=== PATIENT | male | born 1945 | race Caucasian/White ===

== ENCOUNTER 2016-05-13 11:00 | Day surgery (SDC) | payer MEDICARE, OTHER ==
[2016-05-11 13:56] VITALS: BMI 19.3
[~2016-05-13 11:00] MED LIST: LACTATED RINGERS 1,000 ML IV SCH
[2016-05-13] MEDS ORDERED: LIDOCAINE 1% 20 ML VIAL (10MG/ML) FOR IV START INTRADERMA ONE (11:25)
[2016-05-13 11:32] VITALS: RESP 16; TEMP 98.4
[2016-05-13] MEDS ORDERED: LIDOCAINE 1% INJ 10MG/ML (20 ML MDV) ONE (11:49)
[2016-05-13] MEDS ORDERED: PROPOFOL 10 MG/ML 20 ML VIAL IV ONE (11:49)
--- NOTE | 2016-05-13 12:22 | P.PCN ---
Date of Procedure: 05/13/16 Procedure(s) Performed: Brief history: Patient is a pleasant 72-year-old white male, scheduled for an elective upper endoscopy as well as colonoscopy as a part of evaluation of abdominal pain, mostly in the epigastric area, change in bowel habits and weight loss for the last 6 months duration. Procedure performed: Esophagogastroduodenoscopy with biopsy Colonoscopy with snare polypectomy Preoperative diagnosis: Epigastric pain Change in bowel habits and weight loss Anesthesia: MAC Procedure: After informed consent was obtained from the patient was brought into the endoscopy unit and IV conscious sedation was administered by anesthesia under continuous monitoring. Initially upper endoscopy was done. The Olympus GF 160 video endoscope was inserted inserted into the mouth and esophagus intubated without any difficulty and was gradually advanced into the stomach and duodenum and carefully examined. The bulb and second part of the duodenum appeared normal. The scope was then withdrawn into the stomach adequately insufflated with air and upon careful examination the antrum had mild gastritis and biopsies were done from this area. The body, cardia and fundus appeared normal. The scope was then withdrawn into the esophagus. The GE junction was located at 43 cm to the incisors. The GE junction appeared irregular and there was 2 tongues of Canela's appearing mucosa extending 1 cm proximal to the GE junction and this was biopsied. Rest of the esophagus appeared normal. Patient tolerated the procedure well. At this time the patient continued to remain sedation. Initial digital rectal examination was normal. Olympus CF 160 video colonoscope was then inserted into the rectum and gradually advanced to the cecum without any difficulty. Careful examination was performed as the scope was gradually being withdrawn. The prep was excellent. The cecum, ascending colon, transverse colon, descending colon, appeared normal. In the sigmoid colon there were 2 polyps measuring 1 cm and 5 mm in size both of which were removed by snare polypectomy. In the rectum there was a 5 mm polyp removed by snare polypectomy. The rest of the sigmoid colon and rectum appeared normal. Retroflexion was performed in the rectum and no lesions were noted. Patient tolerated the procedure well. Impression: 1. Upper endoscopy revealed mild antral gastritis and short segment Canela's esophagus, status post biopsy 2. Colonoscopy revealed 5 mm and 1 cm; polyp status post polypectomy and 5 mm rectal polyp status post polypectomy. Recommendations: Findings of this examination were discussed with the patient as well as his family. He was advised to follow with the biopsy results. If the biopsy shows a tubular adenoma he can have a repeat colonoscopy in 3 years.
[2016-05-13] MEDS ORDERED: IV FLUID CONTINUATION 1,000 ML IV ONE (12:23)
[2016-05-13 12:25] VITALS: PULSE 67
[2016-05-13 12:42] VITALS: BP 110/65
== END 2016-05-13 13:19 | disposition home or self-care (01) ==
LOC: ORWHC2ENDO 11:00
PROVIDERS: ATTEND Internal Medicine Gastroenterology
DX: D12.5 Benign neoplasm of sigmoid colon (principal); D12.8 Benign neoplasm of rectum; K29.50 Unspecified chronic gastritis without bleeding; K21.9 Gastro-esophageal reflux disease without esophagitis; E78.5 Hyperlipidemia, unspecified; M10.9 Gout, unspecified; F39 Unspecified mood [affective] disorder; F17.200 Nicotine dependence, unspecified, uncomplicated; Z79.899 Other long term (current) drug therapy
CPT/HCPCS: 88305; 88342; 45385; 43239; J2001; J2704; 99153

== ENCOUNTER 2016-05-30 11:39 | Emergency (ER) | payer MEDICARE, OTHER ==
--- NOTE | 2016-05-30 12:06 | ED ---
General Adult HPI - General Chief complaint: Back Pain/Injury Stated complaint: Left Shoulder Pain Time Seen by Provider: 05/30/16 11:53 Source: patient, EMS, RN notes reviewed Mode of arrival: EMS Limitations: no limitations - History of Present Illness Initial comments: Patient 71-year-old male who presents emergency room today with a chief complaint of pain to the left shoulder last 4 days. He states he had a difficult time putting his sweater earlier today. States is worse with certain movements of extension and abduction of the left shoulder. States feels similar joint. States he had similar symptoms approximately a year ago after a fall. Patient denies any injury or trauma to the area. Patient's unsure what he 's been taking at home for the pain. States is over at the [facility]. Patient denies any other complaints or associated symptoms. Patient denies any recent fever, chills, shortness of breath, chest pain, back pain, abdominal pain , nausea or vomiting, numbness or tingling, dysuria or hematuria, constipation or diarrhea, headaches or visual changes, or any other complaints. - Related Data Home Medications Medication Instructions Recorded Confirmed Docusate [Colace] 100 mg PO DAILY 08/19/13 05/30/16 Lovastatin [Mevacor] 20 mg PO HS 08/19/13 05/30/16 Acetaminophen [Tylenol] 650 mg PO BID PRN 02/13/14 05/30/16 Allopurinol [Zyloprim] 100 mg PO DAILY 02/13/14 05/30/16 Loratadine [Claritin] 10 mg PO DAILY PRN 02/13/14 05/30/16 [place]-3 Acid Ethyl Esters [Lovaza] 1 gm PO BID 02/13/14 05/30/16 Bismuth Subsalicylate 524 mg PO DAILY PRN 05/10/16 05/30/16 [Pepto-Bismol] Omeprazole [PriLOSEC] 40 mg PO DAILY 05/10/16 05/30/16 QUEtiapine [SEROquel] 100 mg PO HS 05/30/16 05/30/16 Previous Rx's Medication Instructions Recorded Ibuprofen [Motrin] 600 mg PO Q6HR PRN #20 day 05/30/16 Allergies Allergy/AdvReac Type Severity Reaction Status Date / Time No Known Allergies Allergy Verified 05/30/16 12:21 Review of Systems ROS Statement: Those systems with pertinent positive or pertinent negative responses have been documented in the HPI. ROS Other: All systems not noted in ROS Statement are negative. Past Medical History Past Medical History: GERD/Reflux, Hyperlipidemia, Hypertension, Osteoarthritis (OA) Additional Past Medical History / Comment(s): Charmaine [facility] at [facility] states "no seizure disorder", A&O x3-has public guardian Renate Zimmer, ambulatory. ALERT AND ORIENTED. History of Any Multi-Drug Resistant Organisms: None Reported Past Surgical History: No Surgical Hx Reported Additional Past Surgical History / Comment(s): Rt cataract Mar 2015 Past Anesthesia/Blood Transfusion Reactions: Unable to Obtain Additional Past Anesthesia/Blood Transfusion Reaction / Comment(s): never has had general anesthesia, unknown family hx, unknown blood transfusion hx Past Psychological History: Depression, Schizophrenia Smoking Status: Current every day smoker Past Alcohol Use History: None Reported Additional Past Alcohol Use History / Comment(s): smokes 1ppd. Pt. Charmaine at [facility] "states Anders comes and goes at [place], NO ALCOHOL RECENTLY " Past Drug Use History: None Reported Additional Drug Use History / Comment(s): Pt denies. - Past Family History Father History Unknown: Yes Mother History Unknown: Yes General Exam - General Exam Comments Initial Comments: General: The patient is awake and alert, in no distress, and does not appear acutely ill. Eye: Pupils are equal, round and reactive to light, extra-ocular movements are intact. No nystagmus. There is normal conjunctiva bilaterally. No signs of icterus. Ears, nose, mouth and throat: There are moist mucous membranes and no oral lesions. Neck: The neck is supple, there is no tenderness or JVD. Cardiovascular: There is a regular rate and rhythm. No murmur, rub or gallop is appreciated. Respiratory: Lungs are clear to auscultation, respirations are non-labored, breath sounds are equal. No wheezes, stridor, rales, or rhonchi. Gastrointestinal: Soft, non-distended, non-tender abdomen without masses or organomegaly noted. There is no rebound or guarding present. No CVA tenderness. Bowel sounds are unremarkable. Musculoskeletal: Normal appearance of the left shoulder no obvious deformity. No redness or swelling. Does have tenderness to the posterior anterior joint over the humeral head. Patient sensations are intact. Strength 5/5. Sensation intact. Pulses equal bilaterally 2+. Neurological: A&O x 3. CN II-XII intact, There are no obvious motor or sensory deficits. Coordination appears grossly intact. Speech is normal. Skin: Skin is warm and dry and no rashes or lesions are noted. Psychiatric: Cooperative, appropriate mood & affect, normal judgment. Limitations: no limitations Course Vital Signs 05/30/16 11:47 Temperature 98.3 F Pulse Rate 77 Respiratory 20 Rate Blood Pressure 122/71 O2 Sat by Pulse 96 Oximetry Medical Decision Making - Medical Decision Making Case discussed in detail with attending physician Dr. Leong. Patient's x-ray reviewed in his negative for any acute fracture dislocation. Results were discussed with the patient. Was discussed about possible impingement with the patient. Advised patient follow-up with orthopedics. Will be started on anti- inflammatories for her symptoms. Advised to do range of motion exercises. Advised to return if any symptoms increase or worsen. Disposition Clinical Impression: Shoulder pain, left Disposition: HOME SELF-CARE Condition: Good Instructions: Shoulder Pain (ED) Additional Instructions: Please use medication as discussed. Please follow-up with family doctor/ orthopedics in the next 2 days. Please return to emergency room if the symptoms increase or worsen or for any other concerns. Prescriptions: Ibuprofen [Motrin] 600 mg PO Q6HR PRN #20 day PRN Reason: Pain Referrals: Juan Kurtz MD [Primary Care Provider] - 1-2 days Jyoti Boateng DO [Doctor of Osteopathic Medicine] - 1-2 days Time of Disposition: 13:07
--- NOTE | 2016-05-30 12:19 | XR ---
Left shoulder HISTORY: Left shoulder pain 3 views of the left shoulder Hypertrophic changes present at the acromioclavicular joint. Left lung apex as visualized is normal. Old left-sided rib fracture at the eighth and ninth ribs appears healed. Pseudocysts suspected within the humeral head. Mild marginal spurring present at the glenohumeral joint, there may be some chondr ocalcinosis. Distal acromion appears downturned, there may be a small spur. IMPRESSION: Osteoarthritis, additional findings above. Correlate for impingement.
[2016-05-30 13:27] VITALS: BP 128/77; PULSE 68; RESP 16; TEMP 98.1
== END 2016-05-30 13:27 | disposition home or self-care (01) ==
LOC: EEVIPCON 11:39 → EC 11:39
DX: M25.512 Pain in left shoulder (principal); K21.9 Gastro-esophageal reflux disease without esophagitis; E78.5 Hyperlipidemia, unspecified; F32.9 Major depressive disorder, single episode, unspecified; F20.9 Schizophrenia, unspecified; F17.200 Nicotine dependence, unspecified, uncomplicated; Z79.899 Other long term (current) drug therapy
CPT/HCPCS: 99283

== ENCOUNTER 2017-04-17 04:30 | Emergency (ER) | payer MEDICARE, OTHER ==
[2017-04-17 05:54] LABS: Basophils # (A) 0.1 k/uL (0-0.2); Basophils % (A) 1 %; Eosinophils # (A) 0.4 k/uL (0-0.7); Eosinophils % (A) 5 %; HCT 43.9 % (39.0-53.0); HGB 14.6 gm/dL (13.0-17.5); Lymphocytes # (A) 1.4 k/uL (1.0-4.8); Lymphocytes % (A) 18 %; MCH 30.8 pg (25.0-35.0); MCHC 33.2 g/dL (31.0-37.0); Mean Platelet Volume 7.9; Monocytes # (A) 0.7 k/uL (0-1.0); Monocytes % (A) 9 %; Neutrophils # (A) 5.1 k/uL (1.3-7.7); Neutrophils % (A) 66 %; Platelet Count 177 k/uL (150-450); RBC 4.72 m/uL (4.30-5.90); RDW 13.7 % (11.5-15.5); WBC 7.8 k/uL (3.8-10.6)
[2017-04-17 05:58] LABS: Partial Thromboplastin Time 25.5 sec (22.0-30.0); Prothrombin Time 9.7 sec (9.0-12.0)
[2017-04-17 06:12] LABS: ALT 25 U/L (21-72); AST 18 U/L (17-59); Albumin 3.5 g/dL (3.5-5.0); Alkaline Phosphatase 84 U/L (38-126); Anion Gap 7 mmol/L; Blood Urea Nitrogen 16 mg/dL (9-20); Calcium 9.5 mg/dL (8.4-10.2); Carbon Dioxide 28 mmol/L (22-30); Chloride 107 mmol/L (98-107); Glucose 113 mg/dL (74-99); Potassium 4.1 mmol/L (3.5-5.1); Sodium 142 mmol/L (137-145); Total Bilirubin 0.4 mg/dL (0.2-1.3); Total Protein 6.1 g/dL (6.3-8.2)
[2017-04-17 06:16] LABS: Creatine Kinase 108 U/L (55-170)
[2017-04-17 06:29] LABS: Creatine Kinase MB 1.4 ng/mL (0.0-2.4); Troponin I <0.012 ng/mL (0.000-0.034)
[2017-04-17] MEDS ORDERED: HYDROcodone/APAP 5-325MG 1 EACH TAB PO STA (06:36)
--- NOTE | 2017-04-17 06:52 | XR ---
EXAM: XR Chest, 1 View CLINICAL HISTORY: Chest pain TECHNIQUE: Frontal view of the chest. COMPARISON: No relevant prior studies available. FINDINGS: Lungs: Patchy airspace opacity seen throughout both lungs which may represent an inflammatory or infectious process and less likely pulmonary edema. Pleural space: Unremarkable. No pneumothorax. Heart: Mild enlargement of the heart. Mediastinum: Unremarkable. Bones/joints: Unremarkable. IMPRESSION: Patchy airspace opacity seen throughout both lungs which may represent an inflammatory or infectious process and less likely pulmonary edema.
--- NOTE | 2017-04-17 06:55 | XR ---
EXAM: XR Left Shoulder Complete, 2 or More Views CLINICAL HISTORY: Pain TECHNIQUE: Two or more views of the left shoulder. COMPARISON: X-ray dated 05/30/2016 FINDINGS: Bones/joints: No acute fracture or traumatic malalignment. Mild degenerative changes. Soft tissues: Unremarkable. IMPRESSION: No acute findings.
--- NOTE | 2017-04-17 07:01 | ED ---
Extremity Problem HPI <Qamar Paul - Last Filed: 04/17/17 08:55> - General Source: patient, EMS Mode of arrival: EMS Limitations: no limitations - History of Present Illness MD Complaint: joint pain -: days(s) Location: left, upper extremity History of Same: Yes Quality: aching Consistency: constant Improves with: immobilization Worsens with: other (Movement) <Roman Deluca - Last Filed: 04/23/17 01:26> - General Chief complaint: Extremity Problem,Nontraumatic Stated complaint: shoulder pain Time Seen by Provider: 04/17/17 04:46 - History of Present Illness Initial comments: This patient is a 72-year-old man who presents to be evaluated for left shoulder pain. He indicates the trapezius and deltoid areas on the left. He states that it has been going on for nearly 24 hours. He states that pain is an aching, and he has a hard time characterizing it. It is moderate intensity, though it improves when he immobilize it and he has been wearing a splint, and it worsens with trying to raise his arm. He denies any radiation. No associated symptoms, including no weakness or numbness. No anginal type symptoms including no dyspnea, diaphoresis, nausea or vomiting, palpitations, lightheadedness or syncope. (Roman Deluca) - Related Data Home Medications Medication Instructions Recorded Confirmed Docusate [Colace] 100 mg PO DAILY PRN 08/19/13 04/17/17 Lovastatin [Mevacor] 20 mg PO HS 08/19/13 04/17/17 Acetaminophen [Tylenol] 650 mg PO BID PRN 02/13/14 04/17/17 Allopurinol [Zyloprim] 100 mg PO DAILY 02/13/14 04/17/17 Loratadine [Claritin] 10 mg PO DAILY PRN 02/13/14 04/17/17 [place]-3 Acid Ethyl Esters [Lovaza] 1 gm PO BID 02/13/14 04/17/17 Bismuth Subsalicylate 524 mg PO DAILY PRN 05/10/16 04/17/17 [Pepto-Bismol] Omeprazole [PriLOSEC] 40 mg PO DAILY 05/10/16 04/17/17 Ergocalciferol (Vitamin D2) 50,000 unit PO Q14D 04/17/17 04/17/17 [Vitamin D2] Propylene Glycol/Peg 400/Pf 1 drop BOTH EYES BID PRN 04/17/17 04/17/17 [Systane 0.3-0.4% Eye Drops] QUEtiapine [SEROquel] 50 mg PO HS 04/17/17 04/17/17 Simethicone 80 mg PO QID PRN 04/17/17 04/17/17 traZODone HCL 25 mg PO HS 04/17/17 04/17/17 Allergies Allergy/AdvReac Type Severity Reaction Status Date / Time No Known Allergies Allergy Verified 04/17/17 07:57 Review of Systems ROS Other: All systems not noted in ROS Statement are negative. <Qamar Paul - Last Filed: 04/17/17 08:55> ROS Other: All systems not noted in ROS Statement are negative. Constitutional: Denies: fever, weakness Respiratory: Denies: cough, dyspnea Cardiovascular: Denies: chest pain, palpitations, edema, syncope Gastrointestinal: Denies: abdominal pain, nausea, vomiting Musculoskeletal: Reports: myalgia. Denies: back pain, joint swelling, arthralgia Skin: Denies: rash Neurological: Denies: headache, weakness, numbness <Roman Deluca - Last Filed: 04/23/17 01:26> ROS Statement: Those systems with pertinent positive or pertinent negative responses have been documented in the HPI. Past Medical History Past Medical History: GERD/Reflux, Hyperlipidemia, Hypertension, Osteoarthritis (OA) Additional Past Medical History / Comment(s): gout, Charmaine at [facility] states "no seizure disorder", A&O x3-has public guardian Renate Zimmer ambulatory. ALERT AND ORIENTED. History of Any Multi-Drug Resistant Organisms: None Reported Past Surgical History: No Surgical Hx Reported Additional Past Surgical History / Comment(s): Rt cataract Mar 2015 Past Anesthesia/Blood Transfusion Reactions: Unable to Obtain Additional Past Anesthesia/Blood Transfusion Reaction / Comment(s): never has had general anesthesia, unknown family hx, unknown blood transfusion hx Past Psychological History: Depression, Schizophrenia Smoking Status: Current every day smoker Past Alcohol Use History: None Reported Past Drug Use History: None Reported - Past Family History Father History Unknown: Yes Mother History Unknown: Yes <Roman Deluca - Last Filed: 04/23/17 01:26> General Exam Limitations: no limitations General appearance: alert, in no apparent distress Head exam: Present: atraumatic, normocephalic Eye exam: Present: normal appearance. Absent: scleral icterus, conjunctival injection Respiratory exam: Present: normal lung sounds bilaterally. Absent: respiratory distress, wheezes, rales, rhonchi, stridor Cardiovascular Exam: Present: regular rate, normal rhythm, normal heart sounds. Absent: systolic murmur, diastolic murmur, rubs, gallop GI/Abdominal exam: Present: soft. Absent: distended, tenderness, guarding, rebound Extremities exam: Present: normal inspection, tenderness (Trapezius), normal capillary refill Left Shoulder Exam: Present: tenderness ((Please is), other (Patient is wearing a sling on the left arm). Absent: full ROM (Pain with abduction), swelling, abrasion, laceration, ecchymosis, deformity, crepitus, dislocation, erythema, tenderness over AC joint Upper Arm exam: Present: normal inspection, full ROM. Absent: tenderness, swelling, abrasion, laceration, ecchymosis, deformity, crepidus, dislocation, erythema Elbow exam: Present: normal inspection, full ROM. Absent: tenderness, swelling Forearm Wrist exam: Present: normal inspection, full ROM. Absent: tenderness, swelling Hand Wrist exam: Present: normal inspection, full ROM. Absent: tenderness Neurosensory exam: Present: 2-point discrimination, radial nerve intact, ulnar nerve intact, median nerve intact Vascular: Present: normal capillary refill, radial pulse (Normal). Absent: vascular compromise Back exam: Absent: vertebral tenderness Neurological exam: Present: alert. Absent: motor sensory deficit Skin exam: Present: warm, dry, intact, normal color. Absent: rash <YosiRoman - Last Filed: 04/23/17 01:26> Vital Signs 04/17/17 04/17/17 04/17/17 04:31 05:51 08:14 Temperature 98.3 F Pulse Rate 75 73 87 Respiratory 20 20 16 Rate Blood Pressure 127/70 133/71 115/59 O2 Sat by Pulse 96 96 95 Oximetry 04/17/17 09:31 Temperature 97.8 F Pulse Rate 96 Respiratory 18 Rate Blood Pressure 116/68 O2 Sat by Pulse 95 Oximetry Medical Decision Making - Lab Data Result diagrams: 04/17/17 05:37 04/17/17 05:37 - EKG Data -: EKG Interpreted by Me (EKG shows normal sinus rhythm rate of 74, QRS NC 170, QRS 06, QTc 424) <Qamar Paul - Last Filed: 04/17/17 08:55> - Lab Data Result diagrams: 04/17/17 05:37 04/17/17 05:37 <Roman Deluca - Last Filed: 04/23/17 01:26> - Medical Decision Making Patient is 72-year-old man presenting with left shoulder pain that seems to be musculoskeletal in nature, however he is not able to fully describe the pain, and given age and risk factors patient will be observed pending a second troponin at time of sign out. (Roman Deluca) - Lab Data Lab Results 04/17/17 04/17/17 04/17/17 Range/Units 05:37 05:37 05:37 WBC 7.8 (3.8-10.6) k/uL RBC 4.72 (4.30-5.90) m/uL Hgb 14.6 (13.0-17.5) gm/dL Hct 43.9 (39.0-53.0) % MCV 93.0 (80.0-100.0) fL MCH 30.8 (25.0-35.0) pg MCHC 33.2 (31.0-37.0) g/dL RDW 13.7 (11.5-15.5) % Plt Count 177 (150-450) k/uL Neutrophils % 66 % Lymphocytes % 18 % Monocytes % 9 % Eosinophils % 5 % Basophils % 1 % Neutrophils # 5.1 (1.3-7.7) k/uL Lymphocytes # 1.4 (1.0-4.8) k/uL Monocytes # 0.7 (0-1.0) k/uL Eosinophils # 0.4 (0-0.7) k/uL Basophils # 0.1 (0-0.2) k/uL PT (9.0-12.0) sec INR (<1.2) APTT (22.0-30.0) sec Sodium 142 (137-145) mmol/L Potassium 4.1 (3.5-5.1) mmol/L Chloride 107 (98-107) mmol/L Carbon Dioxide 28 (22-30) mmol/L Anion Gap 7 mmol/L BUN 16 (9-20) mg/dL Creatinine 0.77 (0.66-1.25) mg/dL Est GFR (MDRD) Af Amer >60 (>60 ml/min/1.73 sqM) Est GFR (MDRD) Non-Af >60 (>60 ml/min/1.73 sqM) Glucose 113 H (74-99) mg/dL Calcium 9.5 (8.4-10.2) mg/dL Magnesium 2.0 (1.6-2.3) mg/dL Total Bilirubin 0.4 (0.2-1.3) mg/dL AST 18 (17-59) U/L ALT 25 (21-72) U/L Alkaline Phosphatase 84 (38-126) U/L Total Creatine Kinase 108 (55-170) U/L CK-MB (CK-2) 1.4 (0.0-2.4) ng/mL CK-MB (CK-2) Rel Index 1.3 Troponin I <0.012 (0.000-0.034) ng/mL Total Protein 6.1 L (6.3-8.2) g/dL Albumin 3.5 (3.5-5.0) g/dL 04/17/17 04/17/17 Range/Units 05:37 08:16 WBC (3.8-10.6) k/uL RBC (4.30-5.90) m/uL Hgb (13.0-17.5) gm/dL Hct (39.0-53.0) % MCV (80.0-100.0) fL MCH (25.0-35.0) pg MCHC (31.0-37.0) g/dL RDW (11.5-15.5) % Plt Count (150-450) k/uL Neutrophils % % Lymphocytes % % Monocytes % % Eosinophils % % Basophils % % Neutrophils # (1.3-7.7) k/uL Lymphocytes # (1.0-4.8) k/uL Monocytes # (0-1.0) k/uL Eosinophils # (0-0.7) k/uL Basophils # (0-0.2) k/uL PT 9.7 (9.0-12.0) sec INR 1.0 (<1.2) APTT 25.5 (22.0-30.0) sec Sodium (137-145) mmol/L Potassium (3.5-5.1) mmol/L Chloride (98-107) mmol/L Carbon Dioxide (22-30) mmol/L Anion Gap mmol/L BUN (9-20) mg/dL Creatinine (0.66-1.25) mg/dL Est GFR (MDRD) Af Amer (>60 ml/min/1.73 sqM) Est GFR (MDRD) Non-Af (>60 ml/min/1.73 sqM) Glucose (74-99) mg/dL Calcium (8.4-10.2) mg/dL Magnesium (1.6-2.3) mg/dL Total Bilirubin (0.2-1.3) mg/dL AST (17-59) U/L ALT (21-72) U/L Alkaline Phosphatase (38-126) U/L Total Creatine Kinase (55-170) U/L CK-MB (CK-2) (0.0-2.4) ng/mL CK-MB (CK-2) Rel Index Troponin I <0.012 (0.000-0.034) ng/mL Total Protein (6.3-8.2) g/dL Albumin (3.5-5.0) g/dL Disposition <Qamar Paul - Last Filed: 04/17/17 08:55> <Roman Deluca - Last Filed: 04/23/17 01:26> Clinical Impression: Left shoulder pain Disposition: HOME SELF-CARE Condition: Good Instructions: Shoulder Pain (ED) Referrals: None,Stated [Primary Care Provider] - 1-2 days
[2017-04-17 09:33] VITALS: BP 116/68; PULSE 96; RESP 18; TEMP 97.8
== END 2017-04-17 09:38 | disposition home or self-care (01) ==
LOC: EC 04:30 → EEVIPCON 04:30 → EC 09:38
DX: M25.512 Pain in left shoulder (principal); K21.9 Gastro-esophageal reflux disease without esophagitis; E78.5 Hyperlipidemia, unspecified; M10.9 Gout, unspecified; F32.9 Major depressive disorder, single episode, unspecified; F20.9 Schizophrenia, unspecified; F17.200 Nicotine dependence, unspecified, uncomplicated; Z79.899 Other long term (current) drug therapy
CPT/HCPCS: 36415; 71045; 80053; 82550; 82553; 83735; 84484; 85025; 85610; 85730; 93005; 99284

== ENCOUNTER 2018-02-03 17:38 | Emergency (ER) | payer MEDICARE, OTHER ==
--- NOTE | 2018-02-03 17:48 | ED ---
General Adult HPI - General Stated complaint: Acid reflex Time Seen by Provider: 02/03/18 17:41 Source: patient, RN notes reviewed Limitations: no limitations - History of Present Illness Initial comments: 72-year-old male with a past medical history of GERD, hypertension, hyperlipidemia presents to the emergency department for a chief complaint of lower abdominal pain 3 days. Patient describes it as a dull aching pain of the lower abdomen. He states he believes this is "gastric reflux" but denies any chest pain, burning pain, or upper abdominal pain. Patient states he has had this pain before and it has been intermittent for years. Patient admits he has not had normal bowel movements in the past few days and recently has had small hard bowel movements. He admits to nausea and has vomited twice today. He states he has been able to eat solids and to keep down liquids. He denies any urinary symptoms. Patient has no other complaints at this time including shortness of breath, chest pain, headache, or visual changes. - Related Data Home Medications Medication Instructions Recorded Confirmed Docusate [Colace] 100 mg PO DAILY PRN 08/19/13 04/17/17 Lovastatin [Mevacor] 20 mg PO HS 08/19/13 04/17/17 Acetaminophen [Tylenol] 650 mg PO BID PRN 02/13/14 04/17/17 Allopurinol [Zyloprim] 100 mg PO DAILY 02/13/14 04/17/17 Loratadine [Claritin] 10 mg PO DAILY PRN 02/13/14 04/17/17 Beemer-3 Acid Ethyl Esters [Lovaza] 1 gm PO BID 02/13/14 04/17/17 Bismuth Subsalicylate 524 mg PO DAILY PRN 05/10/16 04/17/17 [Pepto-Bismol] Omeprazole [PriLOSEC] 40 mg PO DAILY 05/10/16 04/17/17 Ergocalciferol (Vitamin D2) 50,000 unit PO Q14D 04/17/17 04/17/17 [Vitamin D2] Propylene Glycol/Peg 400/Pf 1 drop BOTH EYES BID PRN 04/17/17 04/17/17 [Systane 0.3-0.4% Eye Drops] QUEtiapine [SEROquel] 50 mg PO HS 04/17/17 04/17/17 Simethicone 80 mg PO QID PRN 04/17/17 04/17/17 traZODone HCL 25 mg PO HS 04/17/17 04/17/17 Previous Rx's Medication Instructions Recorded Docusate Sodium [Dok] 100 mg PO BID #20 capsule 02/03/18 Allergies Allergy/AdvReac Type Severity Reaction Status Date / Time No Known Allergies Allergy Verified 02/03/18 17:54 Review of Systems ROS Statement: Those systems with pertinent positive or pertinent negative responses have been documented in the HPI. ROS Other: All systems not noted in ROS Statement are negative. Past Medical History Past Medical History: GERD/Reflux, Hyperlipidemia, Hypertension, Osteoarthritis (OA) Additional Past Medical History / Comment(s): gout, Charmaine at [facility] states "no seizure disorder", A&O x3-has public guardian Renate Zimmer, ambulatory. ALERT AND ORIENTED. History of Any Multi-Drug Resistant Organisms: None Reported Past Surgical History: No Surgical Hx Reported Additional Past Surgical History / Comment(s): Rt cataract Mar 2015 Past Anesthesia/Blood Transfusion Reactions: Unable to Obtain Additional Past Anesthesia/Blood Transfusion Reaction / Comment(s): never has had general anesthesia, unknown family hx, unknown blood transfusion hx Past Psychological History: Depression, Schizophrenia Smoking Status: Current every day smoker Past Alcohol Use History: None Reported Past Drug Use History: None Reported - Past Family History Father History Unknown: Yes Mother History Unknown: Yes General Exam General appearance: alert, in no apparent distress Head exam: Present: atraumatic, normocephalic, normal inspection Eye exam: Present: normal appearance, PERRL, EOMI. Absent: scleral icterus, conjunctival injection, periorbital swelling ENT exam: Present: normal exam, mucous membranes moist Neck exam: Present: normal inspection, full ROM. Absent: tenderness, meningismus, lymphadenopathy Respiratory exam: Present: normal lung sounds bilaterally. Absent: respiratory distress, wheezes, rales, rhonchi, stridor Cardiovascular Exam: Present: regular rate, normal rhythm, normal heart sounds. Absent: systolic murmur, diastolic murmur, rubs, gallop, clicks GI/Abdominal exam: Present: soft, tenderness (Right and left lower quadrant abdominal tenderness with guarding), normal bowel sounds. Absent: distended, guarding, rebound, rigid Neurological exam: Present: alert, oriented X3, CN II-XII intact Psychiatric exam: Present: normal affect, normal mood Course Vital Signs 02/03/18 02/03/18 02/03/18 17:52 18:26 20:06 Temperature 98.0 F Pulse Rate 75 73 78 Respiratory 16 22 18 Rate Blood Pressure 117/80 120/83 124/77 O2 Sat by Pulse 96 97 98 Oximetry Medical Decision Making - Medical Decision Making 72-year-old male presents to the emergency department for a chief complaint of abdominal pain 3 days. Patient states it is a dull aching pain in the lower abdomen. He denies any chest pain, burning pain, or upper abdominal pain. Patient did vomit twice today but has been able to keep down solids and liquids. Vitals are stable. Patient is well-appearing. On exam patient does have lower abdominal tenderness with mild guarding present. No upper abdominal tenderness. Negative Ojeda sign. CBC and CMP are unremarkable. Urine does not show any evidence of infection. CT abdomen and pelvis with contrast shows mild pericolonic fat stranding that may be related to mild colitis with fluid- filled loops of nondilated small bowel throughout the abdomen suggesting mild ileus. Patient does have moderate amount of retained colonic stool as well. Pancreatic ductal dilation of the pancreatic head is also visualized and outpatient evaluation is recommended. Given patient's clinical complaints of constipation such as inability to produce a bowel movement over the past few days I did perform a rectal exam and there is no impaction, soft stool noted. Enema was given to patient which was successful in producing stool. Patient states his pain is much better at this time. I discussed with patient following up with GI in the next 1-2 days for this pancreatic ductal dilation as well as abdominal pain and ileus. Patient is aware of the pancreatic ductal dilation. He will take stool softeners for constipation. He is aware to return to the emergency department if he has any worsening symptoms. - Lab Data Result diagrams: 02/03/18 17:45 02/03/18 17:45 Lab Results 02/03/18 02/03/18 02/03/18 Range/Units 17:45 17:45 18:10 WBC 7.1 (3.8-10.6) k/uL RBC 5.36 (4.30-5.90) m/uL Hgb 16.5 (13.0-17.5) gm/dL Hct 49.7 (39.0-53.0) % MCV 92.7 (80.0-100.0) fL MCH 30.8 (25.0-35.0) pg MCHC 33.3 (31.0-37.0) g/dL RDW 13.5 (11.5-15.5) % Plt Count 236 (150-450) k/uL Neutrophils % 60 % Lymphocytes % 27 % Monocytes % 6 % Eosinophils % 4 % Basophils % 1 % Neutrophils # 4.2 (1.3-7.7) k/uL Lymphocytes # 1.9 (1.0-4.8) k/uL Monocytes # 0.5 (0-1.0) k/uL Eosinophils # 0.3 (0-0.7) k/uL Basophils # 0.1 (0-0.2) k/uL Sodium 137 (137-145) mmol/L Potassium 5.0 (3.5-5.1) mmol/L Chloride 103 (98-107) mmol/L Carbon Dioxide 23 (22-30) mmol/L Anion Gap 11 mmol/L BUN 14 (9-20) mg/dL Creatinine 0.88 (0.66-1.25) mg/dL Est GFR (CKD-EPI)AfAm >90 (>60 ml/min/1.73 sqM) Est GFR (CKD-EPI)NonAf 85 (>60 ml/min/1.73 sqM) Glucose 92 (74-99) mg/dL Calcium 10.2 (8.4-10.2) mg/dL Total Bilirubin 0.9 (0.2-1.3) mg/dL AST 28 (17-59) U/L ALT 26 (21-72) U/L Alkaline Phosphatase 109 (38-126) U/L Total Protein 7.9 (6.3-8.2) g/dL Albumin 4.6 (3.5-5.0) g/dL Amylase 62 (30-110) U/L Lipase 36 (23-300) U/L Urine Color Yellow Urine Appearance Clear (Clear) Urine pH 5.5 (5.0-8.0) Ur Specific [place] 1.011 (1.001-1.035) Urine Protein Negative (Negative) Urine Glucose (UA) Negative (Negative) Urine Ketones Negative (Negative) Urine Blood Trace H (Negative) Urine Nitrite Negative (Negative) Urine Bilirubin Negative (Negative) Urine Urobilinogen <2.0 (<2.0) mg/dL Ur Leukocyte Esterase Negative (Negative) Urine RBC 1 (0-5) /hpf Urine WBC <1 (0-5) /hpf Urine Mucus Moderate H (None) /hpf Disposition Clinical Impression: Abdominal pain, Dilated pancreatic duct, Ileus Disposition: HOME SELF-CARE Condition: Good Instructions: Abdominal Pain (ED) Additional Instructions: Please take stool softener as directed. Please follow-up with GI in 1-2 days for pancreatic duct as well as abdominal pain. Please return to the emergency department if you have any worsening symptoms. Prescriptions: Docusate Sodium [Dok] 100 mg PO BID #20 capsule Is patient prescribed a controlled substance at d/c from ED?: No [facility] - [facility]-2 days Juvencio Hanna MD [STAFF PHYSICIAN] - 1-2 days Time of Disposition: 20:40
[2018-02-03] MEDS ORDERED: SODIUM CHLORIDE 0.9% 1,000 ML IV STA (18:08)
[2018-02-03] MEDS ORDERED: MORPHINE SULFATE 2 MG/ML SYRINGE IVP STA (18:08)
[2018-02-03] MEDS ORDERED: ONDANSETRON 4 MG/2 ML VIAL IVP STA (18:08)
[2018-02-03 18:29] LABS: Basophils # (A) 0.1 k/uL (0-0.2); Basophils % (A) 1 %; Eosinophils # (A) 0.3 k/uL (0-0.7); Eosinophils % (A) 4 %; HCT 49.7 % (39.0-53.0); HGB 16.5 gm/dL (13.0-17.5); Lymphocytes # (A) 1.9 k/uL (1.0-4.8); Lymphocytes % (A) 27 %; MCH 30.8 pg (25.0-35.0); MCHC 33.3 g/dL (31.0-37.0); MCV 92.7 fL (80.0-100.0); Mean Platelet Volume 7.5; Monocytes # (A) 0.5 k/uL (0-1.0); Monocytes % (A) 6 %; Neutrophils # (A) 4.2 k/uL (1.3-7.7); Neutrophils % (A) 60 %; Platelet Count 236 k/uL (150-450); RBC 5.36 m/uL (4.30-5.90); RDW 13.5 % (11.5-15.5); WBC 7.1 k/uL (3.8-10.6)
[2018-02-03 18:39] LABS: Appearance,Urine Clear (Clear); Bilirubin,Urine Negative (Negative); Blood,Urine Trace (Negative); Color,Urine Yellow; Glucose,Urine (UA) Negative (Negative); Ketones,Urine Negative (Negative); Leukocyte Esterase,Urine Negative (Negative); Mucus,Urine Moderate /hpf; Nitrite,Urine Negative (Negative); PH, Urine 5.5 (5.0-8.0); Protein,Urine Negative (Negative); RBC,Urine 1 /hpf (0-5); Specific Gravity,Urine 1.011 (1.001-1.035); Urobilinogen,Urine <2.0 mg/dL (<2.0); WBC,Urine <1 /hpf (0-5)
[2018-02-03 18:44] LABS: ALT 26 U/L (21-72); AST 28 U/L (17-59); Albumin 4.6 g/dL (3.5-5.0); Alkaline Phosphatase 109 U/L (38-126); Amylase 62 U/L (30-110); Anion Gap 11 mmol/L; Blood Urea Nitrogen 14 mg/dL (9-20); Calcium 10.2 mg/dL (8.4-10.2); Carbon Dioxide 23 mmol/L (22-30); Chloride 103 mmol/L (98-107); Glucose 92 mg/dL (74-99); Lipase 36 U/L (23-300); Sodium 137 mmol/L (137-145); Total Bilirubin 0.9 mg/dL (0.2-1.3); Total Protein 7.9 g/dL (6.3-8.2)
--- NOTE | 2018-02-03 19:37 | CT ---
EXAMINATION TYPE: CT abdomen pelvis w con DATE OF EXAM: 02/03/2018 COMPARISON: None HISTORY: generalized pain with reflux CT DLP: 551.4 mGycm Automated exposure control for dose reduction was used. TECHNIQUE: Helical acquisition of images was performed from the lung bases through the pelvis. CONTRAST: Performed without Oral Contrast and with IV Contrast, patient injected with 100 mL of Isovue 300. FINDINGS: LUNG BASES: There are scattered pulmonary blebs and bibasilar subsegmental atelectasis at the lung ba ses. There is also a small hiatal hernia in the posterior mediastinum and few subcentimeter lymph nod es LIVER/GB: Too small to accurately characterize 6 mm hypoattenuated hepatic lesion is seen on image 16 within segment 7 of the liver. Very small wedge-shaped area of hypoattenuation is seen near the fiss ure for the falciform ligament on image 27 and 28 most commonly related to focal fatty infiltration R emainder the liver is unremarkable in enhancement. PANCREAS: Main pancreatic duct is slightly prominent although nonenlarged the pancreatic body. Main p ancreatic duct is mildly enlarged. The pancreatic head measuring up to 4.6 mm. No pancreatic head mas s is seen on today's examination. However further evaluation with MRCP is recommended on a nonemergen t basis. SPLEEN: No significant abnormality is seen. No splenomegaly. ADRENALS: No significant abnormality is seen. KIDNEYS: Kidneys enhance and excrete symmetrically. No hydronephrosis. FREE AIR: No free air is visualized. REPRODUCTIVE ORGANS: Prostate gland is heterogenous containing central zone calcifications. URINARY BLADDER: No significant abnormality is seen. ADENOPATHY: No greater than 1 cm short axis lymph node is seen within the abdomen or pelvis. OSSEOUS STRUCTURES: M multilevel degenerative changes of the spine and femoral acetabular joints are seen. Nonspecific sclerotic osseous foci are seen of L3 and possibly within S1. Femoral head and trell tabular subchondral cysts are noted. BOWEL: Appendix is retrocecal and without periappendiceal fat stranding. There is a moderate amount retained colonic stool. There is very subtle pericolonic fat stranding surrounding the hepatic flexur e, possibly related to mild colitis. Fluid-filled loops of small bowel are seen throughout the abdome n with few air-fluid levels. IMPRESSION: 1. VERY MILD HEPATIC FLEXURE PERICOLONIC FAT STRANDING MAY RELATE TO MILD COLITIS WITH FLUID-FILLED L OOPS OF NONDILATED SMALL BOWEL THROUGHOUT THE ABDOMEN SUGGESTING MILD ILEUS. 2. PANCREATIC DUCTAL DILATION OF THE PANCREATIC HEAD FOR WHICH NONEMERGENT FURTHER EVALUATION WITH MR CP IS RECOMMENDED. TOO SMALL TO ACCURATELY CHARACTERIZE HEPATIC LESION COULD ALSO BE CHARACTERIZED ON THIS EXAM IF CONTRAST IS GIVEN.
[2018-02-03] MEDS ORDERED: NA PHOS,M-B/NA PHOS,DI-BA 133 ML ENEMA RECTAL STA (19:48)
[2018-02-03 20:07] VITALS: RESP 18
[2018-02-03 21:34] VITALS: BP 127/68; PULSE 76; TEMP 98.4
== END 2018-02-03 21:34 | disposition home or self-care (01) ==
LOC: EC 17:38 → SUPCPDRO 17:38 → EC 21:34
DX: K56.7 Ileus, unspecified (principal); K86.89 Other specified diseases of pancreas; K59.00 Constipation, unspecified; E78.5 Hyperlipidemia, unspecified; I10 Essential (primary) hypertension; K21.9 Gastro-esophageal reflux disease without esophagitis; M10.9 Gout, unspecified; F20.9 Schizophrenia, unspecified; F32.9 Major depressive disorder, single episode, unspecified; F17.200 Nicotine dependence, unspecified, uncomplicated; Z79.899 Other long term (current) drug therapy
CPT/HCPCS: 36415; 80053; 82150; 83690; 85025; 81001; 74177; 99285; 96374; 96375; 96361; J2405; J2270; Q9967

== ENCOUNTER 2018-02-05 21:07 | Emergency (ER) | payer MEDICARE, OTHER ==
[2018-02-05] MEDS ORDERED: SODIUM CHLORIDE 0.9% 500 ML 500 ML IV STA (22:32)
--- NOTE | 2018-02-05 23:12 | XR ---
EXAMINATION TYPE: XR KUB DATE OF EXAM: 02/05/2018 COMPARISON: 02/02/2014 HISTORY: Abdominal pain TECHNIQUE: 2 views supine FINDINGS: There is no sign of intestinal obstruction or pneumoperitoneum. Fecal pattern is normal. Th ere are no pathologic calcifications. Lung bases are clear. IMPRESSION: Nonacute abdomen. No change.
[2018-02-05 23:19] LABS: Basophils % (A) 1 %; Eosinophils # (A) 0.5 k/uL (0-0.7); Eosinophils % (A) 8 %; HCT 41.7 % (39.0-53.0); HGB 14.1 gm/dL (13.0-17.5); Lymphocytes # (A) 1.6 k/uL (1.0-4.8); Lymphocytes % (A) 27 %; MCH 31.5 pg (25.0-35.0); MCHC 33.9 g/dL (31.0-37.0); MCV 93.1 fL (80.0-100.0); Mean Platelet Volume 7.6; Monocytes # (A) 0.4 k/uL (0-1.0); Monocytes % (A) 7 %; Neutrophils # (A) 3.1 k/uL (1.3-7.7); Neutrophils % (A) 55 %; Platelet Count 198 k/uL (150-450); RBC 4.48 m/uL (4.30-5.90); RDW 13.4 % (11.5-15.5); WBC 5.7 k/uL (3.8-10.6)
[2018-02-05 23:31] LABS: ALT 24 U/L (21-72); AST 21 U/L (17-59); Albumin 3.5 g/dL (3.5-5.0); Alkaline Phosphatase 95 U/L (38-126); Amylase 54 U/L (30-110); Anion Gap 4 mmol/L; Blood Urea Nitrogen 19 mg/dL (9-20); Calcium 8.9 mg/dL (8.4-10.2); Carbon Dioxide 26 mmol/L (22-30); Chloride 110 mmol/L (98-107); Glucose 95 mg/dL (74-99); Lipase 73 U/L (23-300); Potassium 4.7 mmol/L (3.5-5.1); Sodium 140 mmol/L (137-145); Total Bilirubin 0.3 mg/dL (0.2-1.3); Total Protein 6.1 g/dL (6.3-8.2)
--- NOTE | 2018-02-05 23:37 | ED ---
Abdominal Pain HPI - General Chief Complaint: Abdominal Pain Stated Complaint: NVD Time Seen by Provider: 02/05/18 21:59 Source: patient Mode of arrival: EMS Limitations: altered mental status - History of Present Illness Initial Comments: 72-year-old male patient presents to the emergency department today for complaints of lower abdominal pain. Patient states that the pain started about 4 days ago. States he was seen and evaluated for it here on Monday but was discharged home. States that the pain was gone on Monday however started again this morning. States that the pain is currently resolved. Patient states he has not had a bowel movement since being discharged from here. States he had 2 episodes of vomiting today. Denies any hematemesis. States that he does have a history of GERD and is concerned that this may be causing his symptoms. He denies any chest pain or shortness of breath. Denies any dysuria, hematuria, urinary frequency, urinary urgency. He denies any flank or back pain. Patient denies any recent rash, fever, chills, numbness, tingling, dizziness, weakness, hematuria, dysuria, urinary urgency, urinary frequency, headache, visual changes , or any other complaints. - Related Data Home Medications Medication Instructions Recorded Confirmed Docusate [Colace] 100 mg PO DAILY PRN 08/19/13 04/17/17 Lovastatin [Mevacor] 20 mg PO HS 08/19/13 04/17/17 Acetaminophen [Tylenol] 650 mg PO BID PRN 02/13/14 04/17/17 Allopurinol [Zyloprim] 100 mg PO DAILY 02/13/14 04/17/17 Loratadine [Claritin] 10 mg PO DAILY PRN 02/13/14 04/17/17 Burkett-3 Acid Ethyl Esters [Lovaza] 1 gm PO BID 02/13/14 04/17/17 Bismuth Subsalicylate 524 mg PO DAILY PRN 05/10/16 04/17/17 [Pepto-Bismol] Omeprazole [PriLOSEC] 40 mg PO DAILY 05/10/16 04/17/17 Ergocalciferol (Vitamin D2) 50,000 unit PO Q14D 04/17/17 04/17/17 [Vitamin D2] Propylene Glycol/Peg 400/Pf 1 drop BOTH EYES BID PRN 04/17/17 04/17/17 [Systane 0.3-0.4% Eye Drops] QUEtiapine [SEROquel] 50 mg PO HS 04/17/17 04/17/17 Simethicone 80 mg PO QID PRN 04/17/17 04/17/17 traZODone HCL 25 mg PO HS 04/17/17 04/17/17 Previous Rx's Medication Instructions Recorded Docusate Sodium [Dok] 100 mg PO BID #20 capsule 02/03/18 Sennosides [Senna] 8.6 mg PO DAILY #10 tablet 02/06/18 Allergies Allergy/AdvReac Type Severity Reaction Status Date / Time No Known Allergies Allergy Verified 02/05/18 21:20 Review of Systems ROS Statement: Those systems with pertinent positive or pertinent negative responses have been documented in the HPI. ROS Other: All systems not noted in ROS Statement are negative. Past Medical History Past Medical History: GERD/Reflux, Hyperlipidemia, Hypertension, Osteoarthritis (OA) Additional Past Medical History / Comment(s): Charmaine [place] at [facility] states "no seizure disorder", A&O x3-has public guardian lucrecia Madsen. ALERT AND ORIENTED. History of Any Multi-Drug Resistant Organisms: None Reported Past Surgical History: No Surgical Hx Reported Additional Past Surgical History / Comment(s): Rt cataract Mar 2015 Past Anesthesia/Blood Transfusion Reactions: Unable to Obtain Additional Past Anesthesia/Blood Transfusion Reaction / Comment(s): never has had general anesthesia, unknown family hx, unknown blood transfusion hx Past Psychological History: Depression, Schizophrenia Smoking Status: Current every day smoker Past Alcohol Use History: None Reported Past Drug Use History: None Reported - Past Family History Father History Unknown: Yes Mother History Unknown: Yes General Exam Limitations: altered mental status General appearance: alert, in no apparent distress, other (This is a well- developed, well-nourished elderly male patient in no acute distress. Vital signs upon presentation are temperature 98.1F, pulse 72, respirations 18, blood pressure 123/62, pulse ox 98% on room air.) Eye exam: Present: normal appearance, PERRL, EOMI. Absent: scleral icterus, conjunctival injection, periorbital swelling ENT exam: Present: normal exam, normal oropharynx, mucous membranes moist Respiratory exam: Present: normal lung sounds bilaterally. Absent: respiratory distress, wheezes, rales, rhonchi, stridor Cardiovascular Exam: Present: regular rate, normal rhythm, normal heart sounds. Absent: systolic murmur, diastolic murmur, rubs, gallop, clicks GI/Abdominal exam: Present: soft, normal bowel sounds. Absent: distended, tenderness, guarding, rebound, rigid Neurological exam: Present: alert, oriented X3, CN II-XII intact Psychiatric exam: Present: normal affect, normal mood Skin exam: Present: warm, dry, intact, normal color. Absent: rash Course Vital Signs 02/05/18 02/05/18 02/05/18 21:16 21:46 23:00 Temperature 98.1 F Pulse Rate 72 71 70 Respiratory 18 18 20 Rate Blood Pressure 123/62 113/70 118/68 O2 Sat by Pulse 98 99 99 Oximetry 02/05/18 02/06/18 23:24 01:16 Temperature 97.6 F Pulse Rate 64 Respiratory 18 19 Rate Blood Pressure 112/66 O2 Sat by Pulse 98 Oximetry Medical Decision Making - Medical Decision Making 72-year-old male patient presents to the emergency department today for complaints of lower abdominal pain. Physical examination revealed a soft nontender abdomen. Labs reviewed and were unremarkable. Vital signs stable. X -ray showed overall nonobstructive bowel gas pattern. Did discuss findings and results with the patient. He reports he has been pain-free since arrival to the emergency department. He will be discharged home today with prescription for senna. He is instructed to follow-up with his primary care physician for recheck in 1-2 days. Return parameters were discussed in detail. He verbalizes understanding and agrees with this plan. - Lab Data Result diagrams: 02/05/18 21:40 02/05/18 21:40 Lab Results 02/05/18 02/05/18 02/05/18 Range/Units 21:40 21:40 21:40 WBC 5.7 (3.8-10.6) k/uL RBC 4.48 (4.30-5.90) m/uL Hgb 14.1 (13.0-17.5) gm/dL Hct 41.7 (39.0-53.0) % MCV 93.1 (80.0-100.0) fL MCH 31.5 (25.0-35.0) pg MCHC 33.9 (31.0-37.0) g/dL RDW 13.4 (11.5-15.5) % Plt Count 198 (150-450) k/uL Neutrophils % 55 % Lymphocytes % 27 % Monocytes % 7 % Eosinophils % 8 % Basophils % 1 % Neutrophils # 3.1 (1.3-7.7) k/uL Lymphocytes # 1.6 (1.0-4.8) k/uL Monocytes # 0.4 (0-1.0) k/uL Eosinophils # 0.5 (0-0.7) k/uL Basophils # 0.0 (0-0.2) k/uL Sodium 140 (137-145) mmol/L Potassium 4.7 (3.5-5.1) mmol/L Chloride 110 H (98-107) mmol/L Carbon Dioxide 26 (22-30) mmol/L Anion Gap 4 mmol/L BUN 19 (9-20) mg/dL Creatinine 0.73 (0.66-1.25) mg/dL Est GFR (CKD-EPI)AfAm >90 (>60 ml/min/1.73 sqM) Est GFR (CKD-EPI)NonAf >90 (>60 ml/min/1.73 sqM) Glucose 95 (74-99) mg/dL Plasma Lactic Acid Breezy (0.7-2.0) mmol/L Calcium 8.9 (8.4-10.2) mg/dL Total Bilirubin 0.3 (0.2-1.3) mg/dL AST 21 (17-59) U/L ALT 24 (21-72) U/L Alkaline Phosphatase 95 (38-126) U/L Total Creatine Kinase 133 (55-170) U/L CK-MB (CK-2) 1.5 (0.0-2.4) ng/mL CK-MB (CK-2) Rel Index 1.1 Troponin I <0.012 (0.000-0.034) ng/mL Total Protein 6.1 L (6.3-8.2) g/dL Albumin 3.5 (3.5-5.0) g/dL Amylase 54 (30-110) U/L Lipase 73 (23-300) U/L Urine Color Urine Appearance (Clear) Urine pH (5.0-8.0) Ur Specific [place] (1.001-1.035) Urine Protein (Negative) Urine Glucose (UA) (Negative) Urine Ketones (Negative) Urine Blood (Negative) Urine Nitrite (Negative) Urine Bilirubin (Negative) Urine Urobilinogen (<2.0) mg/dL Ur Leukocyte Esterase (Negative) 02/05/18 02/05/18 Range/Units 21:40 23:55 WBC (3.8-10.6) k/uL RBC (4.30-5.90) m/uL Hgb (13.0-17.5) gm/dL Hct (39.0-53.0) % MCV (80.0-100.0) fL MCH (25.0-35.0) pg MCHC (31.0-37.0) g/dL RDW (11.5-15.5) % Plt Count (150-450) k/uL Neutrophils % % Lymphocytes % % Monocytes % % Eosinophils % % Basophils % % Neutrophils # (1.3-7.7) k/uL Lymphocytes # (1.0-4.8) k/uL Monocytes # (0-1.0) k/uL Eosinophils # (0-0.7) k/uL Basophils # (0-0.2) k/uL Sodium (137-145) mmol/L Potassium (3.5-5.1) mmol/L Chloride (98-107) mmol/L Carbon Dioxide (22-30) mmol/L Anion Gap mmol/L BUN (9-20) mg/dL Creatinine (0.66-1.25) mg/dL Est GFR (CKD-EPI)AfAm (>60 ml/min/1.73 sqM) Est GFR (CKD-EPI)NonAf (>60 ml/min/1.73 sqM) Glucose (74-99) mg/dL Plasma Lactic Acid Breezy 0.8 (0.7-2.0) mmol/L Calcium (8.4-10.2) mg/dL Total Bilirubin (0.2-1.3) mg/dL AST (17-59) U/L ALT (21-72) U/L Alkaline Phosphatase (38-126) U/L Total Creatine Kinase (55-170) U/L CK-MB (CK-2) (0.0-2.4) ng/mL CK-MB (CK-2) Rel Index Troponin I (0.000-0.034) ng/mL Total Protein (6.3-8.2) g/dL Albumin (3.5-5.0) g/dL Amylase (30-110) U/L Lipase (23-300) U/L Urine Color Yellow Urine Appearance Clear (Clear) Urine pH 6.0 (5.0-8.0) Ur Specific [place] 1.015 (1.001-1.035) Urine Protein Negative (Negative) Urine Glucose (UA) Negative (Negative) Urine Ketones Negative (Negative) Urine Blood Negative (Negative) Urine Nitrite Negative (Negative) Urine Bilirubin Negative (Negative) Urine Urobilinogen <2.0 (<2.0) mg/dL Ur Leukocyte Esterase Negative (Negative) - Radiology Data Radiology results: report reviewed, image reviewed To supine views of the abdomen are obtained. There is no sign of intestinal obstruction or pneumoperitoneum. Fecal pattern is normal. There are no pathologic calcifications. Lung bases are clear. Impression by Dr. Gee shows nonacute abdomen no change Disposition Clinical Impression: Abdominal pain Disposition: HOME SELF-CARE Condition: Good Instructions: Abdominal Pain (ED) Additional Instructions: Take medication as directed. Follow up with your primary care physician for recheck in 1-2 days. Return immediately for any new, worsening, or concerning symptoms. Prescriptions: Sennosides [Senna] 8.6 mg PO DAILY #10 tablet Is patient prescribed a controlled substance at d/c from ED?: No [facility] [[facility] - 1-2 days Time of Disposition: 01:07
[2018-02-05 23:40] LABS: Creatine Kinase 133 U/L (55-170)
[2018-02-05 23:51] LABS: Creatine Kinase MB 1.5 ng/mL (0.0-2.4); Troponin I <0.012 ng/mL (0.000-0.034)
[2018-02-06 00:02] LABS: Appearance,Urine Clear (Clear); Bilirubin,Urine Negative (Negative); Blood,Urine Negative (Negative); Color,Urine Yellow; Glucose,Urine (UA) Negative (Negative); Ketones,Urine Negative (Negative); Leukocyte Esterase,Urine Negative (Negative); Nitrite,Urine Negative (Negative); Protein,Urine Negative (Negative); Specific Gravity,Urine 1.015 (1.001-1.035); Urobilinogen,Urine <2.0 mg/dL (<2.0)
[2018-02-06] MEDS ORDERED: SENNOSIDES 8.6 MG TAB PO STA (01:05)
[2018-02-06 01:30] VITALS: BP 112/66; PULSE 64; RESP 19; TEMP 97.6
== END 2018-02-06 01:16 | disposition home or self-care (01) ==
LOC: EC 21:07
DX: R10.30 Lower abdominal pain, unspecified (principal); R11.2 Nausea with vomiting, unspecified; R19.7 Diarrhea, unspecified; R41.82 Altered mental status, unspecified; E78.5 Hyperlipidemia, unspecified; K21.9 Gastro-esophageal reflux disease without esophagitis; I10 Essential (primary) hypertension; F32.9 Major depressive disorder, single episode, unspecified; F20.9 Schizophrenia, unspecified; F17.200 Nicotine dependence, unspecified, uncomplicated; Z79.899 Other long term (current) drug therapy
CPT/HCPCS: 36415; 74018; 80053; 81003; 82150; 82550; 82553; 83605; 83690; 84484; 85025; 99284

== ENCOUNTER 2020-07-22 09:53 | Day surgery (SDC) | payer MEDICARE, OTHER ==
[2020-07-20 13:11] VITALS: BMI 22.8
[~2020-07-22 09:53] MED LIST changes: +LIDOCAINE 1% (10MG/ML) FOR IV START INTRADERMA PRN
[2020-07-22 10:44] VITALS: TEMP 97.2
[2020-07-22] MEDS ORDERED: PROPOFOL 10 MG/ML 20 ML VIAL IV ONE (11:31)
[2020-07-22] MEDS ORDERED: LIDOCAINE 1% INJ 10MG/ML (20 ML MDV) ONE (11:31)
--- NOTE | 2020-07-22 11:56 | P.PCN ---
Date of Procedure: 07/22/20 Procedure(s) Performed: Brief history: Patient is a pleasant 75-year-old white male scheduled for an elective upper endoscopy as well as colonoscopy as a part of evaluation of GERD and prior history of colon polyps Procedure performed: Esophagogastroduodenoscopy with biopsy Colonoscopy with snare polypectomy Preoperative diagnosis: GERD History of colon polyps Anesthesia: [facility] [place] Procedure: After informed consent was obtained from the patient was brought into the endoscopy unit and IV sedation was administered by anesthesia under continuous monitoring. Initially upper endoscopy was done. The Olympus GF 160 video endoscope was inserted inserted into the mouth and esophagus intubated without any difficulty and was gradually advanced into the stomach and duodenum and carefully examined. The bulb and second part of the duodenum appeared normal. The scope was then withdrawn into the stomach adequately insufflated with air and upon careful examination the antrum and body, cardia and fundus appeared normal. The scope was then withdrawn into the esophagus. The GE junction was located at 40 cm to the incisors. It appeared rirregular with no erythema erosions or ulcerations. There was a short segment of Canela's appearing mucosa extending 3-4 mm proximal to the GE junction was biopsied. Rest of the esophagus appeared normal. Patient tolerated the procedure well. At this time the patient continued to remain sedation. Initial digital rectal examination was normal. Olympus CF 160 video colonoscope was then inserted into the rectum and gradually advanced to the cecum without any difficulty. Careful examination was performed as the scope was gradually being withdrawn. The prep was excellent. The cecum, ascending colon, transverse colon, descending colon, appeared normal. The sigmoid colon there was a 1 cm broad-based polyp removed by snare polypectomy. Rest of the sigmoid colon and rectum appeared normal. Retroflexion was performed in the rectum and no lesions were noted. Patient tolerated the procedure well. Impression: 1. 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 Colonoscopy Revealed 1 cm sigmoid colon polyp status post polypectomy Recommendations: Findings of this examination were discussed with the patient as well as her family. He was advised to follow with the biopsy results. If the biopsy shows an adenoma he can have a repeat colonoscopy in 3-5 years
[2020-07-22 12:02] VITALS: RESP 16
[2020-07-22 12:13] VITALS: BP 113/72; PULSE 69
== END 2020-07-22 13:01 | disposition home or self-care (01) ==
LOC: ORWHC2ENDO 09:53
PROVIDERS: ATTEND Internal Medicine Gastroenterology
DX: Z12.11 Encounter for screening for malignant neoplasm of colon (principal); K20.0 Eosinophilic esophagitis; D12.5 Benign neoplasm of sigmoid colon; K21.00 Gastro-esophageal reflux disease with esophagitis, without bleeding; K22.70 Barrett's esophagus without dysplasia; Z86.010 Personal history of colon polyps; I10 Essential (primary) hypertension; E78.5 Hyperlipidemia, unspecified; F17.210 Nicotine dependence, cigarettes, uncomplicated; F32.9 Major depressive disorder, single episode, unspecified; F20.9 Schizophrenia, unspecified; M19.90 Unspecified osteoarthritis, unspecified site; R41.3 Other amnesia; K59.00 Constipation, unspecified; Z79.1 Long term (current) use of non-steroidal anti-inflammatories (NSAID); Z79.899 Other long term (current) drug therapy
CPT/HCPCS: 45385; 43239; J2001; J2704; 88305

== ENCOUNTER → 2020-08-13 | Outpatient (CLI) | payer MEDICARE, OTHER ==
[2020-08-13 19:54] LABS: Basophils # (A) 0.06 X 10*3/uL (0.00-0.10); Basophils % (A) 0.8 %; Eosinophils # (A) 0.57 X 10*3/uL (0.04-0.35); Eosinophils % (A) 7.5 %; HCT 46.2 % (39.6-50.0); HGB 15.3 g/dL (13.0-17.0); Lymphocytes # (A) 1.75 X 10*3/uL (0.90-5.00); MCH 31.4 pg (27.0-32.0); MCHC 33.1 g/dL (32.0-37.0); MCV 94.9 fL (80.0-97.0); Mean Platelet Volume 11.3 fL (9.5-12.2); Monocytes # (A) 0.74 X 10*3/uL (0.20-1.00); Monocytes % (A) 9.7 %; Neutrophils # (A) 4.46 X 10*3/uL (1.80-7.70); Neutrophils % (A) 58.7 %; Platelet Count 250 X 10*3/uL (140-440); RBC 4.87 X 10*6/uL (4.40-5.60); RDW 13.8 % (11.5-14.5)
[2020-08-14 02:19] LABS: Folate, Serum >24.0 ng/mL
== END | disposition home or self-care (01) ==
LOC: LABWHC1 12:12
PROVIDERS: ATTEND Ophthalmology
DX: H53.01 Deprivation amblyopia (principal)
CPT/HCPCS: 36415; 82607; 82746; 83921; 85025

== ENCOUNTER 2020-08-15 11:43 | Emergency (ER) | payer MEDICARE, OTHER ==
[2020-08-15 11:50] VITALS: RESP 18
[2020-08-15] MEDS ORDERED: ACETAMINOPHEN TAB 325 MG TAB PO STA (12:17)
--- NOTE | 2020-08-15 12:36 | ED ---
General Adult HPI - General Chief complaint: Extremity Injury, Upper Stated complaint: fall, R hand injury Time Seen by Provider: 08/15/20 12:02 Source: patient, Caregiver Mode of arrival: ambulatory Limitations: no limitations - History of Present Illness Initial comments: 75-year-old male presents to emergency room with a chief complaint right hand pain. He is presenting with a caregiver who states the patient tripped over a cord 3 days ago and injured his right hand. States there was some initial redness that has gradually progressed to ecchymosis mostly located to the right hand. Patient reports swelling in the region and tenderness to the touch. However, he still able to move all of his fingers. Denies any paresthesias. Reports slight limitation range of motion due to the pain. Pain alleviated with rest. Worse with movement. - Related Data Home Medications Medication Instructions Recorded Confirmed Docusate [Colace] 100 mg PO DAILY PRN 08/19/13 07/22/20 Lovastatin [Mevacor] 20 mg PO HS 08/19/13 07/22/20 Loratadine [Claritin] 10 mg PO DAILY PRN 02/13/14 07/22/20 [place]-3 Acid Ethyl Esters [Lovaza] 1 gm PO BID 02/13/14 07/22/20 allopurinoL [Zyloprim] 100 mg PO DAILY 02/13/14 07/22/20 Omeprazole [PriLOSEC] 40 mg PO DAILY 05/10/16 07/22/20 Propylene Glycol/Peg 400/Pf 1 drop BOTH EYES BID PRN 04/17/17 07/22/20 [Systane 0.3-0.4% Eye Drops] QUEtiapine [SEROquel] 50 mg PO HS 04/17/17 07/22/20 Ibuprofen 400 mg PO BID 07/20/20 07/22/20 QUEtiapine [SEROquel] 100 mg PO HS PRN 07/20/20 07/22/20 Allergies Allergy/AdvReac Type Severity Reaction Status Date / Time No Known Allergies Allergy Verified 08/15/20 11:45 Review of Systems ROS Statement: Those systems with pertinent positive or pertinent negative responses have been documented in the HPI. ROS Other: All systems not noted in ROS Statement are negative. Past Medical History Past Medical History: GERD/Reflux, Hyperlipidemia, Hypertension, Memory Impairment, Osteoarthritis (OA) Additional Past Medical History / Comment(s): gout,ambulatory. ALERT AND ORIENTED. 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 PT CANNOT READ History of Any Multi-Drug Resistant Organisms: None Reported Past Surgical History: Unable to Obtain Additional Past Surgical History / Comment(s): Rt cataract Mar 2015 Past Anesthesia/Blood Transfusion Reactions: Unable to Obtain Additional Past Anesthesia/Blood Transfusion Reaction / Comment(s): never has had general anesthesia, unknown family hx, unknown blood transfusion hx Past Psychological History: Depression, Schizophrenia Smoking Status: Current every day smoker Past Alcohol Use History: Occasional Past Drug Use History: None Reported - Past Family History Father History Unknown: Yes Mother History Unknown: Yes General Exam Limitations: no limitations General appearance: alert, in no apparent distress Head exam: Present: atraumatic, normocephalic, normal inspection Eye exam: Present: normal appearance, PERRL, EOMI Pupils: Present: normal accommodation ENT exam: Present: normal exam, normal oropharynx, mucous membranes moist Neck exam: Present: normal inspection, full ROM. Absent: tenderness, lymphadenopathy Respiratory exam: Present: normal lung sounds bilaterally. Absent: respiratory distress, wheezes, rales, rhonchi, stridor, chest wall tenderness, accessory muscle use Cardiovascular Exam: Present: regular rate, normal rhythm, normal heart sounds. Absent: systolic murmur Extremities exam: Present: tenderness (Tenderness at the injured hand.), normal capillary refill, other (Palpable ulnar and radial pulses bilaterally.). Absent: normal inspection (Swelling and ecchymosis noted on the right hand), full ROM, pedal edema, joint swelling, calf tenderness Back exam: Present: normal inspection, full ROM. Absent: tenderness, CVA tenderness (R), CVA tenderness (L) Neurological exam: Present: alert, oriented X3 Psychiatric exam: Present: normal affect, normal mood Skin exam: Present: warm, dry, intact, normal color Course Vital Signs 08/15/20 11:46 Temperature 97.7 F Pulse Rate 66 Respiratory 18 Rate Blood Pressure 127/79 O2 Sat by Pulse 97 Oximetry Procedures - Orthopedic Splinting/Casting Injury #1 Side: right Upper Extremity Injury Location: wrist Upper Extremity Immobilizer: volar splint, Meño wrap, synthetic pre-padded splint Medical Decision Making - Medical Decision Making 75-year-old male presents emergency Department with a chief complaint right hand pain. On physical examination, patient is neurovascularly intact with her swelling with limited range of motion in the hand and wrist. X-ray reveals an impacted intra-articular comminuted distal metaphyseal right radial fracture with associated soft tissue swelling. There is also an associated ulnar styloid fracture with minimal displacement. No dislocations are noted. Volar splint applied per recommendation of Dr. Villegas. Patient was discharged with Tylenol 3 and an outpatient orthopedic follow-up. Return parameters were discussed with patient and the caregiver who are understanding and agreeable. Case discussed with Dr. Villegas. Disposition Clinical Impression: Right wrist injury, Radial head fracture, closed, Fracture of ulnar styloid Disposition: HOME SELF-CARE Condition: Stable Instructions (If sedation given, give patient instructions): Wrist Fracture in Adults (ED) Additional Instructions: Follow-up with pheresis specialist. Return to emergency department if symptoms worsen. Is patient prescribed a controlled substance at d/c from ED?: No Referrals: None,Stated [Primary Care Provider] - 1-2 days Juan Villasenor MD [STAFF PHYSICIAN] - 1-2 days Time of Disposition: 13:22
--- NOTE | 2020-08-15 13:10 | XR ---
Right hand and right wrist HISTORY: Trauma and pain 3 views of the right hand, 4 views of the right wrist There is an impacted intra-articular comminuted distal metaphyseal right radial fracture, associated soft tissue swelling. There is an associated ulnar styloid fracture with minimal displacement. No brian dent dislocation. Arthropathy changes are noted incidentally within the right hand and wrist. IMPRESSION: Fractures described
[2020-08-15] MEDS ORDERED: ACET/COD 300 MG/30 MG STARTER PACK 6 TAB BTL PO STA (13:37)
[2020-08-15 13:55] VITALS: BP 145/78; PULSE 77; TEMP 98
== END 2020-08-15 13:56 | disposition home or self-care (01) ==
LOC: EC 11:43
DX: S52.571A Other intraarticular fracture of lower end of right radius, initial encounter for closed fracture (principal); S52.611A Displaced fracture of right ulna styloid process, initial encounter for closed fracture; F17.200 Nicotine dependence, unspecified, uncomplicated; I10 Essential (primary) hypertension; K21.9 Gastro-esophageal reflux disease without esophagitis; M10.9 Gout, unspecified; M19.90 Unspecified osteoarthritis, unspecified site; Z79.1 Long term (current) use of non-steroidal anti-inflammatories (NSAID); Z79.899 Other long term (current) drug therapy; W18.09XA Striking against other object with subsequent fall, initial encounter
CPT/HCPCS: 29125; 99283

== ENCOUNTER 2020-09-11 00:46 | Observation (INO) | payer MEDICARE, OTHER ==
[2020-09-11 01:04] VITALS: RESP 18; TEMP 98.3
[2020-09-11] MEDS ORDERED: MORPHINE SULFATE 2 MG/ML SYRINGE IVP STA (01:18)
[2020-09-11] MEDS ORDERED: SODIUM CHLORIDE 0.9% 500 ML 500 ML IV STA (01:18)
[2020-09-11] MEDS ORDERED: ONDANSETRON 4 MG/2 ML VIAL IVP STA (01:18)
--- NOTE | 2020-09-11 02:10 | ED ---
General Adult HPI - General Source: EMS Mode of arrival: EMS Limitations: no limitations <Beatris Moreno - Last Filed: 09/11/20 02:42> <Qamar Paul - Last Filed: 09/11/20 04:09> - General Chief complaint: Nausea/Vomiting/Diarrhea Stated complaint: ABD Pain Time Seen by Provider: 09/11/20 00:49 - History of Present Illness Initial comments: 75 year-old male patient presents to the emergency department for evaluation of abdominal pain, nausea, and vomiting. States symptoms started earlier today. Pat mona states he has vomited "14 times" today. States he cannot keep down any food or fluid. Reports small amount of diarrhea today. States he is unsure if he has been passing gas. He denies any fever or chills. States he has had some streaking blood in his vomiting. Denies black or bloody stool. Denies any previous abdominal surgery. States that he has had symptoms similar to this in the past he calls it his "stomach problem". He is somewhat of a poor historian, does have a legal guardian. (Beatris Moreno) - Related Data Home Medications Medication Instructions Recorded Confirmed Docusate [Colace] 100 mg PO DAILY PRN 08/19/13 07/22/20 Lovastatin [Mevacor] 20 mg PO HS 08/19/13 07/22/20 Loratadine [Claritin] 10 mg PO DAILY PRN 02/13/14 07/22/20 [place]-3 Acid Ethyl Esters [Lovaza] 1 gm PO BID 02/13/14 07/22/20 allopurinoL [Zyloprim] 100 mg PO DAILY 02/13/14 07/22/20 Omeprazole [PriLOSEC] 40 mg PO DAILY 05/10/16 07/22/20 Propylene Glycol/Peg 400/Pf 1 drop BOTH EYES BID PRN 04/17/17 07/22/20 [Systane 0.3-0.4% Eye Drops] QUEtiapine [SEROquel] 50 mg PO HS 04/17/17 07/22/20 Ibuprofen 400 mg PO BID 07/20/20 07/22/20 QUEtiapine [SEROquel] 100 mg PO HS PRN 07/20/20 07/22/20 Allergies Allergy/AdvReac Type Severity Reaction Status Date / Time No Known Allergies Allergy Verified 08/15/20 11:45 Review of Systems ROS Other: All systems not noted in ROS Statement are negative. <Beatris Moreno - Last Filed: 09/11/20 02:42> ROS Other: All systems not noted in ROS Statement are negative. <Qamar Paul Gemma - Last Filed: 09/11/20 04:09> ROS Statement: Those systems with pertinent positive or pertinent negative responses have been documented in the HPI. Past Medical History Past Medical History: GERD/Reflux, Hyperlipidemia, Hypertension, Memory Impairment, Osteoarthritis (OA) Additional Past Medical History / Comment(s): gout,ambulatory. ALERT AND ORIENTED. 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 History of Any Multi-Drug Resistant Organisms: None Reported Past Surgical History: Unable to Obtain Additional Past Surgical History / Comment(s): Rt cataract Mar 2015 Past Anesthesia/Blood Transfusion Reactions: Unable to Obtain Additional Past Anesthesia/Blood Transfusion Reaction / Comment(s): never has had general anesthesia, unknown family hx, unknown blood transfusion hx Past Psychological History: Depression, Schizophrenia Smoking Status: Current every day smoker Past Alcohol Use History: Occasional Past Drug Use History: None Reported - Past Family History Father History Unknown: Yes Mother History Unknown: Yes <Beatris Moreno - Last Filed: 09/11/20 02:42> General Exam Limitations: no limitations General appearance: alert, in no apparent distress, other (Physical well- developed, well-nourished elderly male patient in no acute distress. Vital signs upon presentation temperature 98.3F, pulse 77, respirations 18, blood pressure 133/94, pulse ox 93% on room air.) Eye exam: Present: normal appearance, PERRL, EOMI. Absent: scleral icterus, conjunctival injection, periorbital swelling ENT exam: Present: normal exam, normal oropharynx, mucous membranes moist Respiratory exam: Present: normal lung sounds bilaterally. Absent: respiratory distress, wheezes, rales, rhonchi, stridor Cardiovascular Exam: Present: regular rate, normal rhythm, normal heart sounds. Absent: systolic murmur, diastolic murmur, rubs, gallop, clicks GI/Abdominal exam: Present: soft, distended, tenderness (Generalized), normal bowel sounds. Absent: guarding, rebound, rigid Neurological exam: Present: alert, oriented X3, CN II-XII intact Psychiatric exam: Present: normal affect, normal mood Skin exam: Present: warm, dry, intact, normal color. Absent: rash <Beatris Moreno - Last Filed: 09/11/20 02:42> Course <Qamar Palu - Last Filed: 09/11/20 04:09> Vital Signs 09/11/20 09/11/20 00:57 02:59 Temperature 98.3 F Pulse Rate 77 72 Respiratory 18 18 Rate Blood Pressure 133/94 147/87 O2 Sat by Pulse 93 L 96 Oximetry - Reevaluation(s) Reevaluation #1: 09/11/20 04:09 Medical record is reviewed (Qamar Paul) Reevaluation #2: 09/11/20 04:09 A she does not feel significantly improved 09/11/20 04:09 Does not fill comfortable for discharge (Qamar Paul) EKG Findings - EKG Comments: EKG Findings:: EKG obtained at shows normal sinus rhythm with a ventricular rate of 69, ME interval 182, QRS duration 106, QT 398, QTC 426. No evidence of ST elevation or depression. <Beatris Moreno - Last Filed: 09/11/20 02:42> Medical Decision Making - Lab Data Result diagrams: 09/11/20 01:57 09/11/20 01:57 <Beatris Moreno - Last Filed: 09/11/20 02:42> - Lab Data Result diagrams: 09/11/20 01:57 09/11/20 01:57 <Qamar Paul - Last Filed: 09/11/20 04:09> - Medical Decision Making 75 year-old male patient presents for abdominal pain and vomiting that started earlier today. Physical exam did reveal abdominal distention, generalized tenderness, did have some vomiting in ED. Labs unremarkable. CT pending. Care h anded over to my attending Dr. Paul at 0245. (Beatris Moreno) 75 male persistent abdominal pain nausea vomiting. CT is negative labwork is otherwise negative the patient be admitted for symptomatic therapy (Qamar Paul) - Lab Data Lab Results 09/11/20 09/11/2021 Range/Units 01:57 01:57 01:57 WBC 7.2 (3.8-10.6) k/uL RBC 4.67 (4.30-5.90) m/uL Hgb 14.2 (13.0-17.5) gm/dL Hct 43.9 (39.0-53.0) % MCV 93.8 (80.0-100.0) fL MCH 30.4 (25.0-35.0) pg MCHC 32.3 (31.0-37.0) g/dL RDW 13.6 (11.5-15.5) % Plt Count 234 (150-450) k/uL MPV 7.7 Neutrophils % 63 % Lymphocytes % 22 % Monocytes % 8 % Eosinophils % 5 % Basophils % 1 % Neutrophils # 4.5 (1.3-7.7) k/uL Lymphocytes # 1.6 (1.0-4.8) k/uL Monocytes # 0.6 (0-1.0) k/uL Eosinophils # 0.4 (0-0.7) k/uL Basophils # 0.1 (0-0.2) k/uL Sodium 140 (137-145) mmol/L Potassium 4.2 (3.5-5.1) mmol/L Chloride 104 (98-107) mmol/L Carbon Dioxide 29 (22-30) mmol/L Anion Gap 7 mmol/L BUN 17 (9-20) mg/dL Creatinine 0.79 (0.66-1.25) mg/dL Est GFR (CKD-EPI)AfAm >90 (>60 ml/min/1.73 sqM) Est GFR (CKD-EPI)NonAf 88 (>60 ml/min/1.73 sqM) Glucose 133 H (74-99) mg/dL Plasma Lactic Acid Breezy (0.7-2.0) mmol/L Calcium 9.5 (8.4-10.2) mg/dL Total Bilirubin 0.2 (0.2-1.3) mg/dL AST 30 (17-59) U/L ALT 18 (4-49) U/L Alkaline Phosphatase 92 (38-126) U/L Troponin I (0.000-0.034) ng/mL Total Protein 6.6 (6.3-8.2) g/dL Albumin 4.1 (3.5-5.0) g/dL Lipase 43 (23-300) U/L Urine Color Light Yellow Urine Appearance Cloudy (Clear) Urine pH 8.0 (5.0-8.0) Ur Specific [place] 1.018 (1.001-1.035) Urine Protein Negative (Negative) Urine Glucose (UA) Negative (Negative) Urine Ketones Negative (Negative) Urine Blood Negative (Negative) Urine Nitrite Negative (Negative) Urine Bilirubin Negative (Negative) Urine Urobilinogen <2.0 (<2.0) mg/dL Ur Leukocyte Esterase Negative (Negative) Urine RBC 2 (0-5) /hpf Urine WBC <1 (0-5) /hpf Amorphous Sediment Few H (None) /hpf 09/11/20 09/11/20 Range/Units 01:57 01:57 WBC (3.8-10.6) k/uL RBC (4.30-5.90) m/uL Hgb (13.0-17.5) gm/dL Hct (39.0-53.0) % MCV (80.0-100.0) fL MCH (25.0-35.0) pg MCHC (31.0-37.0) g/dL RDW (11.5-15.5) % Plt Count (150-450) k/uL MPV Neutrophils % % Lymphocytes % % Monocytes % % Eosinophils % % Basophils % % Neutrophils # (1.3-7.7) k/uL Lymphocytes # (1.0-4.8) k/uL Monocytes # (0-1.0) k/uL Eosinophils # (0-0.7) k/uL Basophils # (0-0.2) k/uL Sodium (137-145) mmol/L Potassium (3.5-5.1) mmol/L Chloride (98-107) mmol/L Carbon Dioxide (22-30) mmol/L Anion Gap mmol/L BUN (9-20) mg/dL Creatinine (0.66-1.25) mg/dL Est GFR (CKD-EPI)AfAm (>60 ml/min/1.73 sqM) Est GFR (CKD-EPI)NonAf (>60 ml/min/1.73 sqM) Glucose (74-99) mg/dL Plasma Lactic Acid Breezy 0.7 (0.7-2.0) mmol/L Calcium (8.4-10.2) mg/dL Total Bilirubin (0.2-1.3) mg/dL AST (17-59) U/L ALT (4-49) U/L Alkaline Phosphatase (38-126) U/L Troponin I <0.012 (0.000-0.034) ng/mL Total Protein (6.3-8.2) g/dL Albumin (3.5-5.0) g/dL Lipase (23-300) U/L Urine Color Urine Appearance (Clear) Urine pH (5.0-8.0) Ur Specific [place] (1.001-1.035) Urine Protein (Negative) Urine Glucose (UA) (Negative) Urine Ketones (Negative) Urine Blood (Negative) Urine Nitrite (Negative) Urine Bilirubin (Negative) Urine Urobilinogen (<2.0) mg/dL Ur Leukocyte Esterase (Negative) Urine RBC (0-5) /hpf Urine WBC (0-5) /hpf Amorphous Sediment (None) /hpf Disposition <Beatris Moreno - Last Filed: 09/11/20 02:42> Is patient prescribed a controlled substance at d/c from ED?: No <Qamar Paul - Last Filed: 09/11/20 04:09> Clinical Impression: Dehydration, Gastroenteritis Disposition: ADMITTED IP TO THIS HOSP Condition: Good
[2020-09-11 02:21] LABS: Basophils # (A) 0.1 k/uL (0-0.2); Basophils % (A) 1 %; Eosinophils # (A) 0.4 k/uL (0-0.7); Eosinophils % (A) 5 %; HCT 43.9 % (39.0-53.0); HGB 14.2 gm/dL (13.0-17.5); Lymphocytes # (A) 1.6 k/uL (1.0-4.8); Lymphocytes % (A) 22 %; MCH 30.4 pg (25.0-35.0); MCHC 32.3 g/dL (31.0-37.0); MCV 93.8 fL (80.0-100.0); Mean Platelet Volume 7.7; Monocytes # (A) 0.6 k/uL (0-1.0); Monocytes % (A) 8 %; Neutrophils # (A) 4.5 k/uL (1.3-7.7); Neutrophils % (A) 63 %; Platelet Count 234 k/uL (150-450); RBC 4.67 m/uL (4.30-5.90); RDW 13.6 % (11.5-15.5); WBC 7.2 k/uL (3.8-10.6)
[2020-09-11 02:25] LABS: ALT 18 U/L (4-49); AST 30 U/L (17-59); African American GFR (CKD) >90 (>60 ml/min/1.73 sqM); Albumin 4.1 g/dL (3.5-5.0); Alkaline Phosphatase 92 U/L (38-126); Anion Gap 7 mmol/L; Blood Urea Nitrogen 17 mg/dL (9-20); Calcium 9.5 mg/dL (8.4-10.2); Carbon Dioxide 29 mmol/L (22-30); Chloride 104 mmol/L (98-107); Glucose 133 mg/dL (74-99); Lipase 43 U/L (23-300); Non-African American GFR(CKD) 88 (>60 ml/min/1.73 sqM); Potassium 4.2 mmol/L (3.5-5.1); Sodium 140 mmol/L (137-145); Total Bilirubin 0.2 mg/dL (0.2-1.3); Total Protein 6.6 g/dL (6.3-8.2)
--- NOTE | 2020-09-11 03:00 | CT ---
EXAMINATION TYPE: CT abdomen pelvis wo/w con DATE OF EXAM: 09/11/2020 COMPARISON: 02/03/2018 HISTORY: centralized abd pain with N&V&D. pt unable to sit through [address] DLP: 496.6 mGycm Automated exposure control for dose reduction was used. CONTRAST: Performed with IV Contrast, patient injected with 100 mL of Isovue 300. 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 There is no pleur al effusion. There is no pericardial effusion. Liver spleen stomach pancreas appear intact. The bile ducts are not dilated. Gallbladder appears intact. There is no adrenal mass. Kidneys show satisfactory contrast opacification. There is no hydronephrosi s. The ureters are not dilated. There is no retroperitoneal adenopathy. Abdominal aorta is atheromato us. Appendix is posterior and appears normal. The bladder distends smoothly. There are some prostatic calcifications. Prostate measures 4.3 cm. There is no inguinal hernia. There is no free fluid in the pelvis. There is no evidence of bladder mass. There is no mesenteric edema. There is no ascites or free air. There is no bowel obstruction. There a re some sigmoid diverticula. There is no evidence of diverticulitis. The lumbar vertebra have normal alignment. There is degenerative disc space narrowing throughout the lumbar spine. There is no compre ssion fracture. Posterior elements are intact. The bony pelvis is intact. Hip joints are intact. Ther e is some mild degenerative cyst formation in the acetabula. The delayed images show no evidence of r enal obstruction. There is atheromatous changes in the abdominal aorta. There is no aneurysm. IMPRESSION: No acute abnormality of the abdomen pelvis. Mild sigmoid diverticulosis. Normal appendix. No evidence of colitis. No adverse change compared to old exam.
[2020-09-11 03:01] VITALS: BP 147/87
[2020-09-11] MEDS ORDERED: NALOXONE 0.4 MG/ML 1 ML VIAL IV PRN (03:19)
[2020-09-11] MEDS ORDERED: MORPHINE SULFATE 4 MG/ML SYRINGE IV PRN (03:19)
[2020-09-11] MEDS ORDERED: ONDANSETRON 4 MG/2 ML VIAL IVP PRN (03:19)
[2020-09-11 03:22] LABS: Amorphous Sediment,Urine Few /hpf; Appearance,Urine Cloudy (Clear); Bilirubin,Urine Negative (Negative); Blood,Urine Negative (Negative); Color,Urine Light Yellow; Glucose,Urine (UA) Negative (Negative); Ketones,Urine Negative (Negative); Leukocyte Esterase,Urine Negative (Negative); Nitrite,Urine Negative (Negative); Protein,Urine Negative (Negative); RBC,Urine 2 /hpf (0-5); Specific Gravity,Urine 1.018 (1.001-1.035); Urobilinogen,Urine <2.0 mg/dL (<2.0); WBC,Urine <1 /hpf (0-5)
[2020-09-11] MEDS ORDERED: PANTOPRAZOLE 40 MG TABLET PO STA (04:14)
[2020-09-11] MEDS ORDERED: SODIUM CHLORIDE 0.9% 1,000 ML IV SCH (04:30)
--- NOTE | 2020-09-11 04:31 | P.HPIM ---
History of Present Illness H&P Date: 09/11/20 Chief Complaint: abdominal pain 75-year-old male with GERD, hypertension, hyperlipidemia, memory impairment Patient comes in with 1 day history of diffuse abdominal pain associated with nausea and repeated vomiting he claims that he had one at least 1 episodes of blood-streaked vomiting he's also had one episodes of diarrhea denies any melena or bloody bowel movement per rectum patient is mentally challenged and he is not clear if he tried any medications at home he doesn't know if he takes any painkillers at home that might precipitate peptic ulcer disease. He denies any recent travel or sick contact. Denies any fevers or chills. Denies any chest pain or trouble breathing. Otherwise history is limited due to patient mental status Looks like patient had some GI workup about a month ago, where he had EGD showing area suspicious for Canela's esophagitis however biopsy showed no intestinal metaplasia and only evidence of chronic reflux esophagitis Colonoscopy showed 1 cm tubular adenoma polyp with recommendations to follow up in 3-5 years Computed tomography scan of the abdomen showed no acute pathology Patient has a cast over the right forearm due to fracture happened about a month ago he is due for reevaluation next Monday Review of Systems Pertinent positives as noted in HPI. All other systems were reviewed and are negative Past Medical History Past Medical History: GERD/Reflux, Hyperlipidemia, Hypertension, Memory Impairment, Osteoarthritis (OA) Additional Past Medical History / Comment(s): gout History of Any Multi-Drug Resistant Organisms: None Reported Past Surgical History: Unable to Obtain Additional Past Surgical History / Comment(s): Rt cataract Mar 2015 Past Anesthesia/Blood Transfusion Reactions: Unable to Obtain Additional Past Anesthesia/Blood Transfusion Reaction / Comment(s): never has had general anesthesia, unknown family hx, unknown blood transfusion hx Past Psychological History: Depression, Schizophrenia Smoking Status: Current every day smoker Past Alcohol Use History: Occasional Past Drug Use History: None Reported - Past Family History Father History Unknown: Yes Mother History Unknown: Yes Medications and Allergies Home Medications Medication Instructions Recorded Confirmed Type Docusate [Colace] 100 mg PO DAILY PRN 08/19/13 07/22/20 History Lovastatin [Mevacor] 20 mg PO HS 08/19/13 07/22/20 History Loratadine [Claritin] 10 mg PO DAILY PRN 02/13/14 07/22/20 History [place]-3 Acid Ethyl Esters [Lovaza] 1 gm PO BID 02/13/14 07/22/20 History allopurinoL [Zyloprim] 100 mg PO DAILY 02/13/14 07/22/20 History Omeprazole [PriLOSEC] 40 mg PO DAILY 05/10/16 07/22/20 History Propylene Glycol/Peg 400/Pf 1 drop BOTH EYES BID PRN 04/17/17 07/22/20 History [Systane 0.3-0.4% Eye Drops] QUEtiapine [SEROquel] 50 mg PO HS 04/17/17 07/22/20 History Ibuprofen 400 mg PO BID 07/20/20 07/22/20 History QUEtiapine [SEROquel] 100 mg PO HS PRN 07/20/20 07/22/20 History Allergies Allergy/AdvReac Type Severity Reaction Status Date / Time No Known Allergies Allergy Verified 08/15/20 11:45 Physical Exam Vitals: Vital Signs Temp Pulse Resp BP Pulse Ox 09/11/20 02:59 72 18 147/87 96 09/11/20 00:57 98.3 F 77 18 133/94 93 L Intake and Output 09/10/20 09/10/20 09/11/20 14:59 22:59 06:59 Other: Weight 58.967 kg Constitutional: No acute distress, conversant, pleasant Eyes: Anicteric sclerae, moist conjunctiva, strabismus Pupils equal round reactive to light ENMT: NC/AT Oropharynx clear, no erythema, or exudates Neck: Supple, FROM, no masses, or JVD No carotid bruits No thyromegaly Lungs: Clear to auscultation Clear to percussion Normal respiratory effort, no accessory muscle use Cardiovascular: Heart regular in rate and rhythm, No murmurs, gallops, or rubs No peripheral edema Abdominal: Mild distention of the abdomen, diffuse tenderness to palpation with voluntary guarding, no rebound or rigidity Abdomen moving with respiration Normoactive bowel sounds No hepatomegaly, No splenomegaly No palpable mass No abdominal wall hernia noted Skin: Normal temperature, tone, texture, turgor No induration No subcutaneous nodules No rash, lesions No ulcers Extremities: Cast over the right forearm No digital cyanosis No clubbing Pedal pulses intact and symmetrical Radial pulses intact and symmetrical No calf tenderness Psychiatric: Alert and oriented to person only Neuro Muscles Strength 4/5 in all 4 extremities Sensation to light touch grossly present throughout Cranial nerves II-XII grossly intact No focal sensory deficits Lymphatics: no palpable cervical or supraclavicular , or inguinal lymph nodes Results CBC & Chem 7: 09/11/20 01:57 09/11/20 01:57 Labs: Abnormal Lab Results - Last 24 Hours (Table) 09/11/20 09/11/20 Range/Units 01:57 01:57 Glucose 133 H (74-99) mg/dL Amorphous Sediment Few H (None) /hpf Assessment and Plan Assessment: Intractable nausea and vomiting with abdominal pain CAT scan of the abdomen negative Blood work unremarkable Symptomatic control IV fluid hydration PPI with history of chronic reflux esophagitis Recently had EGD and colonoscopy as listed in HPI Chronic conditions Hypertension Hyperlipidemia GERD Verify home medications CODE STATUS: Full code DVT prophylaxis: Mechanical Discussed with: Patient, ER Anticipated length of stay < than [address]: home A total of 65 minutes was spent on the care of this complex patient more than 50% of the time was spent in counseling and care coordination.
[2020-09-11] MEDS: ONDANSETRON 4 MG ODT STARTER PACK 2 TAB BTL PO STA ×2 (07:24→10:41)
[2020-09-11] MEDS ORDERED: PANTOPRAZOLE 40 MG/10 ML VIAL IV SCH (09:00)
[2020-09-11 10:47] VITALS: PULSE 70
--- NOTE | 2020-09-11 11:31 | P.DS ---
Providers Date of admission: 09/11/20 03:19 Expected date of discharge: 09/11/20 Attending physician: Imani Hidalgo MD Primary care physician: Stated None Hospital Course: 75-year-old male with GERD, hypertension, hyperlipidemia, memory impairment Patient comes in with 1 day history of diffuse abdominal pain associated with nausea and repeated vomiting he claims that he had one at least 1 episodes of blood-streaked vomiting he's also had one episodes of diarrhea denies any melena or bloody bowel movement per rectum patient is mentally challenged and he is not clear if he tried any medications at home he doesn't know if he takes any painkillers at home that might precipitate peptic ulcer disease. He denies any recent travel or sick contact. Denies any fevers or chills. Denies any chest pain or trouble breathing. Otherwise history is limited due to patient mental status Looks like patient had some GI workup about a month ago, where he had EGD showing area suspicious for Canela's esophagitis however biopsy showed no intestinal metaplasia and only evidence of chronic reflux esophagitis Colonoscopy showed 1 cm tubular adenoma polyp with recommendations to follow up in 3-5 years Computed tomography scan of the abdomen showed no acute pathology Intractable nausea and vomiting with abdominal pain CAT scan of the abdomen negative for acute pathology and blood work was unremarkable. Patient was admitted for symptomatic control, but by the time of my evaluation, he reported complete resolution of nausea, vomiting, and abdominal pain. He had no tenderness on exam, and he could tolerate a diet with good appetite. He was discharged home with routine follow up with PCP and [facility] for fracture. Chronic conditions Hypertension Hyperlipidemia GERD No home medications were changed on discharge. Patient Condition at Discharge: Good Plan - Discharge Summary New Discharge Prescriptions: Continue Lovastatin [Mevacor] 20 mg PO HS Loratadine [Claritin] 10 mg PO DAILY PRN PRN Reason: Allergy Symptoms allopurinoL [Zyloprim] 100 mg PO DAILY Omeprazole [PriLOSEC] 40 mg PO DAILY QUEtiapine [SEROquel] 50 mg PO HS PRN PRN Reason: Insomnia QUEtiapine [SEROquel] 100 mg PO HS Montelukast [Singulair] 10 mg PO HS Docusate Sodium 250mg 250 mg PO BID Propylene Glycol/Peg 400 [Systane Ultra 0.4-0.3% Eye Drp] 1 drop BOTH EYES BID PRN PRN Reason: Dry Eye(S) Ibuprofen 400 mg PO BID PRN PRN Reason: Pain Simethicone 80 mg PO QID PRN PRN Reason: gas [place]-3 Fatty Acids [[place]-3] 1,000 mg PO BID Discharge Medication List Lovastatin [Mevacor] 20 mg PO HS 08/19/13 [History] Loratadine [Claritin] 10 mg PO DAILY PRN 02/13/14 [History] allopurinoL [Zyloprim] 100 mg PO DAILY 02/13/14 [History] Omeprazole [PriLOSEC] 40 mg PO DAILY 05/10/16 [History] QUEtiapine [SEROquel] 50 mg PO HS PRN 04/17/17 [History] Ibuprofen 400 mg PO BID PRN 07/20/20 [History] QUEtiapine [SEROquel] 100 mg PO HS 07/20/20 [History] Docusate Sodium 250mg 250 mg PO BID 09/11/20 [History] Montelukast [Singulair] 10 mg PO HS 09/11/20 [History] [place]-3 Fatty Acids [[place]-3] 1,000 mg PO BID 09/11/20 [History] Propylene Glycol/Peg 400 [Systane Ultra 0.4-0.3% Eye Drp] 1 drop BOTH EYES BID PRN 09/11/20 [History] Simethicone 80 mg PO QID PRN 09/11/20 [History] Follow up Appointment(s)/Referral(s): None,Stated [Primary Care Provider] - 1-2 days Patient Instructions/Handouts: Acute Nausea and Vomiting (ED) Discharge Disposition: HOME SELF-CARE
== END 2020-09-11 10:33 | disposition home or self-care (01) ==
LOC: EC 00:46 → 6NMEDSUR 03:19
PROVIDERS: ADMIT Internal Medicine; ATTEND Internal Medicine
DX: R11.2 Nausea with vomiting, unspecified (principal); R10.9 Unspecified abdominal pain; R19.7 Diarrhea, unspecified; Z20.822 Contact with and (suspected) exposure to COVID-19; K21.9 Gastro-esophageal reflux disease without esophagitis; I10 Essential (primary) hypertension; E78.5 Hyperlipidemia, unspecified; F17.200 Nicotine dependence, unspecified, uncomplicated; F32.9 Major depressive disorder, single episode, unspecified; F20.9 Schizophrenia, unspecified; Z98.41 Cataract extraction status, right eye; M10.9 Gout, unspecified; M19.90 Unspecified osteoarthritis, unspecified site; F79 Unspecified intellectual disabilities; Z79.899 Other long term (current) drug therapy
CPT/HCPCS: 96361; 96374; 96375; 99285; 36415; 93005; 80053; 83605; 83690; 84484; 85025; 81001; 87635; 74178; G0378; J2405; J2270; S0119; Q9967

== ENCOUNTER → 2020-11-25 | Outpatient (CLI) | payer MEDICARE, OTHER ==
[2020-11-25 19:40] LABS: HCT 42.7 % (39.6-50.0); HGB 14.3 g/dL (13.0-17.0); MCHC 33.5 g/dL (32.0-37.0); MCV 92.4 fL (80.0-97.0); Mean Platelet Volume 10.9 fL (9.5-12.2); Platelet Count 261 X 10*3/uL (140-440); RBC 4.62 X 10*6/uL (4.40-5.60); RDW 14.4 % (11.5-14.5); WBC 5.85 X 10*3/uL (4.50-10.00)
[2020-11-26 03:00] LABS: Folate, Serum >24.0 ng/mL
== END | disposition home or self-care (01) ==
LOC: LABWHC1 14:52
PROVIDERS: ATTEND Ophthalmology
DX: H46.2 Nutritional optic neuropathy (principal)
CPT/HCPCS: 36415; 82525; 82607; 82746; 85027; 86780

== ENCOUNTER 2021-08-19 11:40 | Emergency (ER) | payer MEDICARE, OTHER ==
[2021-08-19] MEDS ORDERED: ONDANSETRON 4 MG/2 ML VIAL IVP STA (12:23)
[2021-08-19] MEDS ORDERED: MORPHINE SULFATE 4 MG/ML SYRINGE IV STA (12:23)
[2021-08-19] MEDS ORDERED: diphenhydrAMINE 50 MG/ML 1 ML VIAL IVP STA (12:23)
[2021-08-19] MEDS ORDERED: SODIUM CHLORIDE 0.9% 1,000 ML IV STA (12:23)
[2021-08-19 12:45] LABS: Basophils # (A) 0.2 k/uL (0-0.2); Basophils % (A) 2 %; Eosinophils # (A) 0.8 k/uL (0-0.7); Eosinophils % (A) 13 %; HCT 46.4 % (39.0-53.0); HGB 14.6 gm/dL (13.0-17.5); Lymphocytes # (A) 1.5 k/uL (1.0-4.8); Lymphocytes % (A) 25 %; MCH 29.3 pg (25.0-35.0); MCHC 31.5 g/dL (31.0-37.0); MCV 93.1 fL (80.0-100.0); Mean Platelet Volume 8.3; Monocytes # (A) 0.4 k/uL (0-1.0); Monocytes % (A) 7 %; Neutrophils # (A) 3.1 k/uL (1.3-7.7); Neutrophils % (A) 51 %; Platelet Count 201 k/uL (150-450); RBC 4.98 m/uL (4.30-5.90); RDW 13.4 % (11.5-15.5); WBC 6.1 k/uL (3.8-10.6)
[2021-08-19 13:00] LABS: INR 0.9 (<1.2); Partial Thromboplastin Time 25.1 sec (22.0-30.0); Prothrombin Time 10.4 sec (9.0-12.0)
[2021-08-19 13:02] LABS: ALT 18 U/L (4-49); AST 23 U/L (17-59); African American GFR (CKD) >90 (>60 ml/min/1.73 sqM); Albumin 4.1 g/dL (3.5-5.0); Alkaline Phosphatase 80 U/L (38-126); Amylase 53 U/L (30-110); Anion Gap 5 mmol/L; Blood Urea Nitrogen 15 mg/dL (9-20); Calcium 8.9 mg/dL (8.4-10.2); Carbon Dioxide 24 mmol/L (22-30); Chloride 110 mmol/L (98-107); Glucose 101 mg/dL (74-99); Lipase 37 U/L (23-300); Non-African American GFR(CKD) 88 (>60 ml/min/1.73 sqM); Potassium 4.4 mmol/L (3.5-5.1); Sodium 139 mmol/L (137-145); Total Bilirubin 0.4 mg/dL (0.2-1.3); Total Protein 6.7 g/dL (6.3-8.2)
[2021-08-19 13:11] LABS: Appearance,Urine Clear (Clear); Bilirubin,Urine Negative (Negative); Blood,Urine Negative (Negative); Color,Urine Yellow; Glucose,Urine (UA) Negative (Negative); Ketones,Urine Negative (Negative); Leukocyte Esterase,Urine Negative (Negative); Nitrite,Urine Negative (Negative); PH, Urine 5.5 (5.0-8.0); Protein,Urine Negative (Negative); Specific Gravity,Urine 1.016 (1.001-1.035); Urobilinogen,Urine <2.0 mg/dL (<2.0)
[2021-08-19 14:05] VITALS: BP 127/80; PULSE 72; RESP 18; TEMP 97.2
--- NOTE | 2021-08-19 14:28 | ED ---
General Adult HPI - General Chief complaint: Nausea/Vomiting/Diarrhea Stated complaint: Vomiting Time Seen by Provider: 08/19/21 12:10 Source: patient, RN notes reviewed, old records reviewed Mode of arrival: ambulatory Limitations: no limitations - History of Present Illness Initial comments: Patient is a 76-year-old male with past medical history remarkable for GERD, acid reflux, hypertension who is a prior every day alcohol user but has since quit presents for vomiting for the last 2 days. Nurses mild epigastric discomfort as well. Denies any chest pain, shortness of breath. Prescription the pain as achy. Denies any urinary complaints. Denies any diarrhea. Denies constipation. Denies any sick contacts. Has no cough or fevers. Presents for further evaluation at this time. Last was seen here over a year ago.Patient's pain does not radiate. Endorses his alcohol episodes of emesis is nonbilious and nonbloody. - Related Data Home Medications Medication Instructions Recorded Confirmed Lovastatin [Mevacor] 20 mg PO HS 08/19/13 09/11/20 Loratadine [Claritin] 10 mg PO DAILY PRN 02/13/14 09/11/20 allopurinoL [Zyloprim] 100 mg PO DAILY 02/13/14 09/11/20 Omeprazole [PriLOSEC] 40 mg PO DAILY 05/10/16 09/11/20 QUEtiapine [SEROquel] 50 mg PO HS PRN 04/17/17 09/11/20 Ibuprofen 400 mg PO BID PRN 07/20/20 09/11/20 QUEtiapine [SEROquel] 100 mg PO HS 07/20/20 09/11/20 Docusate Sodium 250mg 250 mg PO BID 09/11/20 09/11/20 Montelukast [Singulair] 10 mg PO HS 09/11/20 09/11/20 [place]-3 Fatty Acids [[place]-3] 1,000 mg PO BID 09/11/20 09/11/20 Propylene Glycol/Peg 400 [Systane 1 drop BOTH EYES BID PRN 09/11/20 09/11/20 Ultra 0.4-0.3% Eye Drp] Simethicone [Simethicone Chew] 80 mg PO QID PRN 09/11/20 09/11/20 Previous Rx's Medication Instructions Recorded Famotidine [Pepcid] 20 mg PO DAILY 14 Days #14 tablet 08/19/21 Mag Hydrox/Al Hydrox/Simeth 30 ml PO BID PRN #400 ml 08/19/21 [Maalox] Ondansetron [Zofran ODT] 4 mg PO Q8HR PRN 3 Days #9 tab 08/19/21 Allergies Allergy/AdvReac Type Severity Reaction Status Date / Time No Known Allergies Allergy Verified 08/19/21 11:53 Review of Systems ROS Statement: Those systems with pertinent positive or pertinent negative responses have been documented in the HPI. Review of Systems: CONST: Denies fever EYES: Denies blurry vision ENT: Denies nasal congestion C/V: Denies Chest pain RESP: Denies shortness of breath GI: Endorses abdominal pain : Denies dysuria SKIN: Denies rash. MSK: Denies joint pain. NEURO: Denies headache ROS Other: All systems not noted in ROS Statement are negative. Past Medical History Past Medical History: GERD/Reflux, Hyperlipidemia, Hypertension, Memory Impairment, Osteoarthritis (OA) Additional Past Medical History / Comment(s): gout History of Any Multi-Drug Resistant Organisms: None Reported Past Surgical History: Unable to Obtain Additional Past Surgical History / Comment(s): Rt cataract Mar 2015 Past Anesthesia/Blood Transfusion Reactions: Unable to Obtain Additional Past Anesthesia/Blood Transfusion Reaction / Comment(s): never has had general anesthesia, unknown family hx, unknown blood transfusion hx Past Psychological History: Depression, Schizophrenia Smoking Status: Current every day smoker Past Alcohol Use History: Occasional Past Drug Use History: None Reported - Past Family History Father History Unknown: Yes Mother History Unknown: Yes General Exam - General Exam Comments Initial Comments: General: Appears in no acute distress. HEAD: Normal with no signs of head trauma. EYES: PERRLA, EOMI, conjunctiva normal, no discharge. ENT: Hearing grossly intact, normal oropharynx. RESPIRATORY: Clear breath sounds bilaterally. No wheezes, rales, or rhonchi. C/V: Regular rate and rhythm. S1 and S2 auscultated, no edema, peripheral pulses 2+ and intact throughout ABD: Abdomen is soft, non-distended. Mild tenderness to palpation in the epiga stric region. No guarding. No peritoneal signs. No rebound tenderness. No CVA tenderness to percussion. Relatively unremarkable exam. EXT: Normal range of motion, no obvious deformity SKIN: No rashes or lesions observed on exposed skin. NEURO: Alert and oriented 4. Limitations: no limitations Course Vital Signs 08/19/21 08/19/21 11:50 14:01 Temperature 97.9 F 97.2 F L Pulse Rate 78 72 Respiratory 20 18 Rate Blood Pressure 113/71 127/80 O2 Sat by Pulse 98 97 Oximetry Medical Decision Making - Medical Decision Making Based on the patient's presentation and physical exam, I'm concerned for possible intra-abdominal process for the patient. We will obtain a screening EKG in addition to abdominal laboratory studies as well as a CT abdomen and pelvis. He was in agreement this plan. He'll be sent likely treatment with 1 L fluid bolus as well as IV analgesia. EKG shows no signs of acute ischemia. Laboratory studies are unremarkable, inc luding a normal urine, negative COVID-19 flu swabs, and normal electrolytes. Patient's CT imaging shows gastritis, esophagitis. No other acute abnormalities. On reevaluation, patient is tolerating oral intake. He would like to try going home to manage his current symptoms. I believe this is reasonable with a relatively unremarkable workup except for acute esophagitis and gastritis which appears to be chronic. Strict return precautions were provided. I will provide the patient with a prescription for Maalox, ODT Zofran, famotidine. I instructed the patient to follow up with their PCP in the next 3 days. I provided contact information for follow up with [facility]. I explained that the patient should return to the emergency department if they experience any worsening symptoms. Strict return precautions were discussed with the patient. The patient expressed understanding of these instructions. I answered all questions that the patient had. The patient was discharged home in good condition with their prescriptions and follow up information. - Lab Data Result diagrams: 08/19/21 12:35 08/19/21 12:35 Lab Results 08/19/21 08/19/21 08/19/21 Range/Units 12:35 12:35 12:35 WBC 6.1 (3.8-10.6) k/uL RBC 4.98 (4.30-5.90) m/uL Hgb 14.6 (13.0-17.5) gm/dL Hct 46.4 (39.0-53.0) % MCV 93.1 (80.0-100.0) fL MCH 29.3 (25.0-35.0) pg MCHC 31.5 (31.0-37.0) g/dL RDW 13.4 (11.5-15.5) % Plt Count 201 (150-450) k/uL MPV 8.3 Neutrophils % 51 % Lymphocytes % 25 % Monocytes % 7 % Eosinophils % 13 % Basophils % 2 % Neutrophils # 3.1 (1.3-7.7) k/uL Lymphocytes # 1.5 (1.0-4.8) k/uL Monocytes # 0.4 (0-1.0) k/uL Eosinophils # 0.8 H (0-0.7) k/uL Basophils # 0.2 (0-0.2) k/uL PT (9.0-12.0) sec INR (<1.2) APTT (22.0-30.0) sec Sodium 139 (137-145) mmol/L Potassium 4.4 (3.5-5.1) mmol/L Chloride 110 H (98-107) mmol/L Carbon Dioxide 24 (22-30) mmol/L Anion Gap 5 mmol/L BUN 15 (9-20) mg/dL Creatinine 0.76 (0.66-1.25) mg/dL Est GFR (CKD-EPI)AfAm >90 (>60 ml/min/1.73 sqM) Est GFR (CKD-EPI)NonAf 88 (>60 ml/min/1.73 sqM) Glucose 101 H (74-99) mg/dL Calcium 8.9 (8.4-10.2) mg/dL Total Bilirubin 0.4 (0.2-1.3) mg/dL AST 23 (17-59) U/L ALT 18 (4-49) U/L Alkaline Phosphatase 80 (38-126) U/L Total Protein 6.7 (6.3-8.2) g/dL Albumin 4.1 (3.5-5.0) g/dL Amylase 53 (30-110) U/L Lipase 37 (23-300) U/L Urine Color Yellow Urine Appearance Clear (Clear) Urine pH 5.5 (5.0-8.0) Ur Specific [place] 1.016 (1.001-1.035) Urine Protein Negative (Negative) Urine Glucose (UA) Negative (Negative) Urine Ketones Negative (Negative) Urine Blood Negative (Negative) Urine Nitrite Negative (Negative) Urine Bilirubin Negative (Negative) Urine Urobilinogen <2.0 (<2.0) mg/dL Ur Leukocyte Esterase Negative (Negative) Coronavirus (PCR) (Not Detectd) Influenza Type A RNA (Not Detectd) Influenza Type B (PCR) (Not Detectd) 08/19/21 08/19/21 08/19/21 Range/Units 12:35 12:35 12:35 WBC (3.8-10.6) k/uL RBC (4.30-5.90) m/uL Hgb (13.0-17.5) gm/dL Hct (39.0-53.0) % MCV (80.0-100.0) fL MCH (25.0-35.0) pg MCHC (31.0-37.0) g/dL RDW (11.5-15.5) % Plt Count (150-450) k/uL MPV Neutrophils % % Lymphocytes % % Monocytes % % Eosinophils % % Basophils % % Neutrophils # (1.3-7.7) k/uL Lymphocytes # (1.0-4.8) k/uL Monocytes # (0-1.0) k/uL Eosinophils # (0-0.7) k/uL Basophils # (0-0.2) k/uL PT 10.4 (9.0-12.0) sec INR 0.9 (<1.2) APTT 25.1 (22.0-30.0) sec Sodium (137-145) mmol/L Potassium (3.5-5.1) mmol/L Chloride (98-107) mmol/L Carbon Dioxide (22-30) mmol/L Anion Gap mmol/L BUN (9-20) mg/dL Creatinine (0.66-1.25) mg/dL Est GFR (CKD-EPI)AfAm (>60 ml/min/1.73 sqM) Est GFR (CKD-EPI)NonAf (>60 ml/min/1.73 sqM) Glucose (74-99) mg/dL Calcium (8.4-10.2) mg/dL Total Bilirubin (0.2-1.3) mg/dL AST (17-59) U/L ALT (4-49) U/L Alkaline Phosphatase (38-126) U/L Total Protein (6.3-8.2) g/dL Albumin (3.5-5.0) g/dL Amylase (30-110) U/L Lipase (23-300) U/L Urine Color Urine Appearance (Clear) Urine pH (5.0-8.0) Ur Specific [place] (1.001-1.035) Urine Protein (Negative) Urine Glucose (UA) (Negative) Urine Ketones (Negative) Urine Blood (Negative) Urine Nitrite (Negative) Urine Bilirubin (Negative) Urine Urobilinogen (<2.0) mg/dL Ur Leukocyte Esterase (Negative) Coronavirus (PCR) Not Detected (Not Detectd) Influenza Type A RNA Not Detected (Not Detectd) Influenza Type B (PCR) Not Detected (Not Detectd) - EKG Data -: EKG Interpreted by Me EKG Comments: 12-lead Electrocardiogram Interpretation Note EKG was reviewed and interpreted by myself. 12-lead ECG performed at 1247 is interpreted by me as revealing normal sinus rhythm at a rate of 57 beats per minute. [place] is normal. MO interval is 200 ms, QRS duration is 100 ms, QTc is 398 ms.. There were no ST or T wave abnormalities to suggest myocardial ischemia or injury. R wave progression across the precordium was satisfactory. By my interpretation this EKG is non-diagnostic for acute ischemia. Disposition Clinical Impression: Gastritis Disposition: HOME SELF-CARE Condition: Good Instructions (If sedation given, give patient instructions): Gastritis (ED) Prescriptions: Mag Hydrox/Al Hydrox/Simeth [Maalox] 30 ml PO BID PRN #400 ml PRN Reason: Dyspepsia Famotidine [Pepcid] 20 mg PO DAILY 14 Days #14 tablet Ondansetron [Zofran ODT] 4 mg PO Q8HR PRN 3 Days #9 tab PRN Reason: Nausea Is patient prescribed a controlled substance at d/c from ED?: No [facility]-2 days Tricia Clay MD [STAFF PHYSICIAN] - 1-2 days Time of Disposition: 14:50
--- NOTE | 2021-08-19 14:46 | CT ---
EXAMINATION TYPE: CT abdomen pelvis w con DATE OF EXAM: 08/19/2021 COMPARISON: 09/11/2020 HISTORY: 76-year-old male Abdominal pain, non-localized, acute. TECHNIQUE: Contiguous axial scanning of the abdomen and pelvis following administration of 100 ml Iso joanne 300 IV contrast. Delayed images through the kidneys and coronal/sagittal reconstructions perform ed. CT DLP: 690.3 mGycm Automated exposure control for dose reduction was used. FINDINGS: Heart upper limits of normal in size without pericardial effusion. Underlying emphysema and prominent dependent atelectasis in the visualized lower lungs. There appears to be small hiatal hernia but some circumferential wall thickening of the distal esopha vernon. Possible fold thickening gastric fundus and proximal body, as well as the gastric pylorus. No focal liver lesion or biliary ductal dilatation. Portal venous system is patent. Gallbladder, adrenal glands, kidneys, spleen, and pancreas within normal. No dilated small bowel, free fluid, or free air. No mesenteric or retroperitoneal lymphadenopathy. Retroaortic left renal vein. Mild to moderate atherosclerotic calcifications infrarenal abdominal aorta and common iliac arteries. Mild stool burden. Mild diverticulosis mid sigmoid colon. No pericolonic inflammatory change. Bladder incompletely distended. Prostate gland 4.8 cm wide. There appears to be a right scrotal hydro chuckie which should be correlated clinically. Otherwise, no abnormal fluid collection in the pelvis or pelvic lymphadenopathy. Bones: Mild to moderate degenerative change of the hips. Mild degenerative change SI joints. 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 IMPRESSION: 1. SMALL HIATAL HERNIA BUT CIRCUMFERENTIAL WALL THICKENING OF THE DISTAL ESOPHAGUS. CORRELATE FOR POS SIBLE ESOPHAGITIS. 2. ADDITIONAL THICKENING OF THE GASTRIC FUNDUS AND PROXIMAL BODY MAY BE DUE TO NONDISTENTION. CORRELA TION FOR GASTRITIS. THERE SEEMS TO BE SOME THICKENING OF THE GASTRIC PYLORUS WELL WHICH MAY BE SEE N WITH PEPTIC ULCER DISEASE. AGAIN, CLINICALLY CORRELATE AND CONSIDER DIRECT VISUALIZATION. 3. MILD SIGMOID DIVERTICULOSIS WITHOUT ACUTE DIVERTICULITIS. 4. RIGHT SCROTAL HYDROCELE PARTIALLY SEEN. CLINICALLY CORRELATE.
== END 2021-08-19 15:20 | disposition home or self-care (01) ==
LOC: EC 11:40
DX: K29.70 Gastritis, unspecified, without bleeding (principal); F17.200 Nicotine dependence, unspecified, uncomplicated; M19.90 Unspecified osteoarthritis, unspecified site; K21.9 Gastro-esophageal reflux disease without esophagitis; E78.5 Hyperlipidemia, unspecified; M10.9 Gout, unspecified; Z79.899 Other long term (current) drug therapy; Z20.822 Contact with and (suspected) exposure to COVID-19
CPT/HCPCS: 36415; 80053; 82150; 83690; 85025; 85610; 85730; 81003; 87502; 87635; 74177; 99284; 96374; 96375; 96361; J2270; J1200; J2405; Q9967; 93005

== ENCOUNTER 2021-09-13 10:27 | Emergency (ER) | payer MEDICARE, OTHER ==
[2021-09-13 10:36] VITALS: RESP 18; TEMP 98.5
[2021-09-13] MEDS ORDERED: SODIUM CHLORIDE 0.9% 1,000 ML IV STA (10:43)
[2021-09-13] MEDS ORDERED: MORPHINE SULFATE 4 MG/ML SYRINGE IVP STA (10:44)
--- NOTE | 2021-09-13 11:06 | ED ---
Abdominal Pain HPI - General Chief Complaint: Abdominal Pain Stated Complaint: Abdominal Pain Time Seen by Provider: 09/13/21 10:39 Source: patient, EMS, RN notes reviewed Mode of arrival: EMS - History of Present Illness Initial Comments: This is a 76-year-old male who presents to the emergency department for abdominal pain. The pain is in the left lower quadrant and right lower quadrant and it began one week ago. He is scheduled to have a colonoscopy next month, but states "I couldn't wait that long". He believes that he had similar symptoms 4-5 years ago, however he cannot recall what the problem was or how he was treated. Denies any associated nausea, vomiting, diarrhea, or constipation. Denies any fevers, chills, sore throat, cough, dyspnea, chest pain, palpitations, nausea, vomiting, diarrhea, back pain, or headaches. MD Complaint: abdominal pain Onset/Timin -: week(s) Location: LLQ, RLQ Associated Symptoms: denies other symptoms - Related Data Home Medications Medication Instructions Recorded Confirmed Lovastatin [Mevacor] 20 mg PO HS 08/19/13 09/13/21 Loratadine [Claritin] 10 mg PO DAILY PRN 02/13/14 09/13/21 allopurinoL [Zyloprim] 100 mg PO DAILY 02/13/14 09/13/21 QUEtiapine [SEROquel] 100 mg PO HS 07/20/20 09/13/21 Docusate Sodium 250mg 250 mg PO DAILY 09/11/20 09/13/21 Montelukast [Singulair] 10 mg PO HS 09/11/20 09/13/21 Marston-3 Fatty Acids [Marston-3] 1,000 mg PO DAILY 09/11/20 09/13/21 Dicyclomine [Bentyl] 20 mg PO QID 09/13/21 09/13/21 Famotidine [Pepcid] 20 mg PO BID 09/13/21 09/13/21 Marston-3 Acid Ethyl Esters [Lovaza] 1 gm PO DAILY 09/13/21 09/13/21 polyethylene glycoL 3350 [Miralax] 17 gm PO DAILY PRN 09/13/21 09/13/21 Previous Rx's Medication Instructions Recorded Diclofenac Sodium [Voltaren] 75 mg PO BID PRN #20 tab 09/13/21 Allergies Allergy/AdvReac Type Severity Reaction Status Date / Time No Known Allergies Allergy Verified 09/13/21 11:50 Review of Systems ROS Statement: Those systems with pertinent positive or pertinent negative responses have been documented in the HPI. ROS Other: All systems not noted in ROS Statement are negative. Past Medical History Past Medical History: GERD/Reflux, Hyperlipidemia, Hypertension, Memory Impairment, Osteoarthritis (OA) Additional Past Medical History / Comment(s): gout History of Any Multi-Drug Resistant Organisms: None Reported Past Surgical History: Unable to Obtain Additional Past Surgical History / Comment(s): Rt cataract Mar 2015 Past Anesthesia/Blood Transfusion Reactions: Unable to Obtain Additional Past Anesthesia/Blood Transfusion Reaction / Comment(s): never has had general anesthesia, unknown family hx, unknown blood transfusion hx Past Psychological History: Depression, Schizophrenia Smoking Status: Current every day smoker Past Alcohol Use History: None Reported Past Drug Use History: None Reported - Past Family History Father History Unknown: Yes Mother History Unknown: Yes General Exam General appearance: alert, in no apparent distress Head exam: Present: atraumatic, normocephalic, normal inspection Respiratory exam: Present: normal lung sounds bilaterally. Absent: respiratory distress, wheezes, rales, rhonchi, stridor Cardiovascular Exam: Present: regular rate, normal rhythm, normal heart sounds. Absent: systolic murmur, diastolic murmur, rubs, gallop, clicks GI/Abdominal exam: Present: soft, tenderness (RLQ and LLQ), guarding, normal bowel sounds. Absent: distended, rebound, rigid Neurological exam: Present: alert, oriented X3, CN II-XII intact Psychiatric exam: Present: normal affect, normal mood Skin exam: Present: warm, dry, intact, normal color. Absent: rash Course Vital Signs 09/13/21 09/13/21 09/13/21 10:31 12:21 13:21 Temperature 98.5 F Pulse Rate 76 70 72 Respiratory 18 18 18 Rate Blood Pressure 116/74 121/69 116/62 O2 Sat by Pulse 96 95 95 Oximetry Medical Decision Making - Medical Decision Making This is a 76-year-old male who presents to the emergency department for bilateral lower quadrant pain. Lab work and CT of the abdomen and pelvis were all unremarkable. There is no clear etiology for the patient's symptoms at this time. This may be related to abdominal strain, especially as the patient had nausea and vomiting in the weeks prior, recurrent episodes of emesis may have contributed to this. His symptoms were controlled in the emergency department. Prescription for diclofenac sent to the pharmacy, advised taking this or an alternative anti-inflammatory along with Tylenol for the pain. Return precautions reviewed in depth, the patient is instructed to return to the emergency department with any new, worsening, or concerning symptoms. Patient verbalized understanding. This case was discussed in detail with the attending ED physician. Presentation, findings, and treatment plan discussed in detail as well. - Lab Data Result diagrams: 09/13/21 10:47 09/13/21 10:47 Lab Results 09/13/21 09/13/21 09/13/21 Range/Units 10:47 10:47 10:47 WBC 7.3 (3.8-10.6) k/uL RBC 4.85 (4.30-5.90) m/uL Hgb 15.0 (13.0-17.5) gm/dL Hct 45.6 (39.0-53.0) % MCV 94.0 (80.0-100.0) fL MCH 31.0 (25.0-35.0) pg MCHC 32.9 (31.0-37.0) g/dL RDW 13.8 (11.5-15.5) % Plt Count 202 (150-450) k/uL MPV 8.2 Neutrophils % 67 % Lymphocytes % 18 % Monocytes % 7 % Eosinophils % 5 % Basophils % 1 % Neutrophils # 4.9 (1.3-7.7) k/uL Lymphocytes # 1.3 (1.0-4.8) k/uL Monocytes # 0.5 (0-1.0) k/uL Eosinophils # 0.3 (0-0.7) k/uL Basophils # 0.1 (0-0.2) k/uL Sodium 139 (137-145) mmol/L Potassium 4.3 (3.5-5.1) mmol/L Chloride 106 (98-107) mmol/L Carbon Dioxide 24 (22-30) mmol/L Anion Gap 9 mmol/L BUN 17 (9-20) mg/dL Creatinine 0.80 (0.66-1.25) mg/dL Est GFR (CKD-EPI)AfAm >90 (>60 ml/min/1.73 sqM) Est GFR (CKD-EPI)NonAf 87 (>60 ml/min/1.73 sqM) Glucose 99 (74-99) mg/dL Calcium 9.2 (8.4-10.2) mg/dL Total Bilirubin 0.6 (0.2-1.3) mg/dL AST 29 (17-59) U/L ALT 20 (4-49) U/L Alkaline Phosphatase 87 (38-126) U/L Troponin I (0.000-0.034) ng/mL Total Protein 7.0 (6.3-8.2) g/dL Albumin 4.4 (3.5-5.0) g/dL Amylase 54 (30-110) U/L Lipase 25 (23-300) U/L Urine Color Yellow Urine Appearance Clear (Clear) Urine pH 6.0 (5.0-8.0) Ur Specific [place] 1.020 (1.001-1.035) Urine Protein Trace H (Negative) Urine Glucose (UA) Negative (Negative) Urine Ketones Negative (Negative) Urine Blood Negative (Negative) Urine Nitrite Negative (Negative) Urine Bilirubin Negative (Negative) Urine Urobilinogen <2.0 (<2.0) mg/dL Ur Leukocyte Esterase Negative (Negative) Coronavirus (PCR) (Not Detectd) Influenza Type A RNA (Not Detectd) Influenza Type B (PCR) (Not Detectd) 09/13/21 09/13/21 09/13/21 Range/Units 10:47 10:47 10:47 WBC (3.8-10.6) k/uL RBC (4.30-5.90) m/uL Hgb (13.0-17.5) gm/dL Hct (39.0-53.0) % MCV (80.0-100.0) fL MCH (25.0-35.0) pg MCHC (31.0-37.0) g/dL RDW (11.5-15.5) % Plt Count (150-450) k/uL MPV Neutrophils % % Lymphocytes % % Monocytes % % Eosinophils % % Basophils % % Neutrophils # (1.3-7.7) k/uL Lymphocytes # (1.0-4.8) k/uL Monocytes # (0-1.0) k/uL Eosinophils # (0-0.7) k/uL Basophils # (0-0.2) k/uL Sodium (137-145) mmol/L Potassium (3.5-5.1) mmol/L Chloride (98-107) mmol/L Carbon Dioxide (22-30) mmol/L Anion Gap mmol/L BUN (9-20) mg/dL Creatinine (0.66-1.25) mg/dL Est GFR (CKD-EPI)AfAm (>60 ml/min/1.73 sqM) Est GFR (CKD-EPI)NonAf (>60 ml/min/1.73 sqM) Glucose (74-99) mg/dL Calcium (8.4-10.2) mg/dL Total Bilirubin (0.2-1.3) mg/dL AST (17-59) U/L ALT (4-49) U/L Alkaline Phosphatase (38-126) U/L Troponin I <0.012 (0.000-0.034) ng/mL Total Protein (6.3-8.2) g/dL Albumin (3.5-5.0) g/dL Amylase (30-110) U/L Lipase (23-300) U/L Urine Color Urine Appearance (Clear) Urine pH (5.0-8.0) Ur Specific [place] (1.001-1.035) Urine Protein (Negative) Urine Glucose (UA) (Negative) Urine Ketones (Negative) Urine Blood (Negative) Urine Nitrite (Negative) Urine Bilirubin (Negative) Urine Urobilinogen (<2.0) mg/dL Ur Leukocyte Esterase (Negative) Coronavirus (PCR) Not Detected (Not Detectd) Influenza Type A RNA Not Detected (Not Detectd) Influenza Type B (PCR) Not Detected (Not Detectd) - EKG Data EKG Comments: Normal sinus rhythm. Ventricular rate 75 bpm, NV interval 166 ms, QRS duration 94 ms, QTc 412 ms. - Radiology Data Radiology results: report reviewed, image reviewed Disposition Clinical Impression: Lower abdominal pain Disposition: HOME SELF-CARE Instructions (If sedation given, give patient instructions): Abdominal Pain (ED) Additional Instructions: Return to the emergency department with any new, worsening, or concerning symptoms. Take the diclofenac up to twice daily as needed for pain. Avoid taking this with any other anti-inflammatories such as ibuprofen. Follow up with your sales representative printing as scheduled. Follow up with your primary care provider in 1-2 days. Prescriptions: Diclofenac Sodium [Voltaren] 75 mg PO BID PRN #20 tab PRN Reason: Pain Is patient prescribed a controlled substance at d/c from ED?: No Referrals: [facility] [Primary Care Provider] - 1-2 days
[2021-09-13 11:18] LABS: Appearance,Urine Clear (Clear); Basophils # (A) 0.1 k/uL (0-0.2); Basophils % (A) 1 %; Bilirubin,Urine Negative (Negative); Blood,Urine Negative (Negative); Color,Urine Yellow; Eosinophils # (A) 0.3 k/uL (0-0.7); Eosinophils % (A) 5 %; Glucose,Urine (UA) Negative (Negative); HCT 45.6 % (39.0-53.0); Ketones,Urine Negative (Negative); Leukocyte Esterase,Urine Negative (Negative); Lymphocytes # (A) 1.3 k/uL (1.0-4.8); Lymphocytes % (A) 18 %; MCHC 32.9 g/dL (31.0-37.0); Mean Platelet Volume 8.2; Monocytes # (A) 0.5 k/uL (0-1.0); Monocytes % (A) 7 %; Neutrophils # (A) 4.9 k/uL (1.3-7.7); Neutrophils % (A) 67 %; Nitrite,Urine Negative (Negative); Platelet Count 202 k/uL (150-450); Protein,Urine Trace (Negative); RBC 4.85 m/uL (4.30-5.90); RDW 13.8 % (11.5-15.5); Urobilinogen,Urine <2.0 mg/dL (<2.0); WBC 7.3 k/uL (3.8-10.6)
[2021-09-13 11:29] LABS: ALT 20 U/L (4-49); AST 29 U/L (17-59); African American GFR (CKD) >90 (>60 ml/min/1.73 sqM); Albumin 4.4 g/dL (3.5-5.0); Alkaline Phosphatase 87 U/L (38-126); Amylase 54 U/L (30-110); Anion Gap 9 mmol/L; Blood Urea Nitrogen 17 mg/dL (9-20); Calcium 9.2 mg/dL (8.4-10.2); Carbon Dioxide 24 mmol/L (22-30); Chloride 106 mmol/L (98-107); Glucose 99 mg/dL (74-99); Lipase 25 U/L (23-300); Non-African American GFR(CKD) 87 (>60 ml/min/1.73 sqM); Potassium 4.3 mmol/L (3.5-5.1); Sodium 139 mmol/L (137-145); Total Bilirubin 0.6 mg/dL (0.2-1.3)
--- NOTE | 2021-09-13 12:26 | CT ---
EXAMINATION TYPE: CT abdomen pelvis w con DATE OF EXAM: 09/13/2021 COMPARISON: CT dated 08/19/2021 HISTORY: lower abdominal pain CT DLP: 645.3 mGycm Automated exposure control for dose reduction was used. TECHNIQUE: Helical acquisition of images was performed from the lung bases through the pelvis. CONTRAST: Performed without Oral Contrast and with IV Contrast, patient injected with 100 mL of Isovue 300. FINDINGS: LUNG BASES: Bilateral basal pulmonary dependent densities. Questionable mild pulmonary vascular conge stion. Cardiomegaly. LIVER/GB: Stable 11 mm segment 7 hypodensity, otherwise unremarkable liver and gallbladder. PANCREAS: No significant abnormality is seen. SPLEEN: No significant abnormality is seen. ADRENALS: No significant abnormality is seen. KIDNEYS: No significant abnormality is seen. FREE AIR: No free air is visualized. RETROPERITONEAL ADENOPATHY: None visualized REPRODUCTIVE ORGANS: Bulky prostate. Unremarkable seminal vesicles. URINARY BLADDER: Not completely distended with slightly thickened wall. PELVIC ADENOPATHY: No pathologically enlarged pelvic lymph nodes. OSSEOUS STRUCTURES: Osteopenia. Degenerative changes of the lumbar spine. BOWEL: Unremarkable nondistended stomach, duodenum and small bowel. Fecal loading of the rectum and segments of the colon. Scattered uncomplicated colonic diverticulosis. No evidence of acute diverticu litis or acute colitis. Normal appendix. OTHER: Scattered arterial atherosclerotic calcifications. No sizable ascites. Suspected large right-s ided scrotal hydrocele, please correlate clinically. IMPRESSION: No definite acute abnormality or suspicious lesion seen in the abdomen or the pelvis. Incidental find ings as described above.
[2021-09-13] MEDS ORDERED: HYDROmorphone 0.5 MG/0.5 ML SYRINGE IVP STA (13:20)
[2021-09-13] MEDS ORDERED: KETOROLAC 15 MG/ML 1 ML VIAL IVP STA (13:20)
[2021-09-13] MEDS ORDERED: ACET/COD 300 MG/30 MG STARTER PACK 6 TAB BTL PO STA (13:21)
[2021-09-13 13:22] VITALS: BP 116/62; PULSE 72
== END 2021-09-13 13:54 | disposition home or self-care (01) ==
LOC: EC 10:27
DX: R10.31 Right lower quadrant pain (principal); R10.32 Left lower quadrant pain; Z20.822 Contact with and (suspected) exposure to COVID-19; I10 Essential (primary) hypertension; E78.5 Hyperlipidemia, unspecified; K21.9 Gastro-esophageal reflux disease without esophagitis; M19.90 Unspecified osteoarthritis, unspecified site; F32.A Depression, unspecified; F20.9 Schizophrenia, unspecified; M10.9 Gout, unspecified; F17.200 Nicotine dependence, unspecified, uncomplicated; Z79.899 Other long term (current) drug therapy
CPT/HCPCS: 36415; 93005; 80053; 82150; 83690; 84484; 85025; 81003; 87502; 87635; 74177; 99284; 96374; 96375 ×2; 96361; J2270; J1885; J1170; Q9967

== ENCOUNTER 2023-02-26 20:20 | Emergency (ER) | payer MEDICARE, OTHER ==
--- NOTE | 2023-02-26 21:03 | ED ---
General Adult HPI <Roman Deluca - Last Filed: 02/27/23 02:53> - General Source: patient, RN notes reviewed Mode of arrival: EMS Limitations: no limitations <Radha Benitez - Last Filed: 03/07/23 17:43> - General Chief complaint: Abdominal Pain Stated complaint: Abd pain Time Seen by Provider: 02/26/23 21:01 - History of Present Illness Initial comments: patient is a 77-year-old male presented ER with chief complaint of fluid on his left elbow and abdominal pain. Patient states he has had numerous stools with different textures. Patient is unsure about if he has had recent fevers or chills. (Radha Benitez) - Related Data Home Medications Medication Instructions Recorded Confirmed Lovastatin [Mevacor] 20 mg PO HS 08/19/13 09/13/21 Loratadine [Claritin] 10 mg PO DAILY PRN 02/13/14 09/13/21 allopurinoL [Zyloprim] 100 mg PO DAILY 02/13/14 09/13/21 QUEtiapine [SEROquel] 100 mg PO HS 07/20/20 09/13/21 Docusate Sodium 250mg 250 mg PO DAILY 09/11/20 09/13/21 Montelukast [Singulair] 10 mg PO HS 09/11/20 09/13/21 Fenton-3 Fatty Acids [Fenton-3] 1,000 mg PO DAILY 09/11/20 09/13/21 Dicyclomine [Bentyl] 20 mg PO QID 09/13/21 09/13/21 Famotidine [Pepcid] 20 mg PO BID 09/13/21 09/13/21 Fenton-3 Acid Ethyl Esters [Lovaza] 1 gm PO DAILY 09/13/21 09/13/21 polyethylene glycoL 3350 [Miralax] 17 gm PO DAILY PRN 09/13/21 09/13/21 Previous Rx's Medication Instructions Recorded Diclofenac Sodium [Voltaren] 75 mg PO BID PRN #20 tab 09/13/21 Famotidine [Pepcid] 20 mg PO BID #14 tablet 02/27/23 Allergies Allergy/AdvReac Type Severity Reaction Status Date / Time No Known Allergies Allergy Verified 02/26/23 20:43 Review of Systems ROS Other: All systems not noted in ROS Statement are negative. <Roman Deluca - Last Filed: 02/27/23 02:53> ROS Other: All systems not noted in ROS Statement are negative. <Radha Benitez - Last Filed: 03/07/23 17:43> ROS Statement: Those systems with pertinent positive or pertinent negative responses have been documented in the HPI. Past Medical History Past Medical History: GERD/Reflux, Hyperlipidemia, Hypertension, Memory Impairment, Osteoarthritis (OA) Additional Past Medical History / Comment(s): gout History of Any Multi-Drug Resistant Organisms: None Reported Past Surgical History: Unable to Obtain Additional Past Surgical History / Comment(s): Rt cataract Mar 2015 Past Anesthesia/Blood Transfusion Reactions: Unable to Obtain Additional Past Anesthesia/Blood Transfusion Reaction / Comment(s): never has had general anesthesia, unknown family hx, unknown blood transfusion hx Past Psychological History: Depression, Schizophrenia Smoking Status: Current every day smoker Past Alcohol Use History: None Reported Past Drug Use History: None Reported - Past Family History Father History Unknown: Yes Mother History Unknown: Yes <Radha Benitez - Last Filed: 03/07/23 17:43> General Exam Limitations: no limitations <Radha Benitez - Last Filed: 03/07/23 17:43> - General Exam Comments Initial Comments: Visual Physical Exam Vital signs reviewed General: Well-appearing, nontoxic, no acute distress. Head: Normocephalic, atraumatic Eyes: PERRLA, EOMI ENT: Airway patent Chest: Nonlabored breathing Skin: No visual rash, normal skin tone Neuro: Alert and oriented 3 Musculoskeletal: No gross abnormalities (Radha Benitez) Course Vital Signs 02/26/23 02/26/23 20:41 23:58 Temperature 96.8 F L 97.8 F Pulse Rate 75 62 Respiratory 20 16 Rate Blood Pressure 128/75 136/88 O2 Sat by Pulse 96 96 Oximetry Medical Decision Making - Lab Data Result diagrams: 02/26/23 21:25 02/26/23 21:25 <Roman Deluca - Last Filed: 02/27/23 02:53> - Lab Data Result diagrams: 02/26/23 21:25 02/26/23 21:25 <Radha Benitez - Last Filed: 03/07/23 17:43> - Medical Decision Making I performed the quick note portion of the exam. Electronically signed by Radha Benitez PA-C (Radha Benitez) - Lab Data Lab Results 02/26/23 02/26/23 02/26/23 Range/Units 21:25 21:25 21:25 WBC 5.9 (3.8-10.6) k/uL RBC 4.90 (4.30-5.90) m/uL Hgb 15.1 (13.0-17.5) gm/dL Hct 44.6 (39.0-53.0) % MCV 91.0 (80.0-100.0) fL MCH 30.8 (25.0-35.0) pg MCHC 33.8 (31.0-37.0) g/dL RDW 13.4 (11.5-15.5) % Plt Count 223 (150-450) k/uL MPV 7.9 Neutrophils % 56 % Lymphocytes % 29 % Monocytes % 6 % Eosinophils % 7 % Basophils % 1 % Neutrophils # 3.3 (1.3-7.7) k/uL Lymphocytes # 1.7 (1.0-4.8) k/uL Monocytes # 0.4 (0-1.0) k/uL Eosinophils # 0.4 (0-0.7) k/uL Basophils # 0.0 (0-0.2) k/uL Sodium 141 (137-145) mmol/L Potassium 4.4 (3.5-5.1) mmol/L Chloride 109 H (98-107) mmol/L Carbon Dioxide 23 (22-30) mmol/L Anion Gap 9 mmol/L BUN 24 H (9-20) mg/dL Creatinine 0.78 (0.66-1.25) mg/dL Est GFR (CKD-EPI)AfAm >90 (>60 ml/min/1.73 sqM) Est GFR (CKD-EPI)NonAf 87 (>60 ml/min/1.73 sqM) Glucose 92 (74-99) mg/dL Plasma Lactic Acid Breezy 0.7 (0.7-2.0) mmol/L Calcium 9.3 (8.4-10.2) mg/dL Total Bilirubin 0.7 (0.2-1.3) mg/dL AST 23 (17-59) U/L ALT 17 (4-49) U/L Alkaline Phosphatase 95 (38-126) U/L C-Reactive Protein (<1.0) mg/dL Total Protein 6.9 (6.3-8.2) g/dL Albumin 4.2 (3.5-5.0) g/dL Amylase 104 (30-110) U/L Lipase 249 (23-300) U/L Urine Color Urine Appearance (Clear) Urine pH (5.0-8.0) Ur Specific [place] (1.001-1.035) Urine Protein (Negative) Urine Glucose (UA) (Negative) Urine Ketones (Negative) Urine Blood (Negative) Urine Nitrite (Negative) Urine Bilirubin (Negative) Urine Urobilinogen (<2.0) mg/dL Ur Leukocyte Esterase (Negative) 02/26/23 02/27/23 Range/Units 21:25 00:21 WBC (3.8-10.6) k/uL RBC (4.30-5.90) m/uL Hgb (13.0-17.5) gm/dL Hct (39.0-53.0) % MCV (80.0-100.0) fL MCH (25.0-35.0) pg MCHC (31.0-37.0) g/dL RDW (11.5-15.5) % Plt Count (150-450) k/uL MPV Neutrophils % % Lymphocytes % % Monocytes % % Eosinophils % % Basophils % % Neutrophils # (1.3-7.7) k/uL Lymphocytes # (1.0-4.8) k/uL Monocytes # (0-1.0) k/uL Eosinophils # (0-0.7) k/uL Basophils # (0-0.2) k/uL Sodium (137-145) mmol/L Potassium (3.5-5.1) mmol/L Chloride (98-107) mmol/L Carbon Dioxide (22-30) mmol/L Anion Gap mmol/L BUN (9-20) mg/dL Creatinine (0.66-1.25) mg/dL Est GFR (CKD-EPI)AfAm (>60 ml/min/1.73 sqM) Est GFR (CKD-EPI)NonAf (>60 ml/min/1.73 sqM) Glucose (74-99) mg/dL Plasma Lactic Acid Breezy (0.7-2.0) mmol/L Calcium (8.4-10.2) mg/dL Total Bilirubin (0.2-1.3) mg/dL AST (17-59) U/L ALT (4-49) U/L Alkaline Phosphatase (38-126) U/L C-Reactive Protein 0.8 (<1.0) mg/dL Total Protein (6.3-8.2) g/dL Albumin (3.5-5.0) g/dL Amylase (30-110) U/L Lipase (23-300) U/L Urine Color Yellow Urine Appearance Clear (Clear) Urine pH 6.0 (5.0-8.0) Ur Specific [place] 1.015 (1.001-1.035) Urine Protein Negative (Negative) Urine Glucose (UA) Negative (Negative) Urine Ketones Negative (Negative) Urine Blood Negative (Negative) Urine Nitrite Negative (Negative) Urine Bilirubin Negative (Negative) Urine Urobilinogen <2.0 (<2.0) mg/dL Ur Leukocyte Esterase Negative (Negative) Disposition Is patient prescribed a controlled substance at d/c from ED?: No <Roman Deluca - Last Filed: 02/27/23 02:53> Time of Disposition: 17:43 <Radha Benitez - Last Filed: 03/07/23 17:43> Clinical Impression: Olecranon bursitis, Gastritis Disposition: HOME SELF-CARE Condition: Good Instructions (If sedation given, give patient instructions): Gastritis (ED), Elbow Bursitis (ED) Prescriptions: Famotidine [Pepcid] 20 mg PO BID #14 tablet Referrals: [facility] [Primary Care Provider] - 1-2 days Juan Villasenor MD [STAFF PHYSICIAN] - 1-2 days
[2023-02-26 21:52] LABS: Basophils % (A) 1 %; Eosinophils # (A) 0.4 k/uL (0-0.7); Eosinophils % (A) 7 %; HCT 44.6 % (39.0-53.0); HGB 15.1 gm/dL (13.0-17.5); Lymphocytes # (A) 1.7 k/uL (1.0-4.8); Lymphocytes % (A) 29 %; MCH 30.8 pg (25.0-35.0); MCHC 33.8 g/dL (31.0-37.0); Mean Platelet Volume 7.9; Monocytes # (A) 0.4 k/uL (0-1.0); Monocytes % (A) 6 %; Neutrophils # (A) 3.3 k/uL (1.3-7.7); Neutrophils % (A) 56 %; Platelet Count 223 k/uL (150-450); RDW 13.4 % (11.5-15.5); WBC 5.9 k/uL (3.8-10.6)
[2023-02-26 22:07] LABS: ALT 17 U/L (4-49); AST 23 U/L (17-59); African American GFR (CKD) >90 (>60 ml/min/1.73 sqM); Albumin 4.2 g/dL (3.5-5.0); Alkaline Phosphatase 95 U/L (38-126); Amylase 104 U/L (30-110); Anion Gap 9 mmol/L; Blood Urea Nitrogen 24 mg/dL (9-20); Calcium 9.3 mg/dL (8.4-10.2); Carbon Dioxide 23 mmol/L (22-30); Chloride 109 mmol/L (98-107); Glucose 92 mg/dL (74-99); Lipase 249 U/L (23-300); Non-African American GFR(CKD) 87 (>60 ml/min/1.73 sqM); Potassium 4.4 mmol/L (3.5-5.1); Sodium 141 mmol/L (137-145); Total Bilirubin 0.7 mg/dL (0.2-1.3); Total Protein 6.9 g/dL (6.3-8.2)
[2023-02-27 00:31] LABS: Color,Urine Yellow
[2023-02-27 00:32] LABS: Appearance,Urine Clear (Clear); Bilirubin,Urine Negative (Negative); Blood,Urine Negative (Negative); Glucose,Urine (UA) Negative (Negative); Ketones,Urine Negative (Negative); Leukocyte Esterase,Urine Negative (Negative); Nitrite,Urine Negative (Negative); Protein,Urine Negative (Negative); Specific Gravity,Urine 1.015 (1.001-1.035); Urobilinogen,Urine <2.0 mg/dL (<2.0)
[2023-02-27 00:34] VITALS: BP 136/88; PULSE 62; RESP 16; TEMP 97.8
[2023-02-27] MEDS ORDERED: MAG HYDROX/AL HYDROX/SIMETH 30 ML, HYOSCYAMINE ELIXIR 10 ML, LIDOCAINE 2% GLYDO JELLY 1... PO STA ×3 (02:56)
== END 2023-02-27 03:27 | disposition home or self-care (01) ==
LOC: EC 20:20
DX: M70.22 Olecranon bursitis, left elbow (principal); K29.70 Gastritis, unspecified, without bleeding; K21.9 Gastro-esophageal reflux disease without esophagitis; E78.5 Hyperlipidemia, unspecified; I10 Essential (primary) hypertension; M19.90 Unspecified osteoarthritis, unspecified site; F32.A Depression, unspecified; F17.200 Nicotine dependence, unspecified, uncomplicated; Z79.899 Other long term (current) drug therapy
CPT/HCPCS: 36415; 80053; 81003; 82150; 83605; 83690; 85025; 86140; 99284

== ENCOUNTER → 2023-05-04 | Outpatient (CLI) | payer MEDICARE, OTHER ==
--- NOTE | 2023-05-05 13:04 | XR ---
EXAMINATION TYPE: XR ankle complete 3 views RT, XR foot complete 3 views RT DATE OF EXAM: 05/04/2023 COMPARISON: NONE HISTORY: 78-year-old male M25.571 PAIN IN RIGHT ANKLE AND JOINTS OF RIGHT FO. Worsening right foot pa in for 2 days, callus along the medial side near the ball of foot. FINDINGS: Ankle: A small osteochondral defect measuring 4 mm along the medial talar dome. Mild degenerative spurring i s present at the tibiotalar joint and ankle mortise is congruent with preservation of the distal tibi ofibular overlap. Minimal ossification distal Achilles tendon suggesting chronic Achilles tendinopath y. No acute fracture, subluxation, dislocation. Foot: Moderate degenerative change first MTP joint with bunion formation. Additional degenerative change at the first metatarsal sesamoid joint. Hammertoes are present. Os peroneum. Suspect old healed fractur e deformity fifth metatarsal shaft. There appears to be 7 mm long retained needle or wire fragment al giancarlo the plantar soft tissues of the second toe and possible punctate retained foreign body material p lantar lateral soft tissues of the mid to hindfoot. No acute fracture, subluxation or dislocation see n. IMPRESSION: Ankle: 1. Mild degenerative change at the tibiotalar joint. Possible small 4 mm osteochondral defect of the medial talar dome. 2. Mild chronic insertional Achilles tendinopathy. 3. No acute osseous abnormality seen. Foot: 4. Moderate first MTP joint OA with bunion. 5. A 7 mm long retained needle or wire fragment along the plantar soft tissues of the second toe. 6. Possible additional punctate retained foreign body material plantolateral soft tissues of the mid to hindfoot. 7. No acute osseous abnormality seen.
== END | disposition home or self-care (01) ==
LOC: RADXRMAIN 16:48
PROVIDERS: ATTEND Nurse Practitioner
DX: M19.071 Primary osteoarthritis, right ankle and foot (principal); M76.61 Achilles tendinitis, right leg; Z18.89 Other specified retained foreign body fragments

== ENCOUNTER 2023-11-18 04:21 | Emergency (ER) | payer MEDICARE, OTHER ==
[2023-11-18] MEDS: HYDROcodone/APAP 5-325MG 1 EACH TAB PO STA (05:03)
[2023-11-18] MEDS: IBUPROFEN 600 MG TAB PO STA (05:03)
--- NOTE | 2023-11-18 05:07 | XR ---
EXAMINATION TYPE: XR elbow complete LT DATE OF EXAM: 11/18/2023 CLINICAL HISTORY: Fall injury TECHNIQUE: Frontal, lateral and oblique images of the left elbow are obtained. COMPARISON: None FINDINGS: There is no acute fracture/dislocation evident in the left elbow. No abnormal fat pad sig ns are seen. Mild to moderate spurring is present. The overlying soft tissue appears unremarkable. IMPRESSION: There is no acute fracture or dislocation in the left elbow.
[2023-11-18 06:25] LABS: Basophils % (A) 0 %; Eosinophils # (A) 0.3 k/uL (0-0.7); Eosinophils % (A) 4 %; HGB 13.3 gm/dL (13.0-17.5); Lymphocytes # (A) 0.8 k/uL (1.0-4.8); Lymphocytes % (A) 10 %; MCH 30.7 pg (25.0-35.0); MCHC 33.2 g/dL (31.0-37.0); MCV 92.6 fL (80.0-100.0); Mean Platelet Volume 7.8; Monocytes # (A) 0.7 k/uL (0-1.0); Monocytes % (A) 9 %; Neutrophils # (A) 6.1 k/uL (1.3-7.7); Neutrophils % (A) 76 %; Platelet Count 184 k/uL (150-450); RBC 4.32 m/uL (4.30-5.90); RDW 14.2 % (11.5-15.5); WBC 8.1 k/uL (3.8-10.6)
[2023-11-18 06:47] VITALS: PULSE 71; RESP 18
[2023-11-18 07:23] LABS: Sodium 136 mmol/L (137-145)
--- NOTE | 2023-11-18 07:25 | ED ---
Fall HPI - General Chief Complaint: Fall Stated Complaint: Elbow pain Time Seen by Provider: 11/18/23 04:35 Source: patient Mode of arrival: EMS - History of Present Illness Initial Comments: This patient is 78-year-old man who is brought to have evaluation of left arm after having had a ground-level fall. Complaint: fall Onset/Timin -: days(s) Fall From: standing Place Fall Occurred: home Loss of Consciousness: none Prolonged Down Time?: no Symptoms Prior to Fall: none Location - Extremities: Left: Elbow Severity: moderate Quality: aching Context: tripped/slipped Associated Symptoms: denies - Related Data Home Medications Medication Instructions Recorded Confirmed Lovastatin [Mevacor] 20 mg PO HS 08/19/13 09/13/21 Loratadine [Claritin] 10 mg PO DAILY PRN 02/13/14 09/13/21 allopurinoL [Zyloprim] 100 mg PO DAILY 02/13/14 09/13/21 QUEtiapine [SEROquel] 100 mg PO HS 07/20/20 09/13/21 Docusate Sodium 250mg 250 mg PO DAILY 09/11/20 09/13/21 Montelukast [Singulair] 10 mg PO HS 09/11/20 09/13/21 [place]-3 Fatty Acids [[place]-3] 1,000 mg PO DAILY 09/11/20 09/13/21 Dicyclomine [Bentyl] 20 mg PO QID 09/13/21 09/13/21 Famotidine [Pepcid] 20 mg PO BID 09/13/21 09/13/21 [place]-3 Acid Ethyl Esters [Lovaza] 1 gm PO DAILY 09/13/21 09/13/21 polyethylene glycoL 3350 [Miralax] 17 gm PO DAILY PRN 09/13/21 09/13/21 Previous Rx's Medication Instructions Recorded Diclofenac Sodium [Voltaren] 75 mg PO BID PRN #20 tab 09/13/21 Famotidine [Pepcid] 20 mg PO BID #14 tablet 02/27/23 Ibuprofen [Motrin] 600 mg PO Q8HR PRN #20 tab 11/18/23 Allergies Allergy/AdvReac Type Severity Reaction Status Date / Time No Known Allergies Allergy Verified 11/18/23 04:32 Review of Systems ROS Statement: Those systems with pertinent positive or pertinent negative responses have been documented in the HPI. ROS Other: All systems not noted in ROS Statement are negative. Constitutional: Denies: fever, chills, weakness Respiratory: Denies: dyspnea Cardiovascular: Denies: chest pain Gastrointestinal: Denies: abdominal pain Musculoskeletal: Reports: arthralgia. Denies: back pain Skin: Denies: rash Neurological: Denies: headache, weakness, numbness Past Medical History Past Medical History: GERD/Reflux, Hyperlipidemia, Hypertension, Memory Impairment, Osteoarthritis (OA) Additional Past Medical History / Comment(s): gout History of Any Multi-Drug Resistant Organisms: None Reported Past Surgical History: Unable to Obtain Additional Past Surgical History / Comment(s): Rt cataract Mar 2015 Past Anesthesia/Blood Transfusion Reactions: Unable to Obtain Additional Past Anesthesia/Blood Transfusion Reaction / Comment(s): never has had general anesthesia, unknown family hx, unknown blood transfusion hx Past Psychological History: Depression, Schizophrenia Smoking Status: Current every day smoker Past Alcohol Use History: None Reported Past Drug Use History: None Reported - Past Family History Father History Unknown: Yes Mother History Unknown: Yes General Exam Limitations: no limitations General appearance: alert, in no apparent distress Head exam: Present: atraumatic, normocephalic Eye exam: Present: normal appearance. Absent: scleral icterus, conjunctival injection Respiratory exam: Present: normal lung sounds bilaterally. Absent: respiratory distress, wheezes, rales, rhonchi, stridor, accessory muscle use Cardiovascular Exam: Present: regular rate, normal rhythm, normal heart sounds. Absent: systolic murmur, diastolic murmur, rubs, gallop GI/Abdominal exam: Present: soft. Absent: distended, tenderness, guarding Left Shoulder Exam: Present: normal inspection Upper Arm exam: Present: normal inspection Elbow exam: Present: full ROM, tenderness, swelling, ecchymosis. Absent: laceration, deformity, crepitus, dislocation, erythema, effusion, pain w/ pronation/supination, tenderness over radial head Forearm Wrist exam: Present: normal inspection, full ROM. Absent: tenderness, swelling Hand Wrist exam: Present: normal inspection, full ROM. Absent: tenderness, swel ling Back exam: Absent: vertebral tenderness Neurological exam: Present: alert. Absent: motor sensory deficit Course Vital Signs 11/18/23 11/18/23 11/18/23 04:26 06:39 08:49 Temperature 98 F 97.9 F Pulse Rate 87 71 71 Respiratory 17 18 18 Rate Blood Pressure 122/70 107/62 122/79 O2 Sat by Pulse 97 95 97 Oximetry Medical Decision Making - Medical Decision Making The patient had x-ray of the extremity that I interpreted as negative for acute fracture or dislocation. Was pt. sent in by a medical professional or institution (, [facility], PEDIATRIC ASSOCIATE, urgent care, hospital, or [facility]...) When possible be specific @ -[No] Did you speak to anyone other than the patient for history (EMS, parent, family, police, friend...)? What history was obtained from this source @ -[No] Did you review nursing and triage notes (agree or disagree)? Why? @ -[I reviewed and agree with nursing and triage notes] Were old charts reviewed (outside hosp., previous admission, EMS record, old EKG, old radiological studies, urgent care reports/EKG's, [facility] records)? Report findings @ -[No old charts were reviewed] Differential Diagnosis (chest pain, altered mental status, abdominal pain women, abdominal pain men, vaginal bleeding, weakness, fever, dyspnea, syncope, headache, dizziness, GI bleed, back pain, seizure, CVA, palpatations, mental health, musculoskeletal)? @ -[Differential Musculoskeletal Muscular strain, contusion, ligament sprain, fracture, arthritis, septic arthritis, bursitis, cellulitis, muscle spasm, nerve compression, DVT, arterial occlusion, herpes zoster, electrolyte abnormality, tumor.... This is not meant to be in all inclusive list EKG interpreted by me (3pts min.). @ -[ X-rays interpreted by me (1pt min.). @ -[I interpreted as above CT interpreted by me (1pt min.). @ -[None done] U/S interpreted by me (1pt. min.). @ -[None done] What testing was considered but not performed or refused? (CT, X-rays, U/S, labs)? Why? @ -[None] What meds were considered but not given or refused? Why? @ -[None] Did you discuss the management of the patient with other professionals (professionals i.e. , [facility], PEDIATRIC ASSOCIATE, lab, RT, psych nurse, social science analyst, analytics senior manager, teacher, business liaison officer, case management social worker)? Give summary @ -[No] Was smoking cessation discussed for >3mins.? @ -[No] Was critical care preformed (if so, how long)? @ -[No] Were there social determinants of health that impacted care today? How? (Homelessness, low income, unemployed, alcoholism, drug addiction, transportation, low edu. Level, literacy, decrease access to med. care, halfway, rehab)? @ -[No] Was there de-escalation of care discussed even if they declined (Discuss DNR or withdrawal of care, Hospice)? DNR status @ -[No] What co-morbidities impacted this encounter? (DM, HTN, Smoking, COPD, CAD, Cancer, CVA, ARF, Chemo, Hep., AIDS, mental health diagnosis, sleep apnea, morbid obesity)? @ -[None] Was patient admitted / discharged? Hospital course, mention meds given and route, prescriptions, significant lab abnormalities, going to OR and other pertinent info. @ -[hospital course] Undiagnosed new problem with uncertain prognosis? @ -[No] Drug Therapy requiring intensive monitoring for toxicity (Heparin, Nitro, Insuli n, Cardizem)? @ -[No] Were any procedures done? @ -[No] Diagnosis/symptom? @ -[Acute fall injury Elbow contusion Acute, or Chronic, or Acute on Chronic? @ -[Acute Uncomplicated (without systemic symptoms) or Complicated (systemic symptoms)? @ -[Uncomplicated Side effects of treatment? @ -[No] Exacerbation, Progression, or Severe Exacerbation? @ -[No] Poses a threat to life or bodily function? How? (Chest pain, USA, HI, pneumonia, PE, COPD, DKA, ARF, appy, cholecystitis, CVA, Diverticulitis, Homicidal, Suicidal, threat to staff... and all critical care pts) @ -[No] - Lab Data Result diagrams: 11/18/23 06:03 11/18/23 06:03 Lab Results 11/18/23 11/18/23 Range/Units 06:03 06:03 WBC 8.1 (3.8-10.6) k/uL RBC 4.32 (4.30-5.90) m/uL Hgb 13.3 (13.0-17.5) gm/dL Hct 40.0 (39.0-53.0) % MCV 92.6 (80.0-100.0) fL MCH 30.7 (25.0-35.0) pg MCHC 33.2 (31.0-37.0) g/dL RDW 14.2 (11.5-15.5) % Plt Count 184 (150-450) k/uL MPV 7.8 Neutrophils % 76 % Lymphocytes % 10 % Monocytes % 9 % Eosinophils % 4 % Basophils % 0 % Neutrophils # 6.1 (1.3-7.7) k/uL Lymphocytes # 0.8 L (1.0-4.8) k/uL Monocytes # 0.7 (0-1.0) k/uL Eosinophils # 0.3 (0-0.7) k/uL Basophils # 0.0 (0-0.2) k/uL Sodium 136 L (137-145) mmol/L Potassium 3.9 (3.5-5.1) mmol/L Chloride 105 (98-107) mmol/L Carbon Dioxide 24 (22-30) mmol/L Anion Gap 7 mmol/L BUN 18 (9-20) mg/dL Creatinine 0.76 (0.66-1.25) mg/dL Est GFR (CKD-EPI)AfAm >90 (>60 ml/min/1.73 sqM) Est GFR (CKD-EPI)NonAf 87 (>60 ml/min/1.73 sqM) Glucose 107 H (74-99) mg/dL Calcium 9.1 (8.4-10.2) mg/dL C-Reactive Protein 2.1 H (<1.0) mg/dL Disposition Clinical Impression: Fall, Contusion of elbow, left Disposition: HOME SELF-CARE Condition: Good Instructions (If sedation given, give patient instructions): Contusion in Adults (ED) Prescriptions: Ibuprofen [Motrin] 600 mg PO Q8HR PRN #20 tab PRN Reason: Pain Is patient prescribed a controlled substance at d/c from ED?: No Referrals: Zac Marcus MD [Primary Care Provider] - 1-2 days Grey Savage DO [Doctor of Osteopathic Medicine] - 1-2 days
[2023-11-18 07:27] LABS: African American GFR (CKD) >90 (>60 ml/min/1.73 sqM); Anion Gap 7 mmol/L; Blood Urea Nitrogen 18 mg/dL (9-20); C Reactive Protein 2.1 mg/dL (<1.0); Calcium 9.1 mg/dL (8.4-10.2); Carbon Dioxide 24 mmol/L (22-30); Chloride 105 mmol/L (98-107); Glucose 107 mg/dL (74-99); Non-African American GFR(CKD) 87 (>60 ml/min/1.73 sqM); Potassium 3.9 mmol/L (3.5-5.1)
[2023-11-18 08:51] VITALS: BP 122/79; TEMP 97.9
== END 2023-11-18 08:50 | disposition home or self-care (01) ==
LOC: EC 04:21
DX: R52 Pain, unspecified
CPT/HCPCS: 36415; 80048; 85025; 86140; 99284

== ENCOUNTER 2024-02-18 22:00 | Emergency (ER) | payer MEDICARE, OTHER ==
--- NOTE | 2024-02-18 22:33 | ED ---
Back Pain HPI - General Chief Complaint: Back Pain/Injury Stated Complaint: Back Pain Time Seen by Provider: 02/18/24 22:12 Source: patient, EMS, RN notes reviewed - History of Present Illness Initial Comments: This is a 78-year-old male with a history of memory impairment presenting via EMS from [facility] for complaint of chronic back pain. Patient states that pain is most severe of his right shoulder that is worse with range of motion and on palpation. Patient denies known trauma or injury to his shoulder. He denies mid back pain, chest pain, heart palpitations, dizziness, lightheadedness, abdom inal pain. States he has not attempted to take any medications for his pain. - Related Data Home Medications Medication Instructions Recorded Confirmed Lovastatin [Mevacor] 20 mg PO HS 08/19/13 09/13/21 Loratadine [Claritin] 10 mg PO DAILY PRN 02/13/14 09/13/21 allopurinoL [Zyloprim] 100 mg PO DAILY 02/13/14 09/13/21 QUEtiapine [SEROquel] 100 mg PO HS 07/20/20 09/13/21 Docusate Sodium 250mg 250 mg PO DAILY 09/11/20 09/13/21 Montelukast [Singulair] 10 mg PO HS 09/11/20 09/13/21 [place]-3 Fatty Acids [[place]-3] 1,000 mg PO DAILY 09/11/20 09/13/21 Dicyclomine [Bentyl] 20 mg PO QID 09/13/21 09/13/21 Famotidine [Pepcid] 20 mg PO BID 09/13/21 09/13/21 [place]-3 Acid Ethyl Esters [Lovaza] 1 gm PO DAILY 09/13/21 09/13/21 polyethylene glycoL 3350 [Miralax] 17 gm PO DAILY PRN 09/13/21 09/13/21 Previous Rx's Medication Instructions Recorded Diclofenac Sodium [Voltaren] 75 mg PO BID PRN #20 tab 09/13/21 Famotidine [Pepcid] 20 mg PO BID #14 tablet 02/27/23 Ibuprofen [Motrin] 600 mg PO Q8HR PRN #20 tab 11/18/23 Allergies Allergy/AdvReac Type Severity Reaction Status Date / Time No Known Allergies Allergy Verified 08/31/24 04:32 Review of Systems ROS Statement: Those systems with pertinent positive or pertinent negative responses have been documented in the HPI. ROS Other: All systems not noted in ROS Statement are negative. Past Medical History Past Medical History: GERD/Reflux, Hyperlipidemia, Hypertension, Memory Impairment, Osteoarthritis (OA) Additional Past Medical History / Comment(s): gout History of Any Multi-Drug Resistant Organisms: None Reported Past Surgical History: Unable to Obtain Additional Past Surgical History / Comment(s): Rt cataract Mar 2015 Past Anesthesia/Blood Transfusion Reactions: Unable to Obtain Additional Past Anesthesia/Blood Transfusion Reaction / Comment(s): never has had general anesthesia, unknown family hx, unknown blood transfusion hx Past Psychological History: Depression, Schizophrenia Smoking Status: Current every day smoker Past Alcohol Use History: None Reported Past Drug Use History: None Reported - Past Family History Father History Unknown: Yes Mother History Unknown: Yes General Exam General appearance: alert, in no apparent distress Eye exam: Present: normal appearance, PERRL, EOMI. Absent: scleral icterus, conjunctival injection, periorbital swelling ENT exam: Present: normal exam, mucous membranes moist Neck exam: Present: normal inspection. Absent: tenderness, meningismus, lymphadenopathy Respiratory exam: Present: normal lung sounds bilaterally. Absent: respiratory distress, wheezes, rales, rhonchi, stridor Cardiovascular Exam: Present: regular rate, normal rhythm, normal heart sounds. Absent: systolic murmur, diastolic murmur, rubs, gallop, clicks GI/Abdominal exam: Present: soft, normal bowel sounds. Absent: distended, tenderness, guarding, rebound, rigid Back exam: Present: normal inspection, tenderness (superior right shoulder) Neurological exam: Present: alert, oriented X3, CN II-XII intact Course Vital Signs 02/18/24 22:08 Temperature 98 F Pulse Rate 92 Respiratory 18 Rate Blood Pressure 120/76 O2 Sat by Pulse 94 L Oximetry Medical Decision Making - Medical Decision Making Was pt. sent in by a medical professional or institution (, PA, FLIGHT CONTROL MANAGER, urgent care, hospital, or detention...) When possible be specific @ -No Did you speak to anyone other than the patient for history (EMS, parent, family, police, friend...)? What history was obtained from this source @ -No Did you review nursing and triage notes (agree or disagree)? Why? @ -I reviewed and agree with nursing and triage notes Were old charts reviewed (outside hosp., previous admission, EMS record, old EKG, old radiological studies, urgent care reports/EKG's, detention records)? Report findings @ -No old charts were reviewed Differential Diagnosis (chest pain, altered mental status, abdominal pain women, abdominal pain men, vaginal bleeding, weakness, fever, dyspnea, syncope, headache, dizziness, GI bleed, back pain, seizure, CVA, palpatations, mental health, musculoskeletal)? @ -Differential Back Pain: Strain, zoster, cauda equina syndrome, epidural abscess, vertebral osteomyelitis, discitis, fracture, subluxation, disc herniation, DJD, spinal stenosis, dissection, AAA, pancreatitis, peptic ulcer disease, pyelonephritis, kidney stone, this is not meant to be an all-inclusive list. EKG interpreted by me (3pts min.). @ -None X-rays interpreted by me (1pt min.). @ -None done CT interpreted by me (1pt min.). @ -None done U/S interpreted by me (1pt. min.). @ -None done What testing was considered but not performed or refused? (CT, X-rays, U/S, labs)? Why? @ -None What meds were considered but not given or refused? Why? @ -None Did you discuss the management of the patient with other professionals (professionals i.e. , PA, FLIGHT CONTROL MANAGER, lab, RT, psych nurse, social media strategist, hiv counselor, teacher, appeals officer, rehabilitation caseworker)? Give summary @ -No Was smoking cessation discussed for >3mins.? @ -No Was critical care preformed (if so, how long)? @ -No Were there social determinants of health that impacted care today? How? (Homelessness, low income, unemployed, alcoholism, drug addiction, transportation, low edu. Level, literacy, decrease access to med. care, intermediate, rehab)? @ -No Was there de-escalation of care discussed even if they declined (Discuss DNR or withdrawal of care, Hospice)? DNR status @ -No What co-morbidities impacted this encounter? (DM, HTN, Smoking, COPD, CAD, Cancer, CVA, ARF, Chemo, Hep., AIDS, mental health diagnosis, sleep apnea, morbid obesity)? @ -None Was patient admitted / discharged? Hospital course, mention meds given and route, prescriptions, significant lab abnormalities, going to OR and other pertinent info. @ -Discharge. 78-year-old male with right sided shoulder/back pain. On my evaluation the patient has noted to have pain is reproduced on palpation and with range of motion of the right shoulder. There is minimal clinical concern for cardiac pathology as patient's pain seems musculoskeletal is reproducible and exacerbated with range of motion. Patient provided with dose of Toradol and Tylenol. On reevaluation states that he is feeling markedly better after medication administration. Recommend that patient continue Tylenol and Motrin as needed for pain relief. Discussed with Dr. Boss Undiagnosed new problem with uncertain prognosis? @ -No Drug Therapy requiring intensive monitoring for toxicity (Heparin, Nitro, Insulin, Cardizem)? @ -No Were any procedures done? @ -No Diagnosis/symptom? @ -Shoulder pain Acute, or Chronic, or Acute on Chronic? @ -Acute Uncomplicated (without systemic symptoms) or Complicated (systemic symptoms)? @ -Uncomplicated Side effects of treatment? @ -No Exacerbation, Progression, or Severe Exacerbation? @ -No Poses a threat to life or bodily function? How? (Chest pain, USA, [place], pneumonia, PE, COPD, DKA, ARF, appy, cholecystitis, CVA, Diverticulitis, Homicidal, Suicidal, threat to staff... and all critical care pts) @ -No Disposition Clinical Impression: Back pain Disposition: HOME SELF-CARE Condition: Good Instructions (If sedation given, give patient instructions): Chronic Back Pain (DC) Additional Instructions: Please return to the Emergency Department if symptoms worsen or any other concerns. Is patient prescribed a controlled substance at d/c from ED?: No Referrals: Zac Marcus MD [Primary Care Provider] - 1-2 days Time of Disposition: 00:59
[2024-02-18] MEDS: ACETAMINOPHEN TAB 325 MG TAB PO STA (22:47)
[2024-02-18] MEDS: KETOROLAC 15 MG/ML 1 ML VIAL IM STA (22:47)
[2024-02-19 02:12] VITALS: BP 108/66; PULSE 63; RESP 16; TEMP 98
== END 2024-02-19 02:02 | disposition home or self-care (01) ==
LOC: EC 22:00
DX: M54.9 Dorsalgia, unspecified (principal); M25.511 Pain in right shoulder; F17.200 Nicotine dependence, unspecified, uncomplicated
CPT/HCPCS: 99284; 96372; J1885

== ENCOUNTER 2024-02-19 15:30 | Emergency (ER) | payer MEDICARE, OTHER ==
[2024-02-19] MEDS: HYDROcodone/APAP 5-325MG 1 EACH TAB PO STA (16:10)
--- NOTE | 2024-02-19 18:03 | XR ---
EXAMINATION TYPE: XR thoracic spine 2V DATE OF EXAM: 02/19/2024 5:14 PM COMPARISON: None CLINICAL INDICATION: Male, 78 years old with history of pain; TECHNIQUE: XR thoracic spine 2V views of the spine in Frontal and lateral projections. FINDINGS: No evidence of acute fracture. Scattered mild wedging of the vertebral bodies in the mid [place] spine. . There is normal alignment of the thoracic vertebral bodies. Scattered osteophyte formation along th e anterior and lateral aspects of the vertebral bodies. Neural foramen are patent given limitations o f this exam. Spinal canal appears patent. IMPRESSION: 1. No acute osseous pathology. 2. 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 [facility], , 02/19/2024 6:01 PM
[2024-02-19] MEDS ORDERED: ACET/COD 300 MG/30 MG STARTER PACK 6 TAB BTL PO STA (18:10)
--- NOTE | 2024-02-19 18:12 | ED ---
General Adult HPI - General Chief complaint: Back Pain/Injury Stated complaint: Back Pain Time Seen by Provider: 02/19/24 15:58 Source: patient, EMS, RN notes reviewed, old records reviewed Mode of arrival: EMS Limitations: no limitations - History of Present Illness Initial comments: Patient is a 78-year-old male presents emergency department for acute on chronic back pain. Has run out of his pain meds. Is complaining of worsening pain in his mid spine. Was seen here recently for similar complaints however states he did not receive imaging. Would like imaging. I believe this is reasonable. Denies any saddle paresthesias, lower extremity weakness or numbness, and denies urinary or bowel incontinence or retention. Has no other acute complaints. No new injuries. Presents for further evaluation at this time. - Related Data Home Medications Medication Instructions Recorded Confirmed Lovastatin [Mevacor] 20 mg PO HS 08/19/13 09/13/21 Loratadine [Claritin] 10 mg PO DAILY PRN 02/13/14 09/13/21 allopurinoL [Zyloprim] 100 mg PO DAILY 02/13/14 09/13/21 QUEtiapine [SEROquel] 100 mg PO HS 07/20/20 09/13/21 Docusate Sodium 250mg 250 mg PO DAILY 09/11/20 09/13/21 Montelukast [Singulair] 10 mg PO HS 09/11/20 09/13/21 Alpha-3 Fatty Acids [Alpha-3] 1,000 mg PO DAILY 09/11/20 09/13/21 Dicyclomine [Bentyl] 20 mg PO QID 09/13/21 09/13/21 Famotidine [Pepcid] 20 mg PO BID 09/13/21 09/13/21 Alpha-3 Acid Ethyl Esters [Lovaza] 1 gm PO DAILY 09/13/21 09/13/21 polyethylene glycoL 3350 [Miralax] 17 gm PO DAILY PRN 09/13/21 09/13/21 Previous Rx's Medication Instructions Recorded Diclofenac Sodium [Voltaren] 75 mg PO BID PRN #20 tab 09/13/21 Famotidine [Pepcid] 20 mg PO BID #14 tablet 02/27/23 Ibuprofen [Motrin] 600 mg PO Q8HR PRN #20 tab 11/18/23 Allergies Allergy/AdvReac Type Severity Reaction Status Date / Time No Known Allergies Allergy Verified 02/19/24 15:42 Review of Systems ROS Statement: Those systems with pertinent positive or pertinent negative responses have been documented in the HPI. Review of Systems: CONST: Denies fever EYES: Denies blurry vision ENT: Denies nasal congestion C/V: Denies Chest pain RESP: Denies shortness of breath GI: Denies abdominal pain : Denies dysuria SKIN: Denies rash. MSK: Endorses back pain NEURO: Denies headache ROS Other: All systems not noted in ROS Statement are negative. Past Medical History Past Medical History: GERD/Reflux, Hyperlipidemia, Hypertension, Memory Impairment, Osteoarthritis (OA) Additional Past Medical History / Comment(s): gout History of Any Multi-Drug Resistant Organisms: None Reported Past Surgical History: Unable to Obtain Additional Past Surgical History / Comment(s): Rt cataract Mar 2015 Past Anesthesia/Blood Transfusion Reactions: Unable to Obtain Additional Past Anesthesia/Blood Transfusion Reaction / Comment(s): never has had general anesthesia, unknown family hx, unknown blood transfusion hx Past Psychological History: Depression, Schizophrenia Smoking Status: Current every day smoker Past Alcohol Use History: None Reported Past Drug Use History: None Reported - Past Family History Father History Unknown: Yes Mother History Unknown: Yes General Exam - General Exam Comments Initial Comments: General: Appears in no acute distress. HEAD: Normal with no signs of head trauma. EYES: EOMI. ENT: Hearing grossly intact. RESPIRATORY: No respiratory distress. C/V: Regular rate and rhythm. ABD: Abdomen is nondistended. EXT: Mild reproducible midline lower thoracic spine tenderness to palpation. Paraspinal muscle tenderness to palpation as well. No guarding. SKIN: No rashes or lesions observed on exposed skin. NEURO: Alert and oriented. Limitations: no limitations Course Vital Signs 02/19/24 02/19/24 15:40 18:21 Temperature 98.1 F 98 F Pulse Rate 65 66 Respiratory 16 18 Rate Blood Pressure 122/77 100/68 O2 Sat by Pulse 98 96 Oximetry Medical Decision Making - Medical Decision Making Was pt. sent in by a medical professional or institution (, PA, PARAFFIN MACHINE OPERATOR, urgent care, hospital, or long term...) When possible be specific @ -No Did you speak to anyone other than the patient for history (EMS, parent, family, police, friend...)? What history was obtained from this source @ -No Did you review nursing and triage notes (agree or disagree)? Why? @ -I reviewed and agree with nursing and triage notes Were old charts reviewed (outside hosp., previous admission, EMS record, old EKG, old radiological studies, urgent care reports/EKG's, long term records)? Report findings @ -Reviewed chart from yesterday. Patient was discharged home after pain medications. Did not receive x-rays or imaging at that time. Differential Diagnosis (chest pain, altered mental status, abdominal pain women, abdominal pain men, vaginal bleeding, weakness, fever, dyspnea, syncope, headache, dizziness, GI bleed, back pain, seizure, CVA, palpatations, mental health, musculoskeletal)? @ -Chronic back pain, arthritis, cauda equina syndrome. This list is not all inclusive. EKG interpreted by me (3pts min.). @ -None done X-rays interpreted by me (1pt min.). @ -Thoracic spine x-ray reveals degeneration of the spine with no obvious acute process. CT interpreted by me (1pt min.). @ -None done U/S interpreted by me (1pt. min.). @ -None done What testing was considered but not performed or refused? (CT, X-rays, U/S, labs)? Why? @ -None What meds were considered but not given or refused? Why? @ -None Did you discuss the management of the patient with other professionals ( professionals i.e. , PA, PARAFFIN MACHINE OPERATOR, lab, RT, psych nurse, social secretary, chronometer assembler, teacher, learning officer, keycase assembler)? Give summary @ -No Was smoking cessation discussed for >3mins.? @ -No Was critical care preformed (if so, how long)? @ -No Were there social determinants of health that impacted care today? How? (Homelessness, low income, unemployed, alcoholism, drug addiction, transportation, low edu. Level, literacy, decrease access to med. care, senior care, rehab)? @ -No Was there de-escalation of care discussed even if they declined (Discuss DNR or withdrawal of care, Hospice)? DNR status @ -No What co-morbidities impacted this encounter? (DM, HTN, Smoking, COPD, CAD, Cancer, CVA, ARF, Chemo, Hep., AIDS, mental health diagnosis, sleep apnea, morbid obesity)? @ -None Was patient admitted / discharged? Hospital course, mention meds given and route, prescriptions, significant lab abnormalities, going to OR and other pertinent info. @ -Patient presents with acute on chronic back pain. Patient will be administered a Kemmerer 5 and we will obtain an x-ray of the thoracic spine. Patient was in agreement this plan. Vital signs are within acceptable limits. No concern for cauda equina syndrome at this time. Imaging shows degenerative changes but no obvious acute injury. I updated patient. He will be discharged home at this time. Strict return precautions discussed. States he fills his pain medications on Monday. Recommended he follow-up with his PCP in the next 1 to 3 days. I instructed the patient to follow up with their PCP in the next 1-3 days. I explained that the patient should return to the emergency department if they experience any worsening symptoms. Strict return precautions were discussed with the patient. The patient expressed understanding of these instructions. I answered all questions that the patient had. The patient was discharged home in good condition with their prescriptions and follow up information. Undiagnosed new problem with uncertain prognosis? @ -No Drug Therapy requiring intensive monitoring for toxicity (Heparin, Nitro, Insulin, Cardizem)? @ -No Were any procedures done? @ -No Diagnosis/symptom? @ -Acute on chronic back pain Acute, or Chronic, or Acute on Chronic? @ -Acute on chronic Uncomplicated (without systemic symptoms) or Complicated (systemic symptoms)? @ -Uncomplicated Side effects of treatment? @ -No Exacerbation, Progression, or Severe Exacerbation? @ -No Poses a threat to life or bodily function? How? (Chest pain, [place], [place], pneumonia, PE, COPD, DKA, ARF, appy, cholecystitis, CVA, Diverticulitis, Homicidal, Suicidal, threat to staff... and all critical care pts) @ -No Disposition Clinical Impression: Back pain Disposition: HOME SELF-CARE Condition: Good Additional Instructions: You have Chronic back pain, follow-up with your PCP in the next 1 to 3 days. Return if worsening symptoms. Is patient prescribed a controlled substance at d/c from ED?: No Referrals: Zac Marcus MD [Primary Care Provider] - 1-2 days Time of Disposition: 18:12
[2024-02-19 18:23] VITALS: BP 100/68; PULSE 66; RESP 18; TEMP 98
== END 2024-02-19 18:23 | disposition home or self-care (01) ==
LOC: EC 15:30
DX: G89.29 Other chronic pain (principal); M54.6 Pain in thoracic spine; F17.200 Nicotine dependence, unspecified, uncomplicated
CPT/HCPCS: 72070; 99283

== ENCOUNTER 2024-06-28 07:49 | Day surgery (SDC) | payer MEDICARE, OTHER ==
[~2024-06-28 07:49] MED LIST changes: -LIDOCAINE 1% (10MG/ML) FOR IV START INTRADERMA PRN
[2024-06-28 08:18] VITALS: RESP 16; TEMP 98.2
[2024-06-28] MEDS: IV FLUID CONTINUATION 1,000 ML IV ONE ×2 (08:28→08:49)
[2024-06-28] MEDS ORDERED: PROPOFOL 10 MG/ML 20 ML VIAL IV ONE (08:50)
[2024-06-28] MEDS ORDERED: LIDOCAINE 2% (PF) 20 MG/ML 5 ML VIAL ONE (08:50)
--- NOTE | 2024-06-28 09:16 | P.PCN ---
Date of Procedure: 06/28/24 Procedure(s) Performed: Brief history: Patient is a pleasant 79-year-old white male scheduled for an elective upper endoscopy as well as colonoscopy as a part of evaluation of GERD, abdominal pain and screening for history of colon polyp Procedure performed: Esophagogastroduodenoscopy with biopsy Colonoscopy with cold snare polypectomy and biopsy Preoperative diagnosis: GERD/abdominal pain Screening for history of colon polyps Anesthesia: MAC Procedure: After informed consent was obtained from the patient was brought into the endoscopy unit and IV sedation was administered by anesthesia under continuous monitoring. Initially upper endoscopy was done. The Olympus GF 160 video endoscope was inserted inserted into the mouth and esophagus intubated without any difficulty and was gradually advanced into the stomach and duodenum and carefully examined. The bulb and second part of the duodenum appeared normal. The scope was then withdrawn into the stomach adequately insufflated with air and upon careful examination the antrum and mild gastritis and biopsies were done from this area. Mucosa of the body, cardia and fundus appeared normal. The scope was then withdrawn into the esophagus. Small hiatal hernia noted. The GE junction was located at 40 cm to the incisors. It appeared irregular with a short segment of Canela's esophagus extending centimeters proximal to the GE junction that was biopsied. Rest of the esophagus appeared normal. Patient tolerated the procedure well. At this time the patient continued to remain sedation. Initial digital rectal examination was normal. Olympus CF 160 video colonoscope was then inserted into the rectum and gradually advanced to the cecum without any difficulty. Careful examination was performed as the scope was gradually being withdrawn. The prep was excellent. The cecum, ascending colon. The transverse colon there was a 4 mm polyp that was removed by cold biopsy. In the descending colon there was a 7 mm polyp removed by cold snare polypectomy. Rest of the, transverse colon, descending colon, sigmoid colon and rectum appeared normal. In the rectum there was a 5 mm polyp removed by cold snare polypectomy. Retroflexion was performed in the rectum and no lesions were noted. Patient tolerated the procedure well. Impression: 1. Upper endoscopy revealed mild gastritis, small hiatal hernia Segment Canela's esophagus 2. Colonoscopy revealed: 4 mm ascending colon polyp status post cold biopsy 7 mm descending colon polyp status post cold snare polypectomy 5 mm rectal polyp status post cold snare polypectomy Recommendations: Findings of this examination were discussed with the patient as well as his family. He was advised to follow-up with the biopsy results. Continue with pantoprazole 40 mg daily and follow antireflux measures
[2024-06-28 10:06] VITALS: BP 135/78; PULSE 68
== END 2024-06-28 10:14 | disposition home health service (06) ==
LOC: ORWHC2ENDO 07:49
PROVIDERS: ATTEND Internal Medicine Gastroenterology
DX: Z12.11 Encounter for screening for malignant neoplasm of colon (principal); D12.3 Benign neoplasm of transverse colon; D12.4 Benign neoplasm of descending colon; D12.8 Benign neoplasm of rectum; K29.00 Acute gastritis without bleeding; K21.00 Gastro-esophageal reflux disease with esophagitis, without bleeding; K22.70 Barrett's esophagus without dysplasia; K44.9 Diaphragmatic hernia without obstruction or gangrene; I10 Essential (primary) hypertension; E78.5 Hyperlipidemia, unspecified; F03.90 Unspecified dementia, unspecified severity, without behavioral disturbance, psychotic disturbance, mood disturbance, and anxiety; Z86.0100 Personal history of colon polyps, unspecified; Z79.899 Other long term (current) drug therapy; Z98.890 Other specified postprocedural states
CPT/HCPCS: 88305; 88342; 45380; 45385; 43239; J2704; J2003

== ENCOUNTER 2024-08-03 22:58 | Emergency (ER) | payer MEDICARE, OTHER ==
--- NOTE | 2024-08-04 01:55 | ED ---
General Adult HPI - General Source: patient, police Mode of arrival: ambulatory Limitations: no limitations <Tatyana Boss - Last Filed: 08/04/24 01:51> <Jitendra Bingham - Last Filed: 08/05/24 12:48> - General Chief complaint: Psychiatric Symptoms Stated complaint: Petition Time Seen by Provider: 08/04/24 00:01 - History of Present Illness Initial comments: Patient is an 79-year-old male no significant past medical history presenting today for suicidal ideation. Patient states that he was at home when the police showed up because he had made comments of suicide. He does states that he would kill himself by hitting his head against a wall. States he did hit the back of his head against the wall, denies LOC. Is not on blood thinners. He denies HI. Denies hallucinations. Denies psychiatric history. Denies additional complaints beyond cramps in his legs. (Tatyana Boss) - Related Data Home Medications Medication Instructions Recorded Confirmed Lovastatin [Mevacor] 20 mg PO HS 08/19/13 08/04/24 allopurinoL [Zyloprim] 100 mg PO DAILY@0800 02/13/14 08/04/24 Pantoprazole [Protonix] 40 mg PO DAILY 06/27/24 08/04/24 Ammonium Lactate Lotion 1 applic TOPICAL BID PRN 08/04/24 08/04/24 [Lac-Hydrin 12% Lotion] Ensure 60 ml PO DIRECTED 08/04/24 08/04/24 Ketoconazole 2% Cream [Nizoral 2%] 1 applic TOPICAL HS 08/04/24 08/04/24 Loratadine [Claritin] 10 mg PO DIRECTED PRN 08/04/24 08/04/24 QUEtiapine [SEROquel] 50 mg PO HS 08/04/24 08/04/24 Sennosides [Senokot] 8.6 mg PO DIRECTED 08/04/24 08/04/24 Allergies Allergy/AdvReac Type Severity Reaction Status Date / Time No Known Allergies Allergy Verified 08/04/24 10:43 Review of Systems ROS Other: All systems not noted in ROS Statement are negative. <Tatyana Boss - Last Filed: 08/04/24 01:51> ROS Other: All systems not noted in ROS Statement are negative. <Jitendra Bingham - Last Filed: 08/05/24 12:48> ROS Statement: Those systems with pertinent positive or pertinent negative responses have been documented in the HPI. Past Medical History Past Medical History: GERD/Reflux, Hyperlipidemia, Hypertension, Memory Impairment, Osteoarthritis (OA) Additional Past Medical History / Comment(s): currently having abd pain after eating,recent US of neck-benign findings, unsteady gait-uses a cane - still rides 3 wheel bike all over,hx tartive diskenesia-resolve, gout,colon polyps,GI bleed 2019,seosonal alg,had PET scan 2019 for abnormal lung field(negative scan) low hgb History of Any Multi-Drug Resistant Organisms: None Reported Past Surgical History: Unable to Obtain Additional Past Surgical History / Comment(s): Rt cataract Mar 2015,colonoscopies,egds Past Anesthesia/Blood Transfusion Reactions: Unable to Obtain Additional Past Anesthesia/Blood Transfusion Reaction / Comment(s): never has had general anesthesia, unknown family hx, unknown blood transfusion hx Past Psychological History: Depression, Schizophrenia Smoking Status: Current every day smoker Past Alcohol Use History: None Reported Past Drug Use History: None Reported - Past Family History Father History Unknown: Yes Mother History Unknown: Yes <Tatyana Boss - Last Filed: 08/04/24 01:51> General Exam Limitations: no limitations <Tatyana Boss - Last Filed: 08/04/24 01:51> - General Exam Comments Initial Comments: Vital signs reviewed General: Well-appearing, nontoxic, no acute distress. Head: Normocephalic, contusion to posterior occiput Eyes: PERRLA, EOMI ENT: Airway patent Chest: Nonlabored breathing Skin: No visual rash, normal skin tone Neuro: Alert and oriented 3 Musculoskeletal: No gross abnormalities Psychiatric: Calm, cooperative, sleeping comfortably, awakens easily, endorses SI, denies HI, does not appear to be responding to internal stimuli (Tatyana Boss) Course Vital Signs 08/03/24 08/04/24 08/04/24 23:04 08:08 18:19 Temperature 98.3 F 97.8 F 98.2 F Pulse Rate 92 85 65 Respiratory 20 18 18 Rate Blood Pressure 135/77 129/69 122/54 O2 Sat by Pulse 96 95 96 Oximetry 08/05/24 08/05/24 00:00 08:00 Temperature Pulse Rate 68 72 Respiratory 16 20 Rate Blood Pressure 131/72 140/70 O2 Sat by Pulse 98 98 Oximetry Medical Decision Making <Tatyana Boss - Last Filed: 08/04/24 01:51> - Lab Data Result diagrams: 08/04/24 06:46 08/04/24 06:46 <JusticepipergrupoJitendra David - Last Filed: 08/05/24 12:48> - Medical Decision Making Was pt. sent in by a medical professional or institution (, PA, BAKERY TEAM MEMBER, urgent care, hospital, or [place] [facility] facility...) When possible be specific @ -[No] Did you speak to anyone other than the patient for history (EMS, parent, family, police, friend...)? What history was obtained from this source @ -[No] Did you review nursing and triage notes (agree or disagree)? Why? @ -[I reviewed nursing and triage notes] Were old charts reviewed (outside hosp., previous admission, EMS record, old EKG, old radiological studies, urgent care reports/EKG's, [place] [facility] records)? Report findings @ -[Medical records reviewed]- Differential Diagnosis (chest pain, altered mental status, abdominal pain women, abdominal pain men, vaginal bleeding, weakness, fever, dyspnea, syncope, headache, dizziness, GI bleed, back pain, seizure, CVA, palpatations, mental health, musculoskeletal)? @ -Differential mental health EKG interpreted by me (3pts min.). @ -[As above] X-rays interpreted by me (1pt min.). @ -[None done] CT interpreted by me (1pt min.). @ -[None done] U/S interpreted by me (1pt. min.). @ -[None done] What testing was considered but not performed or refused? (CT, X-rays, U/S, labs)? Why? @ -[None] What meds were considered but not given or refused? Why? @ -[None] Did you discuss the management of the patient with other professionals (professionals i.e. , PA, BAKERY TEAM MEMBER, lab, RT, psych nurse, secondary social studies teacher, energy management specialist, teacher, preventive medicine officer, welfare case worker)? Give summary @ -[No] Was smoking cessation discussed for >3mins.? @ -[No] Was critical care preformed (if so, how long)? @ -[No] Were there social determinants of health that impacted care today? How? (Homelessness, low income, unemployed, alcoholism, drug addiction, transportation, low edu. Level, literacy, decrease access to med. care, care home, rehab)? @ -[No] Was there de-escalation of care discussed even if they declined (Discuss DNR or withdrawal of care, Hospice)? @ -[No] What co-morbidities impacted this encounter? (DM, HTN, Smoking, COPD, CAD, Cancer, CVA, ARF, Chemo, Hep., AIDS, mental health diagnosis, sleep apnea, morbid obesity)? @ -[None] Was patient admitted / discharged? Hospital course, mention meds given and route, prescriptions, significant lab abnormalities, going to OR and other pertinent info. @ -[hospital course] this is a pleasant 79-year-old gentleman presenting today for suicidal ideation. Hit his head against a wall. Petition by police. Contusion on posterior aspect on exam, oriented x 4, does not appear to be starting to internal stimuli. Will obtain CT brain and then cleared for EPS evaluation Undiagnosed new problem with uncertain prognosis? @ -[No] Drug Therapy requiring intensive monitoring for toxicity (Heparin, Nitro, Insulin, Cardizem)? @ -[No] Were any procedures done? @ -[No] Diagnosis/symptom? @ -[default] Acute, or Chronic, or Acute on Chronic? @ -[default] Uncomplicated (without systemic symptoms) or Complicated (systemic symptoms)? @ -[default] Side effects of treatment? @ -[No] Exacerbation, Progression, or Severe Exacerbation? @ -[No] Poses a threat to life or bodily function? How? (Chest pain, [place], [place], pneumonia, PE, COPD, DKA, ARF, appy, cholecystitis, CVA, Diverticulitis, Homicidal, Suicidal, threat to staff... and all critical care pts) @ -[No] (Tatyana Boss) Patient care signed out to me by previous shift physician. Briefly, patient is an 79-year-old male presents to the emergency department for psychiatric evaluation. Patient allegedly had made suicidal statements to police. Patient was medically cleared by Dr. Boss. Patient was school recommended discharge after a safety plan was in place. Patient observed in the emergency department for approximately 37 hours. Will be discharged. All parties agreeable with disposition plan. (Jitendra Bingham) - Lab Data Lab Results 08/04/24 08/04/24 08/04/24 Range/Units 06:30 06:46 06:46 WBC 8.41 (4.50-10.00) 10*3/uL RBC 4.81 (4.40-5.60) 10*6/uL Hgb 14.7 (13.0-17.0) g/dL Hct 43.4 (39.6-50.0) % MCV 90.2 (80.0-97.0) fL MCH 30.6 (27.0-32.0) pg MCHC 33.9 (32.0-37.0) g/dL Plt Count 223 (140-440) 10*3/uL MPV 10.4 (9.5-12.2) fL Immature Gran % (Auto) 0.4 % Neutrophils % 52.5 % Lymphocytes % 26.3 % Monocytes % 10.3 % Eosinophils % 9.5 % Basophils % 1.0 % Immature Gran # 0.03 (0.00-0.04) 10*3/uL Neutrophils # 4.42 (1.80-7.70) 10*3/uL Lymphocytes # 2.21 (0.90-5.00) 10*3/uL Monocytes # 0.87 (0.20-1.00) 10*3/uL Eosinophils # 0.80 H (0.04-0.35) 10*3/uL Basophils # 0.08 (0.00-0.10) 10*3/uL Sodium 139 (137-145) mmol/L Potassium 4.4 (3.5-5.1) mmol/L Chloride 106 (98-107) mmol/L Carbon Dioxide 24 (22-30) mmol/L Anion Gap 9 mmol/L BUN 22 H (9-20) mg/dL Creatinine 0.86 (0.66-1.25) mg/dL Est GFR (CKD-EPI)AfAm >90 (>60 ml/min/1.73 sqM) Est GFR (CKD-EPI)NonAf 82 (>60 ml/min/1.73 sqM) Glucose 98 (74-99) mg/dL Calcium 9.5 (8.4-10.2) mg/dL Total Bilirubin 0.7 (0.2-1.3) mg/dL AST 25 (17-59) U/L ALT 15 (4-49) U/L Alkaline Phosphatase 82 (38-126) U/L Total Protein 6.9 (6.3-8.2) g/dL Albumin 4.1 (3.5-5.0) g/dL TSH 1.650 (0.465-4.680) mIU/L Urine Opiates Screen Not Detected (NotDetected) Ur Oxycodone Screen Not Detected (NotDetected) Urine Methadone Screen Not Detected (NotDetected) Ur Barbiturates Screen Not Detected (NotDetected) U Tricyclic Antidepress Not Detected (NotDetected) Ur Phencyclidine Scrn Not Detected (NotDetected) Ur Amphetamines Screen Not Detected (NotDetected) U Methamphetamines Scrn Not Detected (NotDetected) U Benzodiazepines Scrn Not Detected (NotDetected) Urine Cocaine Screen Not Detected (NotDetected) U Marijuana (THC) Screen Not Detected (NotDetected) SARS-CoV-2 (PCR) (Not Detectd) 08/04/24 Range/Units 08:21 WBC (4.50-10.00) 10*3/uL RBC (4.40-5.60) 10*6/uL Hgb (13.0-17.0) g/dL Hct (39.6-50.0) % MCV (80.0-97.0) fL MCH (27.0-32.0) pg MCHC (32.0-37.0) g/dL Plt Count (140-440) 10*3/uL MPV (9.5-12.2) fL Immature Gran % (Auto) % Neutrophils % % Lymphocytes % % Monocytes % % Eosinophils % % Basophils % % Immature Gran # (0.00-0.04) 10*3/uL Neutrophils # (1.80-7.70) 10*3/uL Lymphocytes # (0.90-5.00) 10*3/uL Monocytes # (0.20-1.00) 10*3/uL Eosinophils # (0.04-0.35) 10*3/uL Basophils # (0.00-0.10) 10*3/uL Sodium (137-145) mmol/L Potassium (3.5-5.1) mmol/L Chloride (98-107) mmol/L Carbon Dioxide (22-30) mmol/L Anion Gap mmol/L BUN (9-20) mg/dL Creatinine (0.66-1.25) mg/dL Est GFR (CKD-EPI)AfAm (>60 ml/min/1.73 sqM) Est GFR (CKD-EPI)NonAf (>60 ml/min/1.73 sqM) Glucose (74-99) mg/dL Calcium (8.4-10.2) mg/dL Total Bilirubin (0.2-1.3) mg/dL AST (17-59) U/L ALT (4-49) U/L Alkaline Phosphatase (38-126) U/L Total Protein (6.3-8.2) g/dL Albumin (3.5-5.0) g/dL TSH (0.465-4.680) mIU/L Urine Opiates Screen (NotDetected) Ur Oxycodone Screen (NotDetected) Urine Methadone Screen (NotDetected) Ur Barbiturates Screen (NotDetected) U Tricyclic Antidepress (NotDetected) Ur Phencyclidine Scrn (NotDetected) Ur Amphetamines Screen (NotDetected) U Methamphetamines Scrn (NotDetected) U Benzodiazepines Scrn (NotDetected) Urine Cocaine Screen (NotDetected) U Marijuana (THC) Screen (NotDetected) SARS-CoV-2 (PCR) Not Detected (Not Detectd) Disposition <Tatyana Boss - Last Filed: 08/04/24 01:51> Is patient prescribed a controlled substance at d/c from ED?: No Time of Disposition: 12:48 <Jitendra Bingham - Last Filed: 08/05/24 12:48> Clinical Impression: Psychiatric complaint Disposition: HOME SELF-CARE Condition: Fair Instructions (If sedation given, give patient instructions): Help Prevent Suicide (ED) Referrals: None,Stated [Primary Care Provider] - 1-2 days
--- NOTE | 2024-08-04 03:54 | CT ---
EXAM: CT Head Without Intravenous Contrast CLINICAL HISTORY: ITS.REASON CT Reason: hit head against wall, palpable contusion TECHNIQUE: Axial computed tomography images of the head/brain without intravenous contrast. CTDI is 49.2 mGy and DLP is 1211 mGy-cm. This CT exam was performed using one or more of the following dose reduction techniques: automated exposure control, adjustment of the mA and/or kV according to patient size, and/or use of iterative reconstruction technique. COMPARISON: No relevant prior studies available. FINDINGS: Brain: No hemorrhage, herniation, or mass effect. Chronic microvascular ischemic changes. Ventricles: No hydrocephalus. Age related cerebral volume loss. Bones/joints: Chronic nasal bone fracture. Soft tissues: Scalp swelling. Sinuses: No air fluid levels. Mastoid air cells: Clear. IMPRESSION: No acute hemorrhage, hydrocephalus, or mass effect.
[2024-08-04 06:54] LABS: Basophils # (A) 0.08 10*3/uL (0.00-0.10); Eosinophils % (A) 9.5 %; HCT 43.4 % (39.6-50.0); HGB 14.7 g/dL (13.0-17.0); Lymphocytes # (A) 2.21 10*3/uL (0.90-5.00); Lymphocytes % (A) 26.3 %; MCH 30.6 pg (27.0-32.0); MCHC 33.9 g/dL (32.0-37.0); MCV 90.2 fL (80.0-97.0); Mean Platelet Volume 10.4 fL (9.5-12.2); Monocytes # (A) 0.87 10*3/uL (0.20-1.00); Monocytes % (A) 10.3 %; Neutrophils # (A) 4.42 10*3/uL (1.80-7.70); Neutrophils % (A) 52.5 %; Platelet Count 223 10*3/uL (140-440); RBC 4.81 10*6/uL (4.40-5.60); RDW 13.9 % (11.5-14.5); WBC 8.41 10*3/uL (4.50-10.00)
[2024-08-04 07:05] LABS: ALT 15 U/L (4-49); AST 25 U/L (17-59); African American GFR (CKD) >90 (>60 ml/min/1.73 sqM); Albumin 4.1 g/dL (3.5-5.0); Alkaline Phosphatase 82 U/L (38-126); Anion Gap 9 mmol/L; Blood Urea Nitrogen 22 mg/dL (9-20); Calcium 9.5 mg/dL (8.4-10.2); Carbon Dioxide 24 mmol/L (22-30); Chloride 106 mmol/L (98-107); Glucose 98 mg/dL (74-99); Non-African American GFR(CKD) 82 (>60 ml/min/1.73 sqM); Potassium 4.4 mmol/L (3.5-5.1); Sodium 139 mmol/L (137-145); Total Bilirubin 0.7 mg/dL (0.2-1.3); Total Protein 6.9 g/dL (6.3-8.2)
[2024-08-04 07:11] LABS: Amphetamine Screen,Urine Not Detected (NotDetected); Barbiturate Screen,Urine Not Detected (NotDetected); Benzodiazepines Screen,Urine Not Detected (NotDetected); Cocaine Screen,Urine Not Detected (NotDetected); Methadone Screen, Urine Not Detected (NotDetected); Opiate Screen,Urine Not Detected (NotDetected); Oxycodone Screen, Urine Not Detected (NotDetected); Phencyclidine Screen,Urine Not Detected (NotDetected); Tricyclic Antidepressant,Urine Not Detected (NotDetected); Urn Cannabinoid Scrn Not Detected (NotDetected)
[2024-08-04 18:20] VITALS: TEMP 98.2
[2024-08-04] MEDS ORDERED: AMMONIUM LACTATE 12% LOTION 225 GM BTL TOPICAL PRN (21:47)
[2024-08-04] MEDS ORDERED: LORATADINE 10 MG TAB PO PRN (21:47)
[2024-08-04] MEDS ORDERED: NON FORMULARY DRUG (Ensure 1 CAN Ml) PO SCH (22:00)
[2024-08-05] MEDS: QUEtiapine 50 MG TAB PO SCH (00:06)
[2024-08-05] MEDS: ATORVASTATIN 10 MG TAB PO SCH (00:07)
[2024-08-05] MEDS: SENNOSIDES 8.6 MG TAB PO SCH (00:07)
[2024-08-05] MEDS: allopurinoL 100 MG TAB PO SCH (08:24)
[2024-08-05] MEDS: PANTOPRAZOLE 40 MG TABLET PO SCH (08:24)
[2024-08-05 13:11] VITALS: BP 130/60; PULSE 65; RESP 16
[2024-08-05] MEDS ORDERED: CLOTRIMAZOLE 1% CREAM 30 GM TUBE TOPICAL SCH (21:00)
== END 2024-08-05 14:39 | disposition home or self-care (01) ==
LOC: EC 22:58
DX: R45.851 Suicidal ideations (principal); F17.200 Nicotine dependence, unspecified, uncomplicated; Z11.52 Encounter for screening for COVID-19; W22.01XA Walked into wall, initial encounter
CPT/HCPCS: 36415; 70450; 80053; 80306; 82075; 84443; 85025; 87635; 99285

== ENCOUNTER 2024-09-29 19:34 | Emergency (ER) | payer MEDICARE, OTHER ==
[2024-09-29 19:40] VITALS: RESP 18
--- NOTE | 2024-09-29 20:27 | ED ---
Back Pain HPI - General Chief Complaint: Back Pain/Injury Stated Complaint: back pain Time Seen by Provider: 09/29/24 19:51 Source: patient, RN notes reviewed Limitations: no limitations - History of Present Illness Initial Comments: This is an 79-year-old male with history including memory impairment and OA presenting for back and knee pain since Monday. Patient states the pain worsens with ambulation (03/29). Patient states he has a history of similar pain. Otherwise denies recent trauma or fall prior to start of symptoms. Patient also endorses constipation for the past 3 months. Denies saddle paresthesia or urinary incontinence/retention. Onset/Timin -: days(s) Radiation: left leg Severity scale (1-10): 1 Associated Symptoms: denies other symptoms - Related Data Home Medications Medication Instructions Recorded Confirmed Lovastatin [Mevacor] 20 mg PO HS 08/19/13 08/04/24 allopurinoL [Zyloprim] 100 mg PO DAILY@0800 02/13/14 08/04/24 Pantoprazole [Protonix] 40 mg PO DAILY 06/27/24 08/04/24 Ammonium Lactate Lotion 1 applic TOPICAL BID PRN 08/04/24 08/04/24 [Lac-Hydrin 12% Lotion] Ensure 60 ml PO DIRECTED 08/04/24 08/04/24 Ketoconazole 2% Cream [Nizoral 2%] 1 applic TOPICAL HS 08/04/24 08/04/24 Loratadine [Claritin] 10 mg PO DIRECTED PRN 08/04/24 08/04/24 QUEtiapine [SEROquel] 50 mg PO HS 08/04/24 08/04/24 Sennosides [Senokot] 8.6 mg PO DIRECTED 08/04/24 08/04/24 Previous Rx's Medication Instructions Recorded Lidocaine 4% Patch 1 patch TOPICAL Q24H PRN #10 patch 09/29/24 Allergies Allergy/AdvReac Type Severity Reaction Status Date / Time No Known Allergies Allergy Verified 09/29/24 19:40 Review of Systems ROS Statement: Those systems with pertinent positive or pertinent negative responses have been documented in the HPI. ROS Other: All systems not noted in ROS Statement are negative. Past Medical History Past Medical History: GERD/Reflux, Hyperlipidemia, Hypertension, Memory Impairment, Osteoarthritis (OA) Additional Past Medical History / Comment(s): currently having abd pain after eating,recent US of neck-benign findings, unsteady gait-uses a cane - still rides 3 wheel bike all over,hx tartive diskenesia-resolve, gout,colon polyps,GI bleed 2018,seosonal alg,had PET scan 2019 for abnormal lung field(negative scan) low hgb History of Any Multi-Drug Resistant Organisms: None Reported Past Surgical History: Unable to Obtain Additional Past Surgical History / Comment(s): Rt cataract Mar 2015,colonoscopies,egds Past Anesthesia/Blood Transfusion Reactions: Unable to Obtain Additional Past Anesthesia/Blood Transfusion Reaction / Comment(s): never has had general anesthesia, unknown family hx, unknown blood transfusion hx Past Psychological History: Depression, Schizophrenia Smoking Status: Current every day smoker Past Alcohol Use History: None Reported Past Drug Use History: None Reported - Past Family History Father History Unknown: Yes Mother History Unknown: Yes General Exam Limitations: no limitations General appearance: alert, in no apparent distress Head exam: Present: atraumatic, normocephalic, normal inspection Eye exam: Present: normal appearance, PERRL, EOMI. Absent: scleral icterus, conjunctival injection, periorbital swelling ENT exam: Present: normal exam, mucous membranes moist Neck exam: Present: normal inspection. Absent: tenderness, meningismus, lymphadenopathy Respiratory exam: Present: normal lung sounds bilaterally. Absent: respiratory distress, wheezes, rales, rhonchi, stridor Cardiovascular Exam: Present: regular rate, normal rhythm, normal heart sounds. Absent: systolic murmur, diastolic murmur, rubs, gallop, clicks GI/Abdominal exam: Present: soft, hyperactive bowel sounds. Absent: distended, tenderness, guarding, rebound, rigid Extremities exam: Present: full ROM, tenderness (Positive left knee tibial plateau tenderness without obvious crepitus, deformity, open wound. Negative Lauren's, varus/valgus, Ivana's), normal capillary refill. Absent: pedal edema, joint swelling, calf tenderness Back exam: Present: muscle spasm, paraspinal tenderness Neurological exam: Present: alert, oriented X3, CN II-XII intact Psychiatric exam: Present: normal affect, normal mood Skin exam: Present: warm, dry, intact, normal color. Absent: rash Course Vital Signs 09/29/24 09/29/24 09/29/24 19:38 22:14 22:52 Temperature 97.8 F 98.7 F Pulse Rate 76 76 75 Respiratory 18 18 18 Rate Blood Pressure 114/65 118/67 118/67 O2 Sat by Pulse 97 96 95 Oximetry Medical Decision Making - Medical Decision Making Was pt. sent in by a medical professional or institution (, PA, FINE CHEMICALS OPERATOR, urgent care, hospital, or prison...) When possible be specific @ -No Did you speak to anyone other than the patient for history (EMS, parent, family, police, friend...)? What history was obtained from this source @ -No Did you review nursing and triage notes (agree or disagree)? Why? @ -I reviewed and agree with nursing and triage notes Were old charts reviewed (outside hosp., previous admission, EMS record, old EKG, old radiological studies, urgent care reports/EKG's, prison records)? Report findings @ -No old charts were reviewed Differential Diagnosis (chest pain, altered mental status, abdominal pain women, abdominal pain men, vaginal bleeding, weakness, fever, dyspnea, syncope, headache, dizziness, GI bleed, back pain, seizure, CVA, palpatations, mental health, musculoskeletal)? @ -Differential Musculoskeletal Muscular strain, contusion, ligament sprain, fracture, arthritis, septic arthritis, bursitis, cellulitis, muscle spasm, nerve compression, DVT, arterial occlusion, herpes zoster, electrolyte abnormality, tumor.... This is not meant to be in all inclusive list EKG interpreted by me (3pts min.). @ -Not done X-rays interpreted by me (1pt min.). @ -Lumbar spine x-ray shows no acute fracture or dislocation with moderate/severe multilevel DDD. Left knee x-ray shows severe tricompartmental osteoarthritic changes without fracture or dislocation. KUB x-ray shows moderate stool burden throughout the colon with nonspecific bowel gas pattern or evidence of acute process. CT interpreted by me (1pt min.). @ -None done U/S interpreted by me (1pt. min.). @ -None done What testing was considered but not performed or refused? (CT, X-rays, U/S, labs)? Why? @ -None What meds were considered but not given or refused? Why? @ -None Did you discuss the management of the patient with other professionals (professionals i.e. Dr., PA, FINE CHEMICALS OPERATOR, lab, RT, psych nurse, addiction social worker, barrel lathe operator, teacher, guest relations officer, special education case manager)? Give summary @ -No Was smoking cessation discussed for >3mins.? @ -No Was critical care preformed (if so, how long)? @ -No Were there social determinants of health that impacted care today? How? (Homelessness, low income, unemployed, alcoholism, drug addiction, transportation, low edu. Level, literacy, decrease access to med. care, fci, rehab)? @ -No Was there de-escalation of care discussed even if they declined (Discuss DNR or withdrawal of care, Hospice)? DNR status @ -No What co-morbidities impacted this encounter? (DM, HTN, Smoking, COPD, CAD, Cancer, CVA, ARF, Chemo, Hep., AIDS, mental health diagnosis, sleep apnea, morbid obesity)? @ -None Was patient admitted / discharged? Hospital course, mention meds given and route, prescriptions, significant lab abnormalities, going to OR and other pertinent info. @ -Lumbar spine x-ray shows no acute fracture or dislocation with moderate/severe multilevel DDD. Left knee x-ray shows severe tricompartmental osteoarthritic changes without fracture or dislocation. KUB x-ray shows moderate stool burden throughout the colon with nonspecific bowel gas pattern or evidence of acute process. Patient provided lidocaine patch for lower back, p.o. magnesium citrate and Fleet enema to perform at home. Lidocaine patches sent to patient's pharmacy. Advised Tylenol every 4-6 hours as needed for pain as well as warm compress to lower back for 10 minutes up to 4 times daily. Advise follow-up with PCP/orthopedics for ongoing management of back and knee pain. Increase intake of water, prune juice and soluble/insoluble fiber for constipation. Return to ER if symptoms should worsen. Discussed patient with Dr. Paul. Undiagnosed new problem with uncertain prognosis? @ -No Drug Therapy requiring intensive monitoring for toxicity (Heparin, Nitro, Insulin, Cardizem)? @ -No Were any procedures done? @ -No Diagnosis/symptom? @ -Lumbar DDD, left knee arthritis, constipation Acute, or Chronic, or Acute on Chronic? @ -Acute on chronic Uncomplicated (without systemic symptoms) or Complicated (systemic symptoms)? @ -Uncomplicated Side effects of treatment? @ -No Exacerbation, Progression, or Severe Exacerbation? @ -No Poses a threat to life or bodily function? How? (Chest pain, [place], [place], pneumonia, PE, COPD, DKA, ARF, appy, cholecystitis, CVA, Diverticulitis, Homicidal, Suicidal, threat to staff... and all critical care pts) @ -No Disposition Clinical Impression: Lumbar degenerative disc disease, Arthritis of left knee, Constipation Disposition: HOME SELF-CARE Condition: Fair Instructions (If sedation given, give patient instructions): Constipation (ED), High Fiber Diet (ED), Acute Low Back Pain (ED), Fleet Enema (ED) Additional Instructions: Tylenol every 4-6 hours as needed for pain. Increase water, prune juice and soluble/insoluble fiber intake. Follow-up with PCP and orthopedics regarding ongoing back/knee pain and constipation. Prescriptions: Lidocaine 4% Patch 1 patch TOPICAL Q24H PRN #10 patch PRN Reason: Pain Is patient prescribed a controlled substance at d/c from ED?: No Referrals: None,Stated [Primary Care Provider] - 1-2 days Mitra Zamora MD [REFERRING] - 1-2 days [facility] [Provider Group] - 1-2 days Time of Disposition: 21:44
[2024-09-29] MEDS: LIDOCAINE 4% PATCH TOPICAL ONE (21:13)
--- NOTE | 2024-09-29 21:32 | XR ---
EXAMINATION TYPE: XR lumbosacral spine min 4V DATE OF EXAM: 09/29/2024 8:48 PM COMPARISON: None CLINICAL INDICATION: Male, 79 years old with history of Lumbar spine TTP, knee pain, constipation; PH H, pain TECHNIQUE: XR lumbosacral spine min 4V - Frontal, lateral , bilateral oblique and coned in L5-S1 late ral views of the spine. FINDINGS: No evidence of any acute osseous pathology. No evidence of loss of vertebral body height i s seen. There is normal alignment of the lumbar vertebral bodies. Moderate to severe scattered disc s pace narrowing. Multilevel marginal osteophyte formation throughout the visualized spine. There is fa cet joint arthropathy throughout the spine. Scattered at least mild neural foraminal stenosis. Athero sclerosis of the arterial vasculature. Pseudoarthrosis of the spinous processes. IMPRESSION: 1. No acute fracture. 2. Moderate to severe multilevel disc degeneration. 3. 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 [facility], , 09/29/2024 9:30 PM
--- NOTE | 2024-09-29 21:33 | XR ---
EXAMINATION TYPE: XR knee complete LT DATE OF EXAM: 09/29/2024 8:48 PM COMPARISON: None CLINICAL INDICATION: Male, 79 years old with history of Lumbar spine TTP, knee pain, constipation; PH H, pain TECHNIQUE: XR knee complete LT 06/03/2013. views submitted. FINDINGS: No evidence of any acute osseous pathology or soft tissue swelling. Tricompartmental oste ophyte formation involving the femoral condyles, tibial plateau and patella. Severe joint space narro wing. Atherosclerosis of the arterial vasculature. Chondrocalcinosis of the menisci. IMPRESSION: 1. No acute osseous pathology. 2. Severe tricompartmental osteoarthritic changes. [facility], , 09/29/2024 9:31 PM
--- NOTE | 2024-09-29 21:34 | XR ---
EXAMINATION TYPE: XR KUB DATE OF EXAM: 09/29/2024 8:48 PM COMPARISON: Plain film same day, 02/05/2022 CLINICAL INDICATION: Male, 79 years old with history of Lumbar spine TTP, knee pain, constipation; PH H TECHNIQUE: One radiographic view of the abdomen was obtained. FINDINGS: There is a moderate stool burden, otherwise, the bowel gas pattern is nonspecific without d ilated loops of small or large bowel. . Fecal material and gas are demonstrated throughout the colon and rectum. There is no evidence for organomegaly or pneumoperitoneum. Degeneration changes of the s pine. No acute osseous process. No abnormal calcifications are present. IMPRESSION: Moderate stool burden throughout the colon. Nonspecific bowel gas pattern without radiographic eviden ce for acute process. [facility], , 09/29/2024 9:32 PM
[2024-09-29] MEDS: MAGNESIUM CITRATE 296 ML BOTTLE PO ONE (22:14)
[2024-09-29 22:15] VITALS: BP 118/67
[2024-09-29] MEDS: MINERAL OIL 133 ML ENEMA RECTAL STA (22:41)
[2024-09-29 23:03] VITALS: PULSE 75; TEMP 98.7
== END 2024-09-29 23:03 | disposition home or self-care (01) ==
LOC: EC 19:34
DX: M51.369 Other intervertebral disc degeneration, lumbar region without mention of lumbar back pain or lower extremity pain (principal); M17.12 Unilateral primary osteoarthritis, left knee; K59.00 Constipation, unspecified; F17.200 Nicotine dependence, unspecified, uncomplicated
CPT/HCPCS: 72110; 74018; 99283